=== PATIENT | male | born 1955 | race African-American/Black ===

== ENCOUNTER 2024-01-13 14:39 | Emergency (ER) | payer OTHER, MEDICAID, SELFPAY ==
--- NOTE | ~2024-01-13 | XR_ITS ---
EXAMINATION: XR CHEST, 2 VIEWS CLINICAL INFORMATION: Chest pain COMPARISON: None. TECHNIQUE: PA and lateral views of the chest were obtained. FINDINGS: Lungs are clear. No consolidation, pneumothorax, or pleural effusion. Cardiac and mediastinal contours are normal. Pulmonary vasculature is unremarkable. Trachea is midline. Mild acromioclavicular osteoarthritis bilaterally. XR/XR chest 2V IMPRESSION: No acute cardiopulmonary findings.
[2024-01-13 14:49] VITALS: BP 127/57; PULSE 103; RESP 18; TEMP 36.7; O2SAT 100; BMI 24.3
--- NOTE | 2024-01-13 14:51 | ED_ITS ---
HPI - General Adult General Chief complaint: General Medical Stated complaint: Rib pain/Ulcers/Swollen extremities Time Seen by Provider: 01/13/24 19:59 Source: patient and family Mode of arrival: ambulatory Limitations: no limitations History of Present Illness HPI narrative: Patient diabetic, hypertension used to live in [facility] brought by his daughter to stay with her nowas he is unable to take care of himself. Patient is admitted the hospital from 12/30 to 01/11 was found unresponsive sitting in the car diagnosed as DKA with blood sugar of 781 with GCS of 5 intubated on amoxicillin for bacteremia, patient is very poor historian does not know much about his medical condition also complaining of chronic leg edema Related Data Allergies Allergy/AdvReac Type Severity Reaction Status Date / Time No Known Allergies Allergy Verified 01/13/24 14:55 Review of Systems 2 Review of Systems: Yes all other systems are reviewed and are negative [facility] Social History Social History Smoked in Last 30 Days: No Use of substances other than those prescribed or required for medical reasons: No Advance Directives: No Advance Directives Information Provided: No Do you have a plan to hurt others: No Plan Physical Exam ED Vital Signs: Vital Signs - 24 hr 01/13/24 14:49 01/13/24 20:23 01/13/24 21:30 Temperature 98.1 F 98.7 F Pulse Rate 103 H 82 95 Respiratory Rate 18 Blood Pressure 127/57 L 146/50 H Pulse Oximetry 100 98 100 Oxygen Delivery Method Room Air Room Air Room Air 01/13/24 21:52 Temperature 98.7 F Pulse Rate 95 Respiratory Rate 18 Blood Pressure 141/59 H Pulse Oximetry 100 Oxygen Delivery Method Room Air BMI result Body Mass Index 24.3 Appearance: Alert. Oriented X3. No acute distress. Eyes: PERRLA, No Nystagmus ENT: Pharynx normal. Oral Mucosa moist Neck: Normal inspection. Neck supple. CVS: Normal heart rate and rhythm. Pulses normal. Respiratory: No respiratory distress. Equal air entry bilateral, no wheezing/rales/rhonchi Abdomen: Soft and nontender. Bowel sounds are present, no mass palpable, no CVA tenderness Skin: Skin warm and dry. Normal skin color. Normal skin turgor. Extremities: 3++ lower extremity edema. No calf tenderness Neuro: Oriented X 3. No motor deficit. No sensory deficit.No cerebellar signs , cranial nerves II-XII intact Course Course Course Narrative: This is an RME: Additional HPI, ROS, PE not included below will be deferred to primary provider. This is a 78-[id number]-hvn-male, with a hx of diabetes, who presents to the ER with complaints of ongoing rib pain as well as ulcers on back. Patient just flew into the area from [place], [place] yesterday. Per family member, patient was in a coma for about 1 week, and was discharged yesterday from [facility] in [facility]. Unclear whether not this is from his diabetes or a ?bacteria?. He has paperwork from the hospital however this appears to only be a discharge summary. Vital signs within normal limits. He reports intermittent shortness of breath, no chest pain. Reporting generalized weakness and difficulty walking since hospitalization. Alert and oriented Plan: Attempt to obtain medical records from [facility] in [place], labs Medications Administered Discontinued Medications Generic Name Dose Route Start Last Admin Trade Name Thad PRN Reason Stop Dose Admin Insulin Glargine 40 unit 01/13/24 20:13 01/13/24 20:27 Insulin Glargine,Hum.Rec.Anlog 100 Unit/Ml 10 Ml Vial SUBCUT 01/13/24 20:14 40 unit ONCE ONE Administration Insulin Human Lispro 10 unit 01/13/24 20:13 01/13/24 20:27 Insulin Lispro 100 Unit/Ml 3 Ml Vial SUBCUT 01/13/24 20:14 10 unit ONCE ONE Administration Medical Decision Making Medical Decision Making [facility] Narrative: Patient is stable labs at this time slightly elevated glucose but not ketoacidosis old records reviewed case management consulted patient will be seeing PCP within a month already has insulin at home was given Lantus insulin in the ER has physical therapy at home case management will follow patient as outpatient Lab Data [facility] Lab Attestation statement: I reviewed the patient's lab results. 01/13/24 15:12 01/13/24 15:12 Labs: Lab Results 01/13/24 Range/Units 15:12 WBC 7.6 (4.8-10.8) X10*3/uL RBC 3.79 L (4.60-5.80) X10*6/uL Hgb 8.6 L (14.0-18.0) g/dl Hct 28.1 L (42.0-52.0) % MCV 74.1 L (80.0-98.0) fL MCH 22.7 L (27.0-33.0) pg MCHC 30.6 L (31.0-36.0) g/dl RDW 16.7 H (11.0-16.0) % Plt Count 419 H (160-400) X10*3/uL MPV 9.1 L (9.4-12.4) fL Immature Gran % (Auto) 0.3 (0.0-0.4) % Neut % (Auto) 73.4 H (45-73) % Lymph % (Auto) 18.7 L (20-40) % [place] % (Auto) 6.7 (2-11) % Eos % (Auto) 0.4 (0-4) % Baso % (Auto) 0.5 (0-2) % Lymph # (Auto) 1.4 (1.2-4.9) X10*3/uL [place] # (Auto) 0.5 (0.1-1.2) X10*3/uL Eos # (Auto) 0.0 (0.0-0.4) X10*3/uL Baso # (Auto) 0.0 (0.0-0.2) X10*3/uL Abs Immat Gran (auto) 0.02 (0.00-0.03) X10*3/uL Absolute Neuts (auto) 5.6 (2.0-8.3) x10*3/uL Absolute Nucleated RBC 0.000 (0.0-0.012) X10*3/uL Nucleated RBC % (auto) 0.0 (0.0-0.2) /100WBC Sodium 140 (135-145) mmol/L Potassium 4.1 (3.3-5.1) mmol/L Chloride 105 (96-108) mmol/L Carbon Dioxide 27 (22-29) mmol/L Anion Gap 12 (12-20) BUN 20 H (9-16) mg/dL Creatinine 1.11 (0.5-1.4) mg/dL Estim Creat Clear Calc 66.6 Estimated GFR > 60 Random Glucose 378 H* (60-115) mg/dL Calcium 8.3 L (8.4-10.2) mg/dL Total Bilirubin 0.2 (0.0-1.0) mg/dL Direct Bilirubin < 0.2 (0.0-0.5) mg/dL AST 106 H (5-37) U/L ALT 109 H (0-40) U/L Alkaline Phosphatase 79 (39-117) U/L Troponin I High Sens 5.7 (<3.5-35.0) ng/L Total Protein 6.5 (6.5-8.0) g/dL Albumin 3.0 L (3.5-5.0) g/dL Independent Interpretation I performed an independent interpretation of an: Plain X-Ray Radiology Impression Discussion of test interpretation with radiology: I have reviewed the radiologist's reading. Discharge Plan Discharge Clinical Impression: Diabetes mellitus with hyperglycemia Patient Disposition: Home, Self-Care Instructions: Diabetic Hyperglycemia (ED) Additional Instructions: Take your insulin 40 units every night and check your blood sugar twice daily at least Take your other medications as prescribed during discharge from other hospital You need to see PCP within 4 weeks for further management Interventions: ED Discharge Assessment Last Done: 01/13/24 21:52 Discharge Date/Time: 01/13/24 21:54 Print Language: Kuwaiti
--- NOTE | 2024-01-13 14:58 | ECG_ITS ---
Test Reason : chest pain Blood Pressure : / mmHG Vent. Rate : 098 BPM Atrial Rate : 098 BPM P-R Int : 158 ms QRS Dur : 096 ms QT Int : 338 ms P-R-T Axes : 072 064 065 degrees QTc Int : 431 ms Normal sinus rhythm Possible Left atrial enlargement Minimal voltage criteria for LVH, may be normal variant ( Sokolow-Solano ) Nonspecific ST and T wave abnormality Abnormal ECG No previous ECGs available Referred By: Shiloh Mcpherson Electronically Signed By:HIGINIO GUERRERO MD
[2024-01-13 15:17] LABS: MANUAL DIFF FLAG NO
[2024-01-13 15:19] LABS: Basophils Percent Auto 0.5 % (0-2); Eosinophils Percent Auto 0.4 % (0-4); Hematocrit 28.1 % (42.0-52.0); Hemoglobin 8.6 g/dl (14.0-18.0); Imm Gran Abs Auto 0.02 X10*3/uL (0.00-0.03); Imm Gran Pct Auto 0.3 % (0.0-0.4); Lymphocytes Absolute Auto 1.4 X10*3/uL (1.2-4.9); Lymphocytes Percent Auto 18.7 % (20-40); Mean Corpuscular HGB Conc 30.6 g/dl (31.0-36.0); Mean Corpuscular Hemoglobin 22.7 pg (27.0-33.0); Mean Corpuscular Volume 74.1 fL (80.0-98.0); Mean Platelet Volume 9.1 fL (9.4-12.4); Monocytes Absolute Auto 0.5 X10*3/uL (0.1-1.2); Monocytes Percent Auto 6.7 % (2-11); Neutrophils Absolute Auto 5.6 x10*3/uL (2.0-8.3); Neutrophils Percent Auto 73.4 % (45-73); Platelet Count 419 X10*3/uL (160-400); Red Blood Count 3.79 X10*6/uL (4.60-5.80); Red Cell Distribution Width 16.7 % (11.0-16.0); White Blood Count 7.6 X10*3/uL (4.8-10.8)
[2024-01-13 15:39] LABS: Troponin-I High Sensitivity 5.7 ng/L (<3.5-35.0)
[2024-01-13 15:43] LABS: Alanine Aminotransferase 109 U/L (0-40); Alkaline Phosphatase 79 U/L (39-117); Anion Gap 12 (12-20); Aspartate Amino Transferase 106 U/L (5-37); Bilirubin Direct < 0.2 mg/dL (0.0-0.5); Bilirubin Total 0.2 mg/dL (0.0-1.0); Blood Urea Nitrogen 20 mg/dL (9-16); Calcium 8.3 mg/dL (8.4-10.2); Carbon Dioxide 27 mmol/L (22-29); Chloride 105 mmol/L (96-108); Creatinine Clr Calc Pharmacy 66.6; Estimated Glomerular Filt Rate > 60; Glucose Random 378 mg/dL (60-115); Potassium 4.1 mmol/L (3.3-5.1); Sodium 140 mmol/L (135-145); Total Protein 6.5 g/dL (6.5-8.0)
[2024-01-13 20:23] VITALS: BP 146/50; PULSE 82; O2SAT 98
[2024-01-13] MEDS: Insulin Glargine,Hum.rec.anlog 100 UNIT/ML 10 ML VIAL 40 UNIT SUBCUT (20:27)
[2024-01-13] MEDS: Insulin Lispro 100 UNIT/ML 3 ML VIAL 10 UNIT SUBCUT (20:27)
--- NOTE | 2024-01-13 21:18 | MHC.CM.ED ---
CM consult from Dr. Whitman. Met with patient and his daughter, Reena Hernandez ([phone]). Reena has supplied records from [facility] in [place], [place]. Her father was discharged from there yesterday and flew to [place]. He was homeless there. Was hospitalized from 12/30-01/11 with DKA, cardiac arrest, acute respiratory failure, JEN and sessis (nasal MRSA). Pt was discharged with a 30 day supply of his discharge medications: amoxicillin, jardiance, metformin, avorvastin, asa, and lantis insulin. Also d/c with a glucometer. D/C Summary includes follow up for diabetes management, completion of antibiotics and PCP followup for medication non-compliance. Per Reena, patient currently has [employer] Medicare. She has been working on obtaining insurance and PCP for patient. Patient will be active with [facility] on 01/21/2024 and Reena is working on MH application. Pt has solid family supports locally. Reena has called the [facility] and was told the waiting list for initial PCP appointments was 3-4 months out. She states they bring her father to the ED with a request for PCP follow up within the month. She will then bring our ED paperwork to the [facility] for Initial PCP appointment. Daughter denies needing any medications at this time. Pt will live with family and she will be involved with his care. Family has a first floor apartment. Pt uses a cane, ambulates with steady gait and daughter states he wears adult briefs. They have no current services, but daughter has arranged for [facility] as noted. Daughter is aware that she can bring her father back to the ED with any medical concerns. Dr. Whitman aware of above conversation and needs for discharge note with PCP visit within the month.
[2024-01-13 21:30] VITALS: PULSE 95; TEMP 37.1; O2SAT 100
[2024-01-13 21:52] VITALS: BP 141/59; PULSE 95; RESP 18; TEMP 37.1; O2SAT 100
== END 2024-01-13 21:54 | disposition home or self-care (01) ==
PROVIDERS: Physician Assistant Medical; Emergency Provider Internal Medicine
DX: E11.65 Type 2 diabetes mellitus with hyperglycemia (principal); R07.9 Chest pain, unspecified; R53.1 Weakness; R60.0 Localized edema; Z79.4 Long term (current) use of insulin
CPT/HCPCS: 36415; 71046; 80048; 80076; 84484; 85025; 93005; 99284

== ENCOUNTER → 2024-01-13 14:58 | Outpatient (BNV) | payer MEDICARE, SELFPAY | PROVIDERS: Visit Provider Internal Medicine Cardiovascular Disease | DX: R94.31 Abnormal electrocardiogram [ECG] [EKG] (principal) | CPT/HCPCS: 93010 ==

== ENCOUNTER 2024-04-09 09:07 | Outpatient (REF) | payer OTHER, SELFPAY ==
[2024-04-09 16:37] LABS: Microalbum/Creatinine Ratio Ur 14.8 ug/mg cr (<30); Microalbumin Urine 15.5 mg/L
[2024-04-09 20:59] LABS: Alanine Aminotransferase 24 U/L (0-40); Albumin Level 3.8 g/dL (3.5-5.0); Alkaline Phosphatase 68 U/L (39-117); Anion Gap 13 (12-20); Aspartate Amino Transferase 20 U/L (5-37); Bilirubin Total 0.2 mg/dL (0.0-1.0); Blood Urea Nitrogen 15 mg/dL (9-16); Calcium 9.1 mg/dL (8.4-10.2); Carbon Dioxide 27 mmol/L (22-29); Chloride 108 mmol/L (96-108); Cholesterol 172 mg/dL (<200); Estimated Glomerular Filt Rate > 60; Glucose Random 80 mg/dL (60-115); HDL Cholesterol 65 mg/dL (>40); LDL Cholesterol Calculated 97 mg/dL (<100); Potassium 3.8 mmol/L (3.3-5.1); Sodium 144 mmol/L (135-145); Total Protein 8.1 g/dL (6.5-8.0); Triglycerides 52 mg/dL (<150)
[2024-04-09 21:18] LABS: TSH reflex Free T4 2.12 uIU/mL (0.32-4.0); Vitamin D 25-OH Total 29.4 ng/mL (>30)
[2024-04-09 22:20] LABS: Reflex LDLD? No
[2024-04-10 04:07] LABS: HBS Num1 0.55 mIU/mL (0-7.99); HBc Num1 0.12 S/CO (0.00-0.79); HBsAGNum1 0.29 S/CO (0.00-0.99); HIV AB/AG Nonreactive (Nonreactive); HIV Num 1 0.07 S/CO (0.00-0.99); Hepatitis A Antibody IgM 0.23 Index (0-0.79); Hepatitis B Core Antibody Nonreactive (Nonreactive); Hepatitis B Surface Antigen Negative (Negative); ~HepC Num1 0.13 S/CO (0.00-0.79); ~Hepatitis A Antibody IgM Nonreactive (Nonreactive); ~Hepatitis B Surface Antibody NONREACTIVE (Nonreactive); ~Hepatitis C Antibody Nonreactive (Nonreactive)
[2024-04-11 23:35] LABS: RPR Rapid Plasma Reagin NON-REACTIVE (NON-REACTIVE)
== END 2024-04-09 09:08 | disposition home or self-care (01) ==
LOC: HO.HHCL 09:07
PROVIDERS: Visit Provider Internal Medicine
DX: E11.65 Type 2 diabetes mellitus with hyperglycemia (principal); F10.10 Alcohol abuse, uncomplicated; Z79.4 Long term (current) use of insulin
CPT/HCPCS: 36415; 80053; 80061; 82043; 82306; 82570; 84443; 86592; 86704; 86706; 86709; 86803; 87340; 87389

== ENCOUNTER 2024-04-15 12:58 | Outpatient (REF) | payer OTHER, SELFPAY ==
[2024-04-18 09:49] LABS: TS Negative Control Passed; TS Panel A 3; TS Panel B 0; TS Positive Control Passed; TSpotTB Negative (Negative)
== END 2024-04-15 12:59 | disposition home or self-care (01) ==
LOC: HO.HHCL 12:58
PROVIDERS: Visit Provider Internal Medicine
DX: Z11.1 Encounter for screening for respiratory tuberculosis (principal)
CPT/HCPCS: 36415; 86481

== ENCOUNTER 2024-08-11 13:02 | Outpatient (AMB) | payer OTHER, SELFPAY ==
--- NOTE | 2024-08-11 14:16 | A.OFFVIS_ITS ---
Intake Visit Reasons: HX Retention/LUTZ/Fam HX Prostate Ca Intake Note: New patient is present for Hx of Urinary Retention/LUTS/Family Hx of Prostate Ca Urology Med: None Antibiotic Allergy: None Blood Thinner: Aspirin Family History: Bladder Cancer? No Prostate Cancer? Yes, Brother Mother: Breast Cancer PVR: 40ml Patient states that he has a lot of urinary frequency issues States he gets up 4-5 times during the night Semiconductor Bonder Required: Yes Semiconductor Bonder Language: Carpenter Supervisor Services: Semiconductor Bonder Present Accompanied by: Self / Same As Patient Allergies No Known Allergies Allergy (Verified 08/11/24 14:57) HPI Comments Details: Jamari is a pleasant Bolivian-speaking male. He is a patient of . He is seen for the following urologic conditions - lower urinary tract symptoms Bolivian translation provided by qualified jalousies installer Lower urinary tract symptoms Prior presentation with nocturia times 4-5, urinary urgency and frequency, weak stream Family history prostate cancer brother Recommend trial of combination therapy alpha-amber +5 AR Organize PSA, bladder ultrasound to measure prostate Plan office cystoscopy [facility] Medical History (Updated 08/11/24 @ 15:16 by William Cabrera MD) Nocturia H/O urinary frequency H/O urinary retention Lower urinary tract symptoms (LUTS) Vitamin D deficiency, unspecified Essential (primary) hypertension White matter disease, unspecified Bilateral primary osteoarthritis of knee Alcohol abuse Mixed hyperlipidemia Type 2 diabetes mellitus with hyperglycemia Family History Brother Prostate cancer Mother Diabetes mellitus, type II Breast cancer in female Review of Systems Const Denies chills and Denies fever(s) Card Reports no additional complaints and Denies syncope Resp Denies cough GI Denies abdominal pain and Denies heartburn Reports as per HPI and Denies change in libido Neuro Denies syncope Psych Denies change in libido Endo Denies change in libido Physical Exam Const General: cooperative, healthy appearing, comfortable and no acute distress Orientation/consciousness: patient oriented x3 HEENT Face and sinus: Yes normal facial exam Mouth: moist mucous membranes Neck Neck: Yes normal visual inspection, Yes full ROM and Yes trachea midline Chest Chest palpation & inspection: normal inspection of the chest Resp Effort & Inspection: normal respiratory effort, able to speak in complete sentences and no respiratory distress GI Inspection: Yes normal to inspection Back/Spine/Pelvis Cervical Spine: normal cervical lordosis Thoracic/Lumbar Spine: thoracic and lumbar spine normal to inspection Skin General skin exam: no rashes or lesions noted Neuro General: patient oriented x3, gait normal, tone normal and moves all extremities Extrem General: Yes normal to inspection and Yes capillary refill normal Office Procedures Post Void Residual Post Residual Void Post Void Residual (PVR): 40 [id number]-[id number] Void Residual by ultrasound Quality Reporting (2019) Benign Prostatic Hyperplasia ([facility] 771) AUA symptom score: 12 Quality of life due to urinary symptoms: If you were to spend the rest of your life with your urinary condition the way it is now, how would you feel about that?: Mixed: about equally satisfied and dissatisfied Assessment & Plan Assessment & Plan (1) Incomplete emptying of bladder due to benign prostatic hyperplasia: Code(s): N40.1 - Benign prostatic hyperplasia with lower urinary tract symptoms; R33.9 - Retention of urine, unspecified Category: Medical (2) Lower urinary tract symptoms (LUTS): Code(s): R39.9 - Unspecified symptoms and signs involving the genitourinary system Category: Medical Plan Start combination therapy Bladder imaging Office cystoscopy Orders: Orders US bladder 2 Months R39.9 - Unspecified symptoms and signs involving the genitourinary system Prostate Specific Antigen Today E11.69 - Type 2 diabetes mellitus with other specified complication, N52.1 - Erectile dysfunction due to diseases classified elsewhere, R39.9 - Unspecified symptoms and signs involving the genitourinary system AMB Post Void Residual by ultrasound Today R33.9 - Retention of urine, unspecified Medications: New finasteride 5 mg PO DAILY 90 days 90 tabs 1RF N13.8 - Other obstructive and reflux uropathy, N40.1 - Benign prostatic hyperplasia with lower urinary tract symptoms, R33.9 - Retention of urine, unspecified, R39.9 - Unspecified symptoms and signs involving the genitourinary system tamsulosin 0.4 mg PO BEDTIME 90 days 90 caps 1RF N13.8 - Other obstructive and reflux uropathy, N40.1 - Benign prostatic hyperplasia with lower urinary tract symptoms, R39.9 - Unspecified symptoms and signs involving the genitourinary system Patient Instructions: Imaging studies, laboratory and physical exam results were discussed and reviewed in detail. No major barriers to patient understanding were identified. An opportunity to ask questions regarding the treatment plan was provided. All questions were answered. The patient expressed understanding and agreement with the above treatment plan. The patient is aware they should contact our office by phone for worsening of their current condition or the appearance of new urologic symptoms. Compliance is encouraged with any medications and followup testing that is ordered. It is a privilege to participate in the urologic care of your patient. If you have any questions or concerns regarding treatment for the above conditions, or other urologic issues, please do not hesitate to contact me. The office telephone contact is [phone]. This note is constructed using voice recognition software. While every effort has been made to ensure accuracy snack stewardess errors may have been included. Yours sincerely, Dr William Cabrera MD, [facility] Providers of Expert, Compassionate Care for the Genitourinary System Coding Level of Care Code New Pt Level 4 (74954) Diagnoses Incomplete emptying of bladder due to benign prostatic hyperplasia N40.1; R33.9 Lower urinary tract symptoms (LUTS) R39.9 CPT Codes Post Residual Void - PVR CPT Code: 61102-Ctds Void Residual by ultrasound ([id number]) AUA Symptom Score AUA Incomplete emptying - It does not feel like I empty my bladder all the way.: 1 - Less than 1 time in 5 Frequency - I have to go again less than two hours after I finish urinating.: 4 - More than half the time Intermittency - I stop and start again several times when I urinate.: 3 - About half the time Urgency - It is hard to wait when I have to urinate.: 0 - Not at all Weak stream - I have a weak urinary stream.: 0 - Not at all Straining - I have to push or strain to begin urination.: 0 - Not at all Nocturia - I get up to urinate after I go to bed until the time I get up in the morning.: 4 times AUA Symptom Score: 12 Quality of life due to urinary symptoms: If you were to spend the rest of your life with your urinary condition the way it is now, how would you feel about that?: Mixed: about equally satisfied and dissatisfied Source: Lucio HERNÁNDEZ, Audra NAIK Jr, O'Dena MP, et al, and the Measurement Committee of the [employer]. The [employer] symptom index for benign prostatic hyperplasia. J Urol. 1992; 148: 0445-0140. Copyright 1992 [employer]
== END 2024-08-11 15:19 | disposition home or self-care (01) ==
PROVIDERS: PCP Internal Medicine; Visit Provider Urology
DX: N40.1 Benign prostatic hyperplasia with lower urinary tract symptoms (principal); R33.9 Retention of urine, unspecified; R39.9 Unspecified symptoms and signs involving the genitourinary system
CPT/HCPCS: 99204

== ENCOUNTER → 2024-08-11 13:02 | Outpatient (BNVA) | payer OTHER, SELFPAY | PROVIDERS: PCP Internal Medicine; Visit Provider Urology | DX: N40.1 Benign prostatic hyperplasia with lower urinary tract symptoms (principal); N13.8 Other obstructive and reflux uropathy; R33.9 Retention of urine, unspecified; R35.1 Nocturia; R39.9 Unspecified symptoms and signs involving the genitourinary system; Z80.42 Family history of malignant neoplasm of prostate | CPT/HCPCS: 51798; 99202 ==

== ENCOUNTER 2024-09-29 11:17 | Outpatient (REF) | payer OTHER, SELFPAY ==
--- NOTE | ~2024-09-29 | US_ITS ---
EXAMINATION: US BLADDER HISTORY: R39.9 - Unspecified symptoms and signs involving the genitourinary system COMPARISON: There are no prior studies for comparison. FINDINGS: Sonographic examination of the urinary bladder was performed before and after voiding. Before voiding, the urinary bladder measured 10.6 x 5.2 x 8.8 cm for an estimated volume of 255 mL. No intrinsic bladder abnormality is identified. Bilateral ureteral jets are identified. After voiding, the urinary bladder measured 4.4 x 2.4 x 3.6 cm for an estimated volume of 20 mL. The prostate measures 3.3 x 3.5 x 4.0 cm. US/US bladder IMPRESSION: Post void bladder residual of 20 mL. No intrinsic bladder abnormality is identified. Electronically signed by: Devon Stephens MD 10/01/2024 09:58 AM EST
--- OUTSIDE RECORDS SUMMARY | 2024-09-29 11:39 | XMS_ITS | Continuity of Care Document ---
Author Organization [facility] Address [address] [place] [address] Phone Care Team Providers Care Print Machine Operator Name Role Phone A Telephone, Call Unavailable Unavailable Advance Directives Directive Yes / No Effective Date File Name No Information Encounters Encounter Description Practice Location Reason(s) For Visit Diagnoses Date Provider Providers Copied on Encounter [facility], [address], [place], [id number], tel:[phone] [facility] No Information A Telephone Call. . Family [...]
== END 2024-09-29 11:18 | disposition home or self-care (01) ==
LOC: HO.US 11:17
PROVIDERS: PCP Internal Medicine; Visit Provider Urology
DX: R39.9 Unspecified symptoms and signs involving the genitourinary system (principal)
CPT/HCPCS: 76857

== ENCOUNTER → 2024-09-29 11:19 | Outpatient (BNV) | payer OTHER, SELFPAY | PROVIDERS: PCP Internal Medicine; Visit Provider Radiology Diagnostic Radiology | DX: R39.9 Unspecified symptoms and signs involving the genitourinary system (principal) | CPT/HCPCS: 76857 ==

== ENCOUNTER 2024-10-05 13:22 | Outpatient (REF) | payer OTHER, SELFPAY ==
[2024-10-05 14:56] LABS: Prostate Specific Antigen 0.43 ng/mL (<0.05-4.0)
--- OUTSIDE RECORDS SUMMARY | 2024-10-05 15:41 | XMS_ITS | Continuity of Care Document ---
Author Organization [facility] Address [address] [place] [address] Phone Care Team Providers Care Separator Inserter Name Role Phone A Telephone, Call Unavailable Unavailable Advance Directives Directive Yes / No Effective Date File Name No Information Encounters Encounter Description Practice Location Reason(s) For Visit Diagnoses Date Provider Providers Copied on Encounter [facility], [address] [place], [place], [id number], tel:[phone] [facility] No Information A Telephone Call. . Family History Family Member Type Diagnosis Age At Onset No Information Payers Payer name Insurance type Covered alliance party ID Authoriza tion(s) No Information Social [...]
== END 2024-10-05 13:23 | disposition home or self-care (01) ==
LOC: HO.LAB 13:22
PROVIDERS: PCP Internal Medicine; Visit Provider Urology
DX: E11.69 Type 2 diabetes mellitus with other specified complication (principal); N52.1 Erectile dysfunction due to diseases classified elsewhere; R39.9 Unspecified symptoms and signs involving the genitourinary system; Z12.5 Encounter for screening for malignant neoplasm of prostate; Z12.11 Encounter for screening for malignant neoplasm of colon; K59.01 Slow transit constipation; E78.2 Mixed hyperlipidemia; I10 Essential (primary) hypertension; M81.0 Age-related osteoporosis without current pathological fracture
CPT/HCPCS: 36415; 84153; 99212

== ENCOUNTER 2024-10-05 13:51 | Outpatient (AMB) | payer OTHER, SELFPAY ==
[2024-10-05 13:59] VITALS: BP 132/64; PULSE 76; O2SAT 99; BMI 26.7
--- NOTE | 2024-10-05 13:59 | MHC.OFFVIS ---
Vital Signs 10/05/24 13:59 Height 5 ft 10 in Weight 186 lb 1.122 oz BMI 26.7 BP 132/64 Blood Pressure Location Rt brachial Position Sitting Pulse 76 Pulse Source Pulse Oximeter Pulse Oximetry (%) 99 Oxygen Delivery Method Room Air Intake Visit Reasons: Colonoscopy Screening Intake Note: NEW PATIENT Reason; [place] scrn Prior hx of colo/egd? N Concerns/Questions? No significant concerns per pt. Allergies No Known Allergies Allergy (Verified 10/05/24 14:00) HPI HPI Colonoscopy Screening: Details: 70-year-old male with past medical history of hyperlipidemia, diabetes, osteoarthritis, hypertension i s here today for pre colonoscopy screening.? Patient was sent to us by his PCP.? This is his first colonoscopy screening.? Patient denies any gastrointestinal symptoms in the past or at present.? Denies any personal or family history of gastrointestinal disease, colon polyps, or CRC.? Patient reports to be times. Denies melena, hematochezia. Denies history of difficulty with sedation or anesthesia in the past.? Negative for history of sleep apnea.? Denies any history of cardiac, renal, pulmonary, or hepatic disease.?? No history of infectious? diseases like hepatitis A, B, C, HIV or tuberculosis.? Patient is on low-dose aspirin. Patient just moved here from [facility] in December to be close to his daughter and his son. Patient has a history of alcohol, crack, cocaine and crystal meth use while he was living in [facility]. Free of drug and alcohol use for the last 6 months [facility] Medical History Nocturia H/O urinary frequency H/O urinary retention Lower urinary tract symptoms (LUTS) Vitamin D deficiency, unspecified Essential (primary) hypertension White matter disease, unspecified Bilateral primary osteoarthritis of knee Alcohol abuse Mixed hyperlipidemia Type 2 diabetes mellitus with hyperglycemia Family History Brother Prostate cancer Mother Diabetes mellitus, type II Breast cancer in female Review of Systems Const Denies weight gain and Denies weight loss ENT Reports no additional complaints, Denies dysphagia and Denies odynophagia Card Reports no additional complaints Resp Reports no additional complaints GI Denies abdominal pain, Denies belching, Denies melena, Denies bloating, Denies change in bowel habits, Denies dysphagia, Denies excessive flatus, Denies dyspepsia, Denies heartburn, Denies diarrhea, Denies loose stools, Denies nausea, Denies odynophagia and Denies vomiting Reports no additional complaints Musc Reports no additional complaints Neuro Reports no additional complaints Psych Reports no additional complaints Endo Reports no additional complaints Physical Exam Vital Signs: Last Vital Signs Pulse 76 10/05/24 13:59 BP 132/64 10/05/24 13:59 Pulse Ox 99 10/05/24 13:59 Oxygen Delivery Method Room Air 10/05/24 13:59 BMI result Body Mass Index 26.7 Const General: healthy appearing, no acute distress and well developed Nutritional Appearance: well nourished Orientation/consciousness: patient oriented x3 Resp Effort & Inspection: normal respiratory effort, able to speak in complete sentences, no tracheal deviation and symmetric chest movement Auscultation: clear to auscultation bilaterally Cardio Rate: regular rate GI Inspection: Yes normal to inspection and No distended Palpation (GI): Soft to palpation, not firm, nontender and No hepatosplenomegaly present Auscultation: normal bowel sounds General: Yes no CVA tenderness Back/Spine/Pelvis Back: no CVA tenderness Skin General skin exam: elasticity normal, turgor normal and dry skin Neuro General: patient oriented x3 Psych Appearance: grossly normal Mental Status: mental status grossly normal Assessment & Plan Assessment & Plan (1) Screen for colon cancer: Code(s): Z12.11 - Encounter for screening for malignant neoplasm of colon (2) Constipation: Code(s): K59.00 - Constipation, unspecified Qualifiers: Constipation type: slow transit constipation Qualified Code(s): K59.01 - Slow transit constipation Plan Patient denies any cardiac or respiratory symptoms.? Denies any issues with anesthesia in the past.? Denies any history of sleep apnea.? No history infectious diseases in the past or present.? Patient is on low-dose aspirin.? No family or personal history of colon cancer or polyps.? Patient denies melena, hematochezia, unintentional weight loss or ribbon like stools.? Patient reports constipation. Increase fluid intake, fiber and activity to promote better bowel motility. Start Dulcolax daily. Prep instructions given to patient. Patient will return in 2 months to discuss prep. Labs ordered by PCP will review next visit. Patient is agreeable to this plan and verbalizes understanding of instructions. He was given the opportunity to ask questions and all questions answered. Thank you for allowing me to participate in his care Medications: New bisacodyl (Dulcolax (bisacodyl)) 10 mg (2 x 5 mg) PO BEDTIME 60 tabs 4RF Coding Level of Care Code New Pt Level 3 (42031) Diagnoses Screen for colon cancer Z12.11 Slow transit constipation K59.01 Constipation type: slow transit constipation Time Spent (min) 40 Comment 30 minutes spent with patient and additional 10 minute spent reviewing his records
--- OUTSIDE RECORDS SUMMARY | 2024-10-05 16:17 | XMS_ITS | Continuity of Care Document ---
Author Organization [facility] Address [address] [place] [address] Phone Care Team Providers Care Household Manager Name Role Phone A Telephone, Call Unavailable Unavailable Advance Directives Directive Yes / No Effective Date File Name No Information Encounters Encounter Description Practice Location Reason(s) For Visit Diagnoses Date Provider Providers Copied on Encounter [facility], [address], [place], [id number], tel:[phone] [facility] No Information A Telephone Call. . Family [...]
== END 2024-10-05 14:32 | disposition home or self-care (01) ==
PROVIDERS: PCP Internal Medicine; Visit Provider Nurse Practitioner Family
DX: Z01.818 Encounter for other preprocedural examination (principal); Z12.11 Encounter for screening for malignant neoplasm of colon; K59.01 Slow transit constipation
CPT/HCPCS: 99024

== ENCOUNTER → 2024-10-12 09:47 | Outpatient (BNVA) | payer OTHER, SELFPAY | PROVIDERS: PCP Internal Medicine; Visit Provider Urology | DX: N40.1 Benign prostatic hyperplasia with lower urinary tract symptoms (principal); R33.8 Other retention of urine; R35.1 Nocturia; R39.15 Urgency of urination; R35.0 Frequency of micturition; R39.12 Poor urinary stream | CPT/HCPCS: 52000; 81003; 99212 ==

== ENCOUNTER 2024-12-01 14:28 | Outpatient (AMB) | payer OTHER, SELFPAY ==
--- NOTE | 2024-12-01 14:51 | MHC.OFFVIS ---
Vital Signs 12/01/24 15:08 Height 5 ft 10 in Weight 184 lb 4.903 oz BMI 26.4 BP 148/66 H Blood Pressure Location Rt brachial Position Sitting Pulse 76 Pulse Source Pulse Oximeter Pulse Oximetry (%) 100 Oxygen Delivery Method Room Air Intake Visit Reasons: Discuss colo prep & Constipation Intake Note: ESTABLISHED PATIENT for constipation mgmt and pre op. Chief Complaint; Pt denies any GI concerns at this time. Pt has procedure w/ urology at the end of this month prior to having colonoscopy scheduled. Payroll And Benefits Coordinator Required: No Accompanied by: Self / Same As Patient Allergies No Known Allergies Allergy (Verified 12/01/24 14:51) HPI HPI Discuss colo prep & Constipation: Details: LAST VISIT Screen for colon cancer Constipation Plan Patient denies any cardiac or respiratory symptoms.? Denies any issues with anesthesia in the past.? Denies any history of sleep apnea.? No history infectious diseases in the past or present.? Patient is on low-dose aspirin.? No family or personal history of colon cancer or polyps.? Patient denies melena, hematochezia, unintentional weight loss or ribbon like stools.? Patient reports constipation. Increase fluid intake, fiber and activity to promote better bowel motility. Start Dulcolax daily. Prep instructions given to patient. Patient will return in 2 months to discuss prep. Labs ordered by PCP will review next visit. Patient is agreeable to this plan and verbalizes understanding of instructions. He was given the opportunity to ask questions and all questions answered. ? Thank you for allowing me to participate in his care Medications New bisacodyl (Dulcolax (bisacodyl)) 10 mg (2 x 5 mg) PO BEDTIME 60 tabs 4RF TODAY'S VISIT Patient is here today for follow-up and to discuss going for colonoscopy. Colonoscopy not scheduled yet. Message sent to Surgical schedules to bulk procedure for patient. Patient has bladder surgery end of this month. Patient reports that he is moving his bowels better now that he takes Dulcolax daily. Patient denies any melena, hematochezia, unintentional weight loss or ribbon like stools. Denies any dyspepsia, dysphagia or odynophagia. Patient denies any issues with anesthesia in the past. No history of sleep apnea. On low-dose aspirin. Denies any family history of CRC. [facility] Medical History Nocturia H/O urinary frequency H/O urinary retention Lower urinary tract symptoms (LUTS) Vitamin D deficiency, unspecified Essential (primary) hypertension White matter disease, unspecified Bilateral primary osteoarthritis of knee Alcohol abuse Mixed hyperlipidemia Type 2 diabetes mellitus with hyperglycemia Family History Brother Prostate cancer Mother Diabetes mellitus, type II Breast cancer in female Review of Systems Const Denies weight gain and Denies weight loss ENT Reports no additional complaints, Denies dysphagia and Denies odynophagia Card Reports no additional complaints Resp Reports no additional complaints GI Denies abdominal pain, Denies belching, Denies melena, Denies bloating, Denies change in bowel habits, Denies dysphagia, Denies excessive flatus, Denies dyspepsia, Denies heartburn, Denies diarrhea, Denies loose stools, Denies nausea, Denies odynophagia and Denies vomiting Reports no additional complaints Musc Reports no additional complaints Neuro Reports no additional complaints Psych Reports no additional complaints Endo Reports no additional complaints Physical Exam Const General: healthy appearing, no acute distress and well developed Nutritional Appearance: well nourished Orientation/consciousness: patient oriented x3 Resp Effort & Inspection: normal respiratory effort, able to speak in complete sentences, no tracheal deviation and symmetric chest movement Auscultation: clear to auscultation bilaterally Cardio Rate: regular rate GI Inspection: Yes normal to inspection and No distended Palpation (GI): Soft to palpation, not firm, nontender and No hepatosplenomegaly present Auscultation: normal bowel sounds General: Yes no CVA tenderness Back/Spine/Pelvis Back: no CVA tenderness Skin General skin exam: elasticity normal, turgor normal and dry skin Neuro General: patient oriented x3 Psych Appearance: grossly normal Mental Status: mental status grossly normal Assessment & Plan Assessment & Plan (1) Screen for colon cancer: Code(s): Z12.11 - Encounter for screening for malignant neoplasm of colon (2) Constipation: Code(s): K59.00 - Constipation, unspecified Qualifiers: Constipation type: slow transit constipation Qualified Code(s): K59.01 - Slow transit constipation Plan Continue Dulcolax daily. With expect before during and after procedure discussed with patient. Stressed the importance of good bowel prep and clear liquid diet. Patient denies any cardiac or respiratory symptoms. Will have procedure at the end of this month with urology. He will be seen after the procedure. Patient was encouraged to call us if he will have any GI concerning symptoms or if any questions. Patient is agreeable to current plan of care and verbalizes understanding of instructions. He was given the opportunity to ask questions and all questions answered. Thank you for allowing me to participate in his care Medications: Refilled bisacodyl (Dulcolax (bisacodyl)) 10 mg (2 x 5 mg) PO BEDTIME 180 tabs 2RF Coding Level of Care Code Est Pt Level 3 (34939) Diagnoses Screen for colon cancer Z12.11 Slow transit constipation K59.01 Constipation type: slow transit constipation Time Spent (min) 25 Comment 15 minutes spent with patient and additional 10 minute spent reviewing his records
[2024-12-01 15:08] VITALS: BP 148/66; PULSE 76; O2SAT 100; BMI 26.4
--- OUTSIDE RECORDS SUMMARY | 2024-12-01 17:06 | XMS_ITS | Encounter Summary ---
Author Organization [employer] Address [address] [place] [address] Care Team Providers Care Mortgage Loan Assistant Name Role Phone Roma Sharma MD Primary Care Provider + Carlos Eduardo Marinelli PharmD Unavailable [phone] Encounter Details Date Type Department Care Team (Latest Contact Info) Description 11/29/2024 Travel Social History Tobacco Use Types Packs/Day Years Used Date Smoking Tobacco: Never Smokeless Tobacco: Never Alcohol Use Standard Drinks/Week Comments Not Currently 1 (1 standard drink = 0.6 oz pure alcohol) Oca, Used to drink heavily 6 pack/d until 12/2023 for the previous 15y Depression Answer Date Recorded Patient Health Questionnaire-9 Score 12 11/29/2024 Patient Health Questionnaire-9 Score 12 11/29/2024 Last PHQ-9: Questionnaire Data Not on file 0 11/29/2024 Housing Stability Answer Date Recorded What is your housing situation today? I have [employer] 03/30/[address] you li ve. Do you have problems with any of the following? None of the above 03/30/2024 Food Insecurity Answer Date Recorded Within the past 12 months, y ou worried that your food would run out before you got money to buy more: Never True 03/30/2024 Within the past 12 months,th e food you bought just didn't last and you didn't have enough money to get more: Never True 05/2024 Transportation Answer Date Recorded In the past 12 months, has l ack of transportation kept you from medical appts, meetings, work or from getting things needed for daily living? Yes, it has kept me from medical appointments or getting medications. 04/06/2024 Utilities Answer Date Recorded In the past 12 months, has t he electric, gas, oil or water company threatened to shut off services in your home? No 03/30/2024 Depression Answer Date Recorded Patient Health Questionnaire-2 Score 2 11/29/2024 Internet Access Answer Date Recorded Internet Access Q1 Yes 05/21/2024 Internet Access Q2 Not on file 05/21/2024 Sex and Gender Information Value Date Recorded Sex Assigned at Male 01/26/2024 12:32 PM EDT Legal Sex Male 10:25 AM EDT Gender Identity Male 01/26/2024 12:32 PM EDT Sexual Orientation Straight 01/26/2024 12 :32 PM EDT documented as of this encounter Plan of Treatment Upcoming Encounters Date Type Department Care Team (Late st Contact Info) Description 12/03/2024 10:30 AM EDT Medication Management [facility] MEDICINE [address] [place] [phone] Carlos Eduardo Marinelli, Anant [address] [place] [address] 12/17/2024 10:30 AM EDT Office Visit [facility] ADULT DENTAL [address] [place] [phone] Ronald Church, TYRESE [address] [place] [address] 01/04/2025 11:45 AM EDT Office Visit [facility] MEDICINE [address] [place] [phone] Roma Sharma MD [address] [place] [address] 03/29/2025 10:00 AM EDT Office Visit [facility] ADULT DENTAL [address] [place] [address] Heather Victor documented as of this encounter Goals Goal Patient Goal Type Associated Problems Recent Progress Patient-Stated? Author Blood Pressure < 140/90 Blood Pressure 140/80(2024 11:01 AM EST) No Carlos Eduardo Marinelli, PharmSasha Hemoglobin A1c < 7 Result Component 7.1( 10:54 AM EST) No Carlos Eduardo Marinelli PharmD documented as of this encounter Visit Diagnoses Not on filedocumented in this encounter Additional Health Concerns Assessment Noted Time PHQ-9 Depression Total Score: 12 025 10:44 AM EDT documented as of this encounter Care Teams Mortgage Loan Assistant Relationship Specialty Start Date End Date Roma Sharma MD [address] [place] [id number] PCP - General Internal Medicine 04/06/24 Carlos Eduardo Marinelli, Anant [address] [place] [phone] Pharmacist Internal Medicine 05/19/24 documented as of this encounter
--- OUTSIDE RECORDS SUMMARY | 2024-12-01 17:06 | XMS_ITS | Encounter Summary ---
Author Organization [employer] Address [address] [place] [address] Care Team Providers Care Soft Sugar Operator Head Name Role Phone Roma Sharma MD Primary Care Provider + Carlos Eduardo Marinelli PharmD Unavailable [phone] Reason for Visit * Reason Onset Date Comments Med Refill 08/16/2024 Encounter Details Date Type Department Care Team (Late st Contact Info) Description 08/16/2024 Refill [facility] MEDICINE [address] [place], [place] [phone] Roma Sharma MD [address] [place], [place] [phone] Type 2 diabetes mellitus with hyperglycemia, with long-term current use of insulin ([facility]) Social History Tobacco Use Types Packs/Day Years Used Date Smoking Tobacco: Never Smokeless Tobacco: Never Alcohol Use Standard Drinks/Week Comments Not Currently 1 (1 standard drink = 0.6 oz pure alcohol) [place]ca, Used to drink heavily 6 pack/d until 12/2023 for the previous 15y Housing Stability Answer Date Recorded What is your housing situation today? I have [employer] 03/30/[address] you [...] Date Recorded Patient Health Questionnaire-2 Score 2 07/30/2024 Internet Access Answer Date Recorded Internet Access [...] Description 12/03/2024 10:30 AM EDT Medication Management [facility] MEDICINE [address] [place] [phone] Carlos Eduardo Marinelli, PharmD [address] [place] [phone] 12/17/2024 10:30 AM EDT Office Visit [facility] ADULT DENTAL [address] [place] [phone] Ronald Church DMD [address] [place] [address] 01/04/2025 11:45 AM EDT Office Visit [facility] MEDICINE [address] [place] [phone] Roma Sharma MD [address] [place] [phone] 03/29/2025 10:00 AM EDT Office Visit [facility] ADULT DENTAL [address] [place] [phone] Heather Victor documented as of this encounter Goals Goal Patient Goal Type Associated Problems Recent Progress Patient-Stated? Author Blood Pressure < 140/90 Blood Pressure 140/80(2024 11:01 AM EST) No Carlos Eduardo Marinelli PharmD Hemoglobin A1c < 7 Result Component 7.1( 5 10:54 AM EST) No Carlos Eduardo Marinelli PharmD documented as of this encounter Visit Diagnoses Diagnosis Type 2 diabetes mellitus with hyperglycemia, with long-term current use of insulin ([facility]) documented in this encounter Care Teams Soft Sugar Operator Head Relationship Specialty Start Date End Date Roma Sharma MD [address] [place] [phone] PCP - General Internal Medicine 04/06/24 Carlos Eduardo Marinelli PharmD [address] [place] [phone] Pharmacist Internal Medicine 05/19/24 documented as of this encounter
--- OUTSIDE RECORDS SUMMARY | 2024-12-01 17:06 | XMS_ITS | Clinical Summary ---
Demographics Address [address] [place] [address] Home Phone Work Phone Mobile Phone Home Phone Preferred Language es Marital Status Taoism Affiliation Unknown Race White Ethnic Group or Author Organization [address] [facility] Address [address] [place] [address] Phone Care Team Providers Care Railroad Accountant Name Role Phone Roma Sharma MD Primary Care Provider [phone] Allergies No known active allergies Medications metFORMIN XR (GLUCOPHAGE-XR) 500 mg 24 hr tablet Take 2 tablets (1,000 mg total) by mouth 2 (two) times a day. 4 Active insulin glargine (Lantus Solostar U-100 Insulin) 100 unit/mL (3 mL) injection pen INJECT 10 UNITS UNDER THE SKIN ONCE DAILY 4 Active liraglutide (Victoza 2-Haja) 0.6 mg/0.1 mL (18 mg/3 mL) injection INJECT UNDER THE SKIN 1.2 mg DAILY 4 Active ketoconazole (NIZORAL) 2 % cream Apply cream to the affected areas of the bottom and top of feet twice daily 4 Active tamsulosin (FLOMAX) 0.4 mg 24 hr capsule Take 2 capsules (0.8 mg total) by mouth daily. 3 Active losartan (COZAAR) 50 mg tablet Take 1 tablet (50 mg total) by mouth daily. 4 025 Active TechLITE Pen Needle 32 gauge x /32 needle use to INJECT victoza and lantus for total of 2 injections per day 4 Active dulaglutide (Trulicity) 0.75 mg/0.5 mL pen injector injection Inject 0.5 mL (0.75 mg total) under the skin. 4 Active acetaminophen (TYLENOL) 500 mg tablet Take 1 tablet (500 mg total) by mouth every 6 hours as needed. 4 Active aspirin 81 mg EC tablet Take 1 tablet (81 mg total) by mouth 1 (one) time each day. 4 Active atorvastatin (LIPITOR) 40 mg tablet Take 1 tablet (40 mg total) by mouth daily. 3 Active blood sugar diagnostic (True Metrix Glucose Test Strip) test strip use to check BLOOD SUGAR 3 TO 4 times DAILY 3 Active glucose 4 gram chewable tablet Chew 4 tablets (16 g total). 4 Active gabapentin (NEURONTIN) 300 mg capsule TAKE 2 CAPSULES BY MOUTH 3 TIMES DAILY FOR 30 DAYS 3 Active insulin aspart (NovoLOG Flexpen U-100 Insulin) 100 unit/mL (3 mL) injection pen Use TID AC meals according to scale: 150-200=2u/201 -250=4u/251-30 0=6u/301-350=8 u/351-400=10u/ 401-450=12u/ more than 450= 15u and call PCP 4 Active TRUEplus Lancets 33 gauge misc Use to check blood sugar 3-4 times a day 3 Active lisinopriL (PRINIVIL,ZESTRIL) 20 mg tablet Take 1 tablet (20 mg total) by mouth 1 (one) time each day. 3 Active Cialis 20 mg tablet Take 1 tablet (20 mg total) by mouth. 3 Active Jardiance 25 mg tablet Take 1 tablet (25 mg total) by mouth 1 (one) time each day. 4 Active diclofenac (VOLTAREN) 1 % topical gelIndications:Lola sofía osteoarthritis of right knee,Primary osteoarthritis of left knee Apply 4 g topically 4 (four) times a day if needed (pain or swelling). 100 g 2 4 Active Active Problems Problem Noted Date Diagnosed Date Non-restorable tooth 06/24/2024 Lower urinary tract symptoms (LUTS) 06/15/2024 Overview (07/09/2024): Last Assessment & Plan: - pt has history of urinary retention in the past, and family history of prostate cancer - will refer to urology Primary hypertension 04/22/2024 Overview (07/09/2024): Last Assessment & Plan: Start low dose losartan and fu BP with me in 4w, will do BMP then Primary osteoarthritis of both knees 04/22/2024 Overview (07/09/2024): Last Assessment & Plan: - advised regarding weight reduction, increased exercise, avoiding going up and down the stairs - he will start going to an [facility] program to increase physical activity Vitamin D deficiency 04/22/2024 Overview (07/09/2024): Last Assessment & Plan: Vit D levels is fairly normal at this time, we'll restart Vit at upcoming appts so that we can closely fu DM med tolerance first. 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 Mixed hyperlipidemia 04/12/2024 Closed fracture of right low er extremity with routine healing 04/12/2024 Alcohol abuse 04/12/2024 Limited access to food 04/12/2024 Type 2 diabetes mellitus wit h hyperglycemia, with long-term current use of insulin Encounters Date Type Department Care Team Description 10/22/2024 10:15 AM EST Office Visit Orthopedic Surgery - [place] [address] [place] [address] [place] [phone] Momo Minor, FRACISCO Poorly controlled type 2 diabetes mellitus with neuropathy (CMS/HCC) (Primary Dx); Hammertoes of both feet; PAD (peripheral artery disease) (CMS/HCC); Dermatophytosis, nail from Last 3 Months Social History Tobacco Use Types Packs/Day Years Used Date Smoking Tobacco: Never Assessed Sex and Gender Information Value Date Recorded Sex Assigned at Not on file Legal Sex Male 11:05 AM EDT Gender Identity Not on file Sexual Orientation Not on file Obstetrics History Last Filed Vital Signs Vital Sign Reading Time Taken Comments Blood Pressure 120/60 01/21/2024 12:03 PM EDT Pulse 85 01/21/2024 12:03 PM EDT Temperature - - Respiratory Rate - - Oxygen Saturation - - Inhaled Oxygen Concentration - - Weight 87.5 kg (193 lb) 10/22/2024 10:23 AM EST Height 167.6 cm (5' 5.98 ) 10/22/2024 10:[address] Body Mass Index 31.17 10/22/2024 10:23 AM EST Plan of Treatment Upcoming Encounters Date Type Department Care Team (Late st Contact Info) Description 01/18/2025 10:00 AM EDT Office Visit Orthopedic Surgery - [place] [address] [phone] Momo Minor DPM [address] [address] Health Maintenance Due Date Last Done Comments Diabetes: Annual Foot Exam 1966 Diabetes: Annual Retina Eye Exam 1966 Hepatitis A Vaccines (1 of 2 - Risk 2-dose series) 1975 Zoster Vaccines (1 of 2) 2006 RSV Immunization Patients 60+ Years Old (1 - Risk 60-74 years 1-dose series) 2016 Cholesterol Screening (Lipid Panel) 04/15/2024 Colorectal Cancer Screening: Colonoscopy 04/15/2024 Diabetes: Annual Urine Albumin-Creatinine Ratio (uACR) 04/15/2024 Falls Risk Assessment 04/15/2024 Hepatitis C Screening 04/15/2024 Medicare Annual Wellness Visit 04/15/2024 Social Influencers of Health Screening 04/15/2024 Diabetes: Annual GFR (Glomerular Filtration Rate) 01/07/2025 01/08/2024, 01/08/2024, 01/05/2024, Additional history exists Hypertension/CHF/CAD Annual BMP Blood Test 01/07/2025 01/08/2024, 01/08/2024, 01/05/2024, Additional history exists Diabetes: Blood Sugar Control Test (HGBA1C) 01/27/2025 07/30/2024, 12/31/2023, 12/12/2023 Depression Screening 10/04/2025 10/04/2024 DTaP,Tdap,and Td Vaccines (3 - Td or Tdap) 06/15/2034 06/15/2024, 07/16/2015 Influenza Vaccine Completed 06/15/2024, , 06/25/2019, Additional history exists COVID-19 Vaccine Completed 06/17/2024 Pneumococcal Vaccine: 50+ Years Completed 06/28/2024 Hepatitis B Vaccines Completed 08/25/2024, 06/28/20 HIB Vaccines Aged Out No longer eligi ble based on patient's age to complete this topic HPV Vaccines Aged Out No longer eligi ble based on patient's age to complete this topic IPV Vaccines Aged Out No longer eligi ble based on patient's age to complete this topic MMR Vaccines Aged Out No longer eligi ble based on patient's age to complete this topic Meningococcal ACWY Vaccine Aged Out N o longer eligible based on patient's age to complete this topic Meningococcal B Vacine Aged Out No lo nger eligible based on patient's age to complete this topic RSV Immunization Patients Under 20 months Aged Out No longer eligible based on patient's age to complete this topic Varicella Vaccines Aged Out No longer eligible based on patient's age to complete this topic Insurance * Guarantor: Jamari Marinelli Account Type Relation to Patient Date of Phone Billing Address Personal/Family Self 1955 [address] [place] [address] [facility] MEDICARE Member Subscriber Plan / Payer (Ef fective 2024-Present) Name:Jamari Marinelli Relation to Subscriber:Self Name:Jamari Marinelli Payer ID:[id number] Group ID:[id number] Type:Not on file Address: [facility] [address] [address] Care Teams Railroad Accountant Relationship Specialty Start Date End Date Roma Sharma MD [address] [place] [phone] [facility] - General 05/26/24
--- OUTSIDE RECORDS SUMMARY | 2024-12-01 17:06 | XMS_ITS | Continuity of Care Document ---
Author Organization [facility] Address [address] [place] [address] Phone Care Team Providers Care Belt Brander Name Role Phone A Telephone, Call Unavailable Unavailable Advance Directives Directive Yes / No Effective Date File Name No Information Encounters Encounter Description Practice Location Reason(s) For Visit Diagnoses Date Provider Providers Copied on Encounter [facility], [address] [place], [place], [id number], tel:[phone] [facility] No Information A Telephone Call. . Family History Family Member Type Diagnosis Age At Onset No Information Payers Payer name Insurance type Covered democrat ID Authoriza tion(s) No Information Social History [...]
--- OUTSIDE RECORDS SUMMARY | 2024-12-01 17:06 | XMS_ITS | Encounter Summary ---
Author Organization [employer] Address [address] [facility] 7t [place] [address] Care Team Providers Care Windows Systems Administrator Name Role Phone Roma Sharma MD Primary Care Provider + Carlos Eduardo Marinelli PharmD Unavailable [phone] Reason for Visit * Reason Onset Date Comments Med Refill 10/04/2024 Encounter Details Date Type Department Care Team (Late st Contact Info) Description 10/04/2024 Refill [facility] [address] [place], [place] [phone] Roma Sharma MD [address] [place], [place] [phone] Type 2 diabetes mellitus with hyperglycemia, with long-term current use of insulin ([facility]) Social History Tobacco Use Types Packs/Day Years Used Date Smoking Tobacco: Never Smokeless Tobacco: Never Alcohol Use Standard Drinks/Week Comments Not Currently 1 (1 standard drink = 0.6 oz pure alcohol) Oca, Used to drink heavily 6 pack/d until 12/2023 for the previous 15y Depression Answer Date Recorded Patient Health Questionnaire-9 Score 17 10/04/2024 Patient Health Questionnaire-9 Score 17 10/04/2024 Last PHQ-9: Questionnaire Data Not on file 0 10/04/2024 Housing Stability Answer Date Recorded What is [...] Answer Date Recorded Patient Health Questionnaire-2 Score 6 10/04/2024 Internet Access Answer Date Recorded Internet Access [...] Description 12/03/2024 10:30 AM EDT Medication Management [facility] [address] [place] [address] Carlos Eduardo Marinelli, PharmD [address] [place] [address] 12/17/2024 10:30 AM EDT Office Visit [facility] ADULT DENTAL [address] [place] [address] Ronald Church, TYRESE [address] [place] [address] 01/04/2025 11:45 AM EDT Office Visit [facility] [address] [place] [phone] Roma Sharma MD [address] [place] [address] 03/29/2025 10:00 AM EDT Office Visit [facility] [address] [place] [address] Heather Victor documented as of this encounter [...] hyperglycemia, with long-term current use of insulin ([facility]) documented in this encounter Additional Health Concerns Assessment Noted Time PHQ-9 Depression Total Score: 17 025 10:25 AM EST documented as of this encounter Care Teams Windows Systems Administrator Relationship Specialty Start Date End Date Roma Sharma MD [address] [place] [address] PCP - General Internal Medicine 04/06/24 Carlos Eduardo Marinelli PharmD [address] [place] [address] Pharmacist Internal Medicine 05/19/24 documented as of this encounter
--- OUTSIDE RECORDS SUMMARY | 2024-12-01 17:06 | XMS_ITS | Encounter Summary ---
Author Organization [employer] Address [address] [place] [address] 7 [place] [address] Care Team Providers Care Groundskeeper Porter Name Role Phone Roma Sharma MD Primary Care Provider + Carlos Eduardo Marinelli PharmD Unavailable [phone] Reason for Visit * Reason Onset Date Comments Chart prep 11/04/2024 Encounter Details Date Type Department Care Team ([facility] st Contact Info) Description 11/04/2024 Telephone [facility] [address] [place], [place] [phone] Roma Sharma MD [address] [place], [place] [phone] Chart prep Social History Tobacco Use Types Packs/Day Years [...] PM EDT documented as of this encounter Miscellaneous Notes * Telephone Encounter - Flaquita Arreola MA - 11/04/2024 3:12 PM EST Chart Prep Labs: not done Images: done Vaccines due: yes Referrals: pending appt Screenings: colonoscopy Overdue care gaps: A1C, Glucose documented in this encounter Plan of Treatment Upcoming Encounters Date Type Department Care Team (Late st Contact Info) Description 12/03/2024 10:30 AM EDT Medication Management [facility] [address] [place] [phone] Carlos Eduardo Marinelli, PharmD [address] [place] [address] 12/17/2024 10:30 AM EDT Office Visit [facility] ADULT DENTAL [address] [place] [address] Ronald Church, DMD [address] [place] [address] 01/04/2025 11:45 AM EDT Office Visit [facility] [address] [place] [address] Roma Sharma MD [address] [place] [address] 03/29/2025 10:00 AM EDT Office Visit [facility] [address] [place] [address] Heather Victor documented as of this encounter [...] Noted Time PHQ-9 Depression Total Score: 17 10/04/ 025 10:25 AM EST documented as of this encounter Care Teams Groundskeeper Porter Relationship Specialty Start Date End Date Roma Sharma MD [address] [place] [phone] PCP - General Internal Medicine 04/06/24 Carlos Eduardo Marinelli PharmD [address] [place] [address] Pharmacist Internal Medicine 05/19/24 documented as of this encounter
--- OUTSIDE RECORDS SUMMARY | 2024-12-01 17:06 | XMS_ITS | Encounter Summary ---
Author Organization [employer] Address 75 [facility] 7t [place] [address] Care Team Providers Care Acute Care Occupational Therapist Name Role Phone Roma Sharma MD Primary Care Provider + Carlos Eduardo Marinelli PharmD Unavailable [phone] Reason for Visit * Reason Onset Date Comments Medication Question 11/26/2024 Encounter Details Date Type Department Care Team ([facility] st Contact Info) Description 11/26/2024 Telephone [facility] [address] [place], [place] [phone] Roma Sharma MD [address] [place], [place] [phone] Medication Question Social History Tobacco Use Types Packs/Day Years Used Date Smoking Tobacco: Never Smokeless Tobacco: Never Alcohol Use Standard Drinks/Week Comments Not Currently 1 (1 standard drink = 0.6 oz pure alcohol) Oca, Used to drink heavily 6 pack/d until 12/2023 for the previous 15y Depression Answer Date Recorded Patient Health Questionnaire-9 Score 10 11/12/2024 Patient Health Questionnaire-9 Score 10 11/12/2024 Last PHQ-9: Questionnaire Data Not on file 0 11/12/2024 Housing Stability Answer Date Recorded What is [...] Answer Date Recorded Patient Health Questionnaire-2 Score 3 11/12/2024 Internet Access Answer Date Recorded Internet Access [...] encounter Miscellaneous Notes * Telephone Encounter - Kristy Tamayo RN - 11/26/2024 11:27 AM EST TC placed to patient [phone] in regards to below message. Patient advised insurance will only cover a new meter q5 years. Patient advised to bring meter to [facility] pharmacy and inform them of meter not working to see if they are able to assist patient. Patient verbalized understanding and reports he will come to [facility] pharmacy today. Patient to f/u PRN. * Telephone Encounter - Kandice Andrea - 11/26/2024 10:12 AM EST PT walked in stating that he currently has Freestyle Rob 3 and it's not working. PT states machine is not turning on even after charging it to max. PT would like to have a new one sent to Pharmacy downstairs. PT would like a call in regards to whether he should remove the sensor in his arm. documented in this encounter Plan of Treatment Upcoming Encounters Date Type Department Care Team (Late st Contact Info) Description 12/03/2024 10:30 AM EDT Medication Management [facility] [address] [place] [address] Carlos Eduardo Marinelli PharmD [address] [place] [address] 12/17/2024 10:30 AM EDT Office Visit [facility] ADULT DENTAL [address] [place] [address] Ronald Church, DMD [address] [place] [address] 01/04/2025 11:45 AM EDT Office Visit [facility] [address] [place] [address] Roma Sharma MD [address] [place] [address] 03/29/2025 10:00 AM EDT Office Visit [facility] ADULT D[facility] [address] [place] [address] Heather Victor documented as of this encounter [...] Assessment Noted Time PHQ-9 Depression Total Score: 10 025 2:14 PM EST documented as of this encounter Care Teams Acute Care Occupational Therapist Relationship Specialty Start Date End Date Roma Sharma MD [address] [place] [address] PCP - General Internal Medicine 04/06/24 Carlos Eduardo Marinelli PharmD [address] [place] [address] Pharmacist Internal Medicine 05/19/24 documented as of this encounter
--- OUTSIDE RECORDS SUMMARY | 2024-12-01 17:06 | XMS_ITS | Encounter Summary ---
Author Organization [employer] Address [address] [facility] [address] [place] [address] Care Team Providers Care Priest Name Role Phone Roma Sharma MD Primary Care Provider + Carlos Eduardo Marinelli PharmD Unavailable [phone] Reason for Visit * Reason Onset Date Comments Med Refill 09/23/2024 Encounter Details Date Type Department Care Team (Late st Contact Info) Description 09/23/2024 Refill [facility] [address] [place], [place] [phone] Roma Sharma MD [address] [place], [place] [phone] Type 2 diabetes mellitus with hyperglycemia, with long-term current use of insulin ([facility]) Social History Tobacco Use Types Packs/Day Years [...] Description 12/03/2024 10:30 AM EDT Medication Management [facility] [address] [place] [address] Carlos Eduardo Marinelli, PharmD [address] [place] [address] 12/17/2024 10:30 AM EDT Office Visit [facility] ADULT DENTAL [address] [place] [phone] Ronald Church DMD [address] [place] [address] 01/04/2025 11:45 AM EDT Office Visit [facility] [address] [place] [address] Roma Sharma MD [address] [place] [phone] 03/29/2025 10:00 AM EDT Office Visit [facility] ADULT DENT[facility] [address] [place] [address] Heather Victor documented as of this encounter [...] hyperglycemia, with long-term current use of insulin ([facility]) documented in this encounter Care Teams Priest Relationship Specialty Start Date End Date Roma Sharma MD [address] [place] [address] PCP - General Internal Medicine 04/06/24 Carlos Eduardo Marinelli PharmD [address] [place] [address] Pharmacist Internal Medicine 05/19/24 documented as of this encounter
--- OUTSIDE RECORDS SUMMARY | 2024-12-01 17:06 | XMS_ITS | Encounter Summary ---
Author Organization [employer] Address [address] [facility] 7t [place] [address] Care Team Providers Care Bank Cashier Name Role Phone Roma Sharma MD Primary Care Provider + Carlos Eduardo Marinelli PharmD Unavailable [phone] Reason for Visit * Reason Onset Date Comments Med Refill 09/30/2024 Encounter Details Date Type Department Care Team (Late st Contact Info) Description 09/30/2024 Refill [facility] [address] [place], [place] [phone] Roma Sharma MD [address] [place], [place] [phone] Type 2 diabetes mellitus with hyperglycemia, with long-term current use of insulin ([facility]) Social History Tobacco Use Types Packs/Day Years [...] Description 12/03/2024 10:30 AM EDT Medication Management [facility] [address] [place] [address] Carlos Eduardo Marinelli, PharmD [address] [place] [address] 12/17/2024 10:30 AM EDT Office Visit [facility] ADULT D[facility] [address] [place] [address] Ronald Church, TYRESE [address] [place] [address] 01/04/2025 11:45 AM EDT Office Visit [facility] [address] [place] [address] Roma Sharma MD [address] [place] [address] 03/29/2025 10:00 AM EDT Office Visit [facility]ULT [facility] [address] [place] [address] Heather Victor documented as of this encounter [...] hyperglycemia, with long-term current use of insulin ([facility]) documented in this encounter Care Teams Bank Cashier Relationship Specialty Start Date End Date Roma Sharma MD [address] [place] [address] PCP - General Internal Medicine 04/06/24 Carlos Eduardo Marinelli PharmD [address] [place] [phone] Pharmacist Internal Medicine 05/19/24 documented as of this encounter
--- OUTSIDE RECORDS SUMMARY | 2024-12-01 17:06 | XMS_ITS | Encounter Summary ---
Author Organization [employer] Address [address] [place] [address] Care Team Providers Care Machine Cutter Name Role Phone Roma Sharma MD Primary Care Provider + Carlos Eduardo Marinelli PharmD Unavailable [phone] Reason for Visit * Reason Onset Date Comments Med Refill 11/26/2024 Encounter Details Date Type Department Care Team (Late st Contact Info) Description 11/26/2024 Refill [facility] [address] [place], [place] [phone] Roma Sharma MD [address] [place], [place] [phone] Type 2 diabetes mellitus with hyperglycemia, with long-term current use of insulin ([facility]) Social History Tobacco Use Types Packs/Day [...] encounter Miscellaneous Notes * Telephone Encounter - Donna Larsen LPN - 11/26/2024 2:10 PM EST Last seen 11/05/24. * Telephone Encounter - Mushtaq Weber - 11/26/2024 2:08 PM EST TC from pt requesting medication refill. Medications needing refill : Continuous Glucose Sensor (FreeStyle Rob 3 Sensor) [facility] documented in this encounter Plan of Treatment Upcoming Encounters Date Type Department Care Team (Late st Contact Info) Description 12/03/2024 10:30 AM EDT Medication Management [facility] [address] [place] [address] Carlos Eduardo Marinelli, PharmD [address] [place] [address] 12/17/2024 10:30 AM EDT Office Visit [facility] ADULT DENTAL [address] [place], [place] [phone] SamiolyaRonald, DMD [address] [place] [address] 01/04/2025 11:45 AM EDT Office Visit [facility] [address] [place] [address] Roma Sharma MD [address] [place], [place] 03/29/2025 10:00 AM EDT Office Visit [facility] ADULT [facility]ENT[facility] [address] [place], [place] [phone] Heather Victor documented as of this encounter Goals Goal Patient Goal Type Associated Problems Recent Progress Patient-Stated? Author Blood Pressure < 140/90 Blood Pressure 140/80(2024 11:01 AM EST) No Carlos Eduardo Marinelli PharmD Hemoglobin A1c < 7 Result Component 7.1( 10:54 AM EST) No Carlos Eduardo Marinelli PharmSasha documented as of this encounter Visit Diagnoses Diagnosis Type 2 diabetes mellitus with hyperglycemia, with long-term current use of insulin ([facility]) documented in this encounter Additional Health Concerns Assessment Noted Time PHQ-9 Depression Total Score: 10 025 2:14 PM EST documented as of this encounter Care Teams Machine Cutter Relationship Specialty Start Date End Date Roma Sharma MD [address] [place] [address] [phone] PCP - General Internal Medicine 04/06/24 Carlos Eduardo Marinelli PharmD [address] [place] [address] [phone] Pharmacist Internal Medicine 05/19/24 documented as of this encounter
--- OUTSIDE RECORDS SUMMARY | 2024-12-01 17:06 | XMS_ITS | Encounter Summary ---
Author Organization [employer] Address [address] [place] [address] 7 [place] [address] Care Team Providers Care Conservation Agent Name Role Phone Roma Neil MD Primary Care Provider + Carlos Eduardo Marinelli PharmD Unavailable [phone] Reason for Visit * Reason Comments Follow-up Encounter Details Date Type Department Care Team (Late st Contact Info) Description 11/05/2024 11:30 AM EST Office Visit [facility] [address] [place], [place] [phone] Roma Neil MD [address] [place], [place] [phone] Primary hypertension (Primary Dx); Type 2 diabetes mellitus with hyperglycemia, with long-term current use of insulin (CMS/HCC); Moderate episode of recurrent major depressive disorder ([facility]/HCC) Social History Tobacco Use Types Packs/Day Years Used Date Smoking Tobacco: Never Smokeless Tobacco: Never Tobacco Cessation:Counseling Given: Not Answered Alcohol Use Standard Drinks/Week Comments Not Currently [...] the past 12 months, has t he [employer], gas, oil or water [employer] threatened to shut off services in your [...] PM EDT documented as of this encounter Last Filed Vital Signs Vital Sign Reading Time Taken Comments Blood Pressure 140/80 11/05/2024 11:01 AM EST Pulse 80 11/05/2024 10:45 AM EST Temperature 35.4 ??C (95.7 ??F) 11/05/2024 10:[address] Respiratory Rate - - Oxygen Saturation 100% 11/05/2024 10:45 AM EST Inhaled Oxygen Concentration - - Weight 80.3 kg (177 lb 2 oz) 11/05/2024 10:45 AM EST Height 180.3 cm (5' 11 ) 11/05/2024 10:45 AM EST Body Mass Index 24.7 11/05/2024 10:45 AM EST documented in this encounter Progress Notes * Roma Neil MD - 11/05/2024 11:30 AM EST SUBJECTIVE: Jamari Marinelli is a 69 y.o. year old male who presents for follow up DM/HTN. Denies recent illness, injury, or hospitalization. Patient was evaluated by therapist and was referred to psychotherapy. Sometimes he feels the urge to go back to substance abuse (EtOH and rec drugs) and seldomly has suicidal ideations of jumping off the building of 3rd floor apartment. He is also followed at [facility] program and was started on Jardiance 10 mg and Novolog was DC. He enjoys attending the program. BS at home 90s-100s, max 120. he has appointment for Colonoscopy Acute Concerns: Social History Social History Narrative Lives on alone on a third floor apartment/ no elevator access. Family (children) live close by. 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 HENT: Negative for congestion, ear pain, nosebleeds, rhinorrhea, sinus pressure, sore throat and trouble swallowing. Eyes: Negative for pain and discharge. Respiratory: Negative for cough, chest tightness and shortness of breath. Cardiovascular: Negative for chest pain, palpitations and leg swelling. Gastrointestinal: Negative for blood in stool, constipation, diarrhea and nausea. Endocrine: Negative for polydipsia and polyuria. Genitourinary: Negative for difficulty urinating, frequency and genital sores. Musculoskeletal: Negative for back pain and neck pain. Skin: Negative for rash. Allergic/Immunologic: Negative for environmental allergies. Neurological: Negative for dizziness, seizures, weakness, light-headedness and headaches. Hematological: Negative for adenopathy. Psychiatric/Behavioral: Positive for suicidal ideas. Negative for agitation, behavioral problems and self-injury. The patient is nervous/anxious. OBJECTIVE: Vitals: 11/05/24 1045 11/05/24 1101 BP: (!) 163/79 (!) 140/80 BP Location: Left arm Left arm Patient Position: Sitting Sitting BP Cuff Size: Adult Adult Pulse: 80 Temp: 95.7 ??F (35.4 ??C) TempSrc: Temporal SpO2: 100% Weight: 177 lb 2 oz (80.3 kg) Height: 5' 11 (1.803 m) Physical Exam Constitutional: Appearance: Normal appearance. HENT: Right Ear: Tympanic membrane and ear canal normal. Left Ear: Tympanic membrane and ear canal normal. Mouth/Throat: Mouth: Mucous membranes are moist. Pharynx: No oropharyngeal exudate or posterior oropharyngeal erythema. Eyes: Pupils: Pupils are equal, round, and reactive to light. Cardiovascular: Rate and Rhythm: Normal rate and regular rhythm. Heart sounds: No murmur heard. Pulmonary: Breath sounds: Normal breath sounds. No wheezing. Abdominal: General: Bowel sounds are normal. Palpations: Abdomen is soft. Tenderness: There is no abdominal tenderness. Musculoskeletal: General: No tenderness. Normal range of motion. Cervical back: Normal range of motion. No tenderness. Skin: General: Skin is warm. Neurological: General: No focal deficit present. Mental Status: He is alert and oriented to person, place, and time. Psychiatric: Mood and Affect: Mood normal. Office Visit on 11/05/2024 Component Date Value Ref Range Status Glucose Blood, POC 11/05/2024 291 (A) 60 - 200 mg/dL Final QC Media Lot # 11/05/2024 [id number] Final Lot# Expiration Date 11/05/2024 [id number] Final Hemoglobin A1C 11/05/2024 7.1 (A) 4.0 - 6.0 % Final QC Media Lot # 11/05/2024 [id number] Final Lot# Expiration Date 11/05/2024 [id number] Final Problem List Items Addressed This Visit Primary hypertension - Primary Controlled. Compliant w/meds Continue Losartan 50 mg. Counseled re low salt diet/increase moderate physical activity. Check home BP BIW and prn CP/HEARD/MEDEROS Type 2 diabetes mellitus with hyperglycemia, with long-term current use of insulin ([facility]) Controlled. A1c is at goal. Continue on Trulicity 0.75 mg + Lantus 35 units and will switch to Synjardy. Counseled re more frequent low calorie/carb meals. Check fgstk 2 X daily Encouraged physical activity as tolerated. FU in 3 months. Will refer patient to med boxes. Relevant Orders POCT Glucose (Completed) POCT HGB A1C (Completed) Moderate episode of recurrent major depressive disorder (CMS/HCC) Patient has SI, no current plan at this time. He is protected by strong family values. I gave him information on psychotherapist from [facility], so he can call and make an appointment. It is unclear if he has already been reached out or contacted a therapist. Will FU next week for safety check. Patient has crisis number and is able to reach out for safety. Start Valproic acid bid and FU with me in 6 weeks. Follow Up: Current Outpatient Medications on File Prior to Visit Medication Sig Dispense Refill acetaminophen (Tylenol) 500 MG tablet Take 1 tablet (500 mg) by mouth every 6 (six) hours if neededfor mild pain for up to 20 doses. 20 tablet 0 aspirin (Aspirin Adult Low Dose) 81 MG EC tablet Take 1 tablet by mouth daily 90 tablet 1 atorvastatin (Lipitor) 40 MG tablet Take 1 tablet (40 mg) by mouth Once per day. 90 tablet 1 Blood Pressure Monitoring (Blood Pressure Cuff) [facility] Use daily as prescribed 1 each 0 Continuous Glucose Sensor (FreeStyle Rob 3 Sensor) [facility] Apply 1 Device topically every 14 (fourteen) days. 2 each 5 dextran 70-hypromellose (artificial tears) 0.1-0.3 % ophthalmic solution Administer 1 drop into both eyes if needed in the morning, at noon, and at bedtime for dry eyes. 15 mL 6 Dulaglutide (Trulicity) 0.75 MG/0.5ML solution auto-injector Inject 0.5 mL (0.75 mg) under the skin1 (one) time per week. 2 mL 5 empagliflozin (Jardiance) 10 MG Take 1 tablet by mouth once daily 30 tablet 2 finasteride (Proscar) 5 MG tablet TAKE 1 TABLET BY MOUTH EVERY DAY FOR 90 DAYS ibuprofen 600 MG tablet Take 1 tablet (600 mg) by mouth every 6 (six) hours if needed for mild painfor up to 20 doses. 20 tablet 0 insulin glargine (Lantus SoloStar) 100 UNIT/ML pen Inject 35 units under the skin once daily 15 mL 11 insulin pen needle 29G x 5mm misc Use 4x/d with Lantus and humalog /Use as instructed 100 each 12 losartan (Cozaar) 50 MG tablet Take 1 tablet (50 mg) by mouth Once per day. 30 tablet 11 metFORMIN XR (Glucophage-XR) 750 MG 24 hr tablet Take 1 tablet (750 mg) by mouth with breakfast andwith evening meal. Do not crush, chew, or split. 60 tablet 11 tamsulosin (Flomax) 0.4 MG 24 hr capsule Take 0.4 mg by mouth Once per day. No current facility-administered medications on file prior to visit. I, Caty Arevalo, am serving as a scribe to document services personally performed by Dr. Roma Neil, based on the patient's response to questions by provider and provider's statements to me. documented in this encounter Miscellaneous Notes * Assessment & Plan Note - Caty Arevalo MA - 11/05/2024 1:45 PM EST Associated Problem(s): Moderate episode of recurrent major depressive disorder (CMS/HCC) Patient has SI, no current plan at this time. He is protected by strong family values. I gave him information on psychotherapist from [facility], so he can call and make an appointment. It is unclear if he has already been reached out or contacted a therapist. Will FU next week for safety check. Patient has crisis number and is able to reach out for safety. Start Valproic acid bid and FU with me in 6 weeks. * Assessment & Plan Note - Caty Arevalo MA - 11/05/2024 1:38 PM EST Associated Problem(s): Type 2 diabetes mellitus with hyperglycemia, with long- term current use of insulin (CMS/HCC) Controlled. A1c is at goal. Continue on Trulicity 0.75 mg + Lantus 35 units and will switch to Synjardy. Counseled re more frequent low calorie/carb meals. Check fgstk 2 X daily Encouraged physical activity as tolerated. FU in 3 months. Will refer patient to med boxes. * Assessment & Plan Note - Caty Arevalo MA - 11/05/2024 1:34 PM EST Associated Problem(s): Primary hypertension Controlled. Compliant w/meds Continue Losartan 50 mg. Counseled re low salt diet/increase moderate physical activity. Check home BP BIW and prn CP/HEARD/MEDEROS * Addendum Note - Roma Neil MD - 11/05/2024 11:30 AM ESTAddended by: ROMA NEIL on: 11/11/2024 02:03 PM Modules accepted: Orders documented in this encounter Plan of Treatment Upcoming Encounters Date Type Department Care Team (Late st Contact Info) Description 12/03/2024 10:30 AM EDT Medication Management [facility] [address] [place] [phone] Carlos Eduardo Marinelli, PharmD [address] [place] [address] 12/17/2024 10:30 AM EDT Office Visit [facility] ADULT DENTAL [address] [place] [address] Ronald Church, TYRESE [address] [place] [address] 01/04/2025 11:45 AM EDT Office Visit [facility] [address] [place] [phone] Roma Neil MD [address] [facility] [place] [address] 03/29/2025 10:00 AM EDT Office Visit [facility] [address] [facility] [place] [address] Heather Victor documented as of this encounter Goals Goal Patient Goal Type Associated Problems Recent Progress Patient-Stated? Author Blood Pressure < 140/90 Blood Pressure 140/80(2024 11:01 AM EST) No Carlos Eduardo Marinelli, PharmSasha Hemoglobin A1c < 7 Result Component 7.1( 10:54 AM EST) No Carlos Eduardo Marinelli PharmD documented as of this encounter Procedures Procedure Name Priority Date/Time Associated Diagnosis Comments POCT GLYCATED HEMOGLOBIN, TOTAL Routine 11/05/2024 10:54 AM EST Type 2 diabetes mellitus with hyperglycemia, with long-term current use of insulin ([facility]) POCT GLUCOSE Routine 11/05/2024 10:51 AM EST Type 2 diabetes mellitus with hyperglycemia, with long-term current use of insulin ([facility]) documented in this encounter Results * (ABNORMAL) POCT HGB A1C (11/05/2024 10:54 AM EST) Pathologist [facility] Hemoglobin A1C 7.1(A) 4.0 - 6.0 % QC Media Lot # [id number] Lot# Expiration Date , Blood 11/05/2024 10:5 4 AM EST Roma Neil MD POINT OF CARE TEST ENTER /EDIT ORDERABLES Final Result * (ABNORMAL) POCT Glucose (11/05/2024 10:51 AM EST) Pathologist [facility] Glucose Blood, POC 291(A) 60 - 200 mg/dL QC Media Lot # [id number] Lot# Expiration Date 6172,[id number] Blood Capillary blood specimen / Unknown 11/05/2024 10:51 AM EST Roma Neil MD POINT OF CARE TEST ENTER /EDIT ORDERABLES Final Result documented in this encounter Visit Diagnoses Diagnosis Primary hypertension- Primary Unspecified essential hypertension Type 2 diabetes mellitus with hyperglycemia, with long-term current use of insulin (CMS/HCC) Moderate episode of recurrent major depressive disorder (CMS/HCC) documented in this encounter Additional Health Concerns Assessment Noted Time PHQ-9 Depression Total Score: 17 025 10:25 AM EST documented as of this encounter Care Teams Conservation Agent Relationship Specialty Start Date End Date Roma Neil MD [address] [place] [address] PCP - General Internal Medicine 04/06/24 Carlos Eduardo Marinelli, Anant [address] [place] [address] Pharmacist Internal Medicine 05/19/24 documented as of this encounter
--- OUTSIDE RECORDS SUMMARY | 2024-12-01 17:06 | XMS_ITS | Encounter Summary ---
Author Organization [employer] Address [address] [place] [address] Care Team Providers Care Assembling Machine Operator Name Role Phone Roma Sharma MD Primary Care Provider + Carlos Eduardo Marinelli PharmD Unavailable [phone] Encounter Details Date Type Department Care Team (Late st Contact Info) Description 11/26/2024 10:30 AM EST Office Visit [facility] ADULT DENTAL [address] [place], [place] [phone] Sixto Blackwood, SHAS [address] [place], [place] [phone] Edentulous maxilla (Primary Dx) Social History Tobacco Use Types Packs/Day Years [...] PM EDT documented as of this encounter Progress Notes * Sixto Blackwood DDS - 11/26/2024 10:30 AM EST Pt presents for extractions, pt prefers to speed up denture in the first phase, since he would be traveling to [facility]. Molder Helper Diane Blackwood documented in this encounter Plan of Treatment Upcoming Encounters Date Type Department Care Team (Late st Contact Info) Description 12/03/2024 10:30 AM EDT Medication Management [facility] [address] [place] [phone] Carlos Eduardo Marinelli, PharmD [address] [place] [address] 12/17/2024 10:30 AM EDT Office Visit [facility] ADULT DENTAL [address] [place] [phone] Ronald Church, TYRESE [address] [place] [address] 01/04/2025 11:45 AM EDT Office Visit [facility] [address] [place] [address] Roma Sharma MD [address] [place] [address] 03/29/2025 10:00 AM EDT Office Visit [facility] ADULT DENTAL [address] [place] [address] Heather Victor documented as of this encounter Goals Goal Patient Goal Type Associated Problems Recent Progress Patient-Stated? Author Blood Pressure < 140/90 Blood Pressure 140/80(2024 11:01 AM EST) No Carlos Eduardo Marinelli PharmD Hemoglobin A1c < 7 Result Component 7.1( 10:54 AM EST) No Carlos Eduardo Marinelli PharmD documented as of this encounter Procedures Procedure Name Priority Date/Time Associated Diagnosis Comments NO CHARGE VISIT Routine 11/26/2024 10:30 AM EST documented in this encounter Visit Diagnoses Diagnosis Edentulous maxilla- Primary documented in this encounter Additional Health Concerns Assessment Noted Time PHQ-9 Depression Total Score: 10 025 2:14 PM EST documented as of this encounter Care Teams Assembling Machine Operator Relationship Specialty Start Date End Date Roma Sharma MD [address] [place] [address] PCP - General Internal Medicine 04/06/24 Carlos Eduardo Marinelli PharmD [address] [place] [phone] Pharmacist Internal Medicine 05/19/24 documented as of this encounter
--- OUTSIDE RECORDS SUMMARY | 2024-12-01 17:06 | XMS_ITS | Encounter Summary ---
Author Organization [employer] Address [address] [place] [address] 7t [place] [address] Care Team Providers Care Electronics Engineering Technologist Name Role Phone Roma Sharma MD Primary Care Provider + Carlos Eduardo Marinelli PharmD Unavailable [phone] Reason for Visit * Reason Comments Med Refill Encounter Details Date Type Department Care Team (Late st Contact Info) Description 11/17/2024 Refill [facility] [address] [place], [place] [phone] Carlos Eduardo Marinelli, PharmD [address] [place], [place] [phone] Type 2 diabetes mellitus with hyperglycemia, with long-term current use of insulin ([facility]) Social History Tobacco [...] encounter Miscellaneous Notes * Telephone Encounter - Carlos Eduardo Marinelli PharmD - 11/18/2024 3:10 PM EST Pharmacist will Renew Jardiance 10 mg po daily. CDTM FU scheduled 11/29/2024. Last PCP visit (11/05/2024) noted change to Synjardy. Synjardy unavailable with current doses of Jardiance and metformin.Possible change will be considered at next visit. documented in this encounter Plan of Treatment Upcoming Encounters Date Type Department Care Team (Late st Contact Info) Description 12/03/2024 10:30 AM EDT Medication Management [facility] [address] [place] [address] Carlos Eduardo Marinelli, Anant [address] [place] [address] 12/17/2024 10:30 AM EDT Office Visit [facility] ADULT DENTAL [address] [place] [address] Ronald Church, DMD [address] [place] [address] 01/04/2025 11:45 AM EDT Office Visit [facility] [address] [place] [address] Roma Sharma MD [address] [place], [place] 03/29/2025 10:00 AM EDT Office Visit [facility] [address] [place] [address] Heather Victor documented as of this encounter Goals Goal Patient Goal Type Associated Problems Recent Progress Patient-Stated? Author Blood Pressure < 140/90 Blood Pressure 140/80(2024 11:01 AM EST) No Carlos Eduardo Marinelli PharmD Hemoglobin A1c < 7 Result Component 7.1( 10:54 AM EST) No Carlos Eduadro Marinelli PharmD documented as of this encounter Visit Diagnoses Diagnosis Type 2 diabetes mellitus with hyperglycemia, with long-term current use of insulin ([facility]) documented in this encounter Additional Health Concerns Assessment Noted Time PHQ-9 Depression Total Score: 10 025 2:14 PM EST documented as of this encounter Care Teams Electronics Engineering Technologist Relationship Specialty Start Date End Date Roma Sharma MD [address] [place] [phone] PCP - General Internal Medicine 04/06/24 Carlos Eduardo Marinelli PharmD [address] [place] [phone] Pharmacist Internal Medicine 05/19/24 documented as of this encounter
--- OUTSIDE RECORDS SUMMARY | 2024-12-01 17:06 | XMS_ITS | Encounter Summary ---
Author Organization [employer] Address [address] [place] [address] Care Team Providers Care Director Child Name Role Phone Roma Sharma MD Primary Care Provider + Carlos Eduardo Marinelli PharmD Unavailable [phone] Encounter Details Date Type Department Care Team (Latest Contact Info) Description 11/05/2024 Travel Social History Tobacco Use Types Packs/Day [...] Description 12/03/2024 10:30 AM EDT Medication Management [facility] [address] [place] [phone] Carlos Eduardo Marinelli, Anant [address] [place] [address] 12/17/2024 10:30 AM EDT Office Visit [facility] ADULT DENTAL [address] [place] [address] Ronald Church, TYRESE [address] [place] [address] 01/04/2025 11:45 AM EDT Office Visit [facility] [address] [place] [phone] Roma Sharma MD 230 [place] [address] 03/29/2025 10:00 AM EDT Office Visit [facility] ADULT DENTAL [address] [place] [address] Heather Victor documented as of this encounter [...] documented as of this encounter Care Teams Director Child Relationship Specialty Start Date End Date Roma Sharma MD [address] [place] [phone] PCP - General Internal Medicine 04/06/24 Carlos Eduardo Marinelli, Anant [address] [place] [phone] Pharmacist Internal Medicine 05/19/24 documented as of this encounter
--- OUTSIDE RECORDS SUMMARY | 2024-12-01 17:06 | XMS_ITS | Encounter Summary ---
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 [address] [place] [phone] Carlos Eduardo Marinelli, PharmD [address] [place] [phone] 12/17/2024 10:30 AM EDT Office Visit [facility] ADULT DENTAL [address] [place] [phone] Ronald Church, TYRESE [address] [place] [address] 01/04/2025 11:45 AM EDT Office Visit [facility] MEDICINE [address] [place] [phone] Roma Sharma MD [address] [place] [phone] 03/29/2025 10:00 AM EDT Office Visit [facility] ADULT DENTAL [address] [place] [phone] Heather Victor documented as of this encounter Goals Goal Patient Goal Type Associated Problems Recent Progress Patient-Stated? 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
--- OUTSIDE RECORDS SUMMARY | 2024-12-01 17:07 | XMS_ITS | Clinical Summary ---
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 insulin pen needle 29G x 5mm misc Use 4x/d with Lantus and humalog /Use as instructed 100 each 12 04/22/20 24 2024 Active Blood Pressure Monitoring (Blood Pressure Cuff) misc Use daily as prescribed 1 each 04/22/20 24 Active metFORMIN XR (Glucophage-XR) 750 MG 24 hr tablet Take 1 tablet (750 mg) by mouth with breakfast and with evening meal. Do not crush, chew, or split. 60 tablet 06/15/20 24 2024 Active acetaminophen (Tylenol) 500 MG tabletIndication s:Non-restorable tooth Take 1 tablet (500 mg) by mouth every 6 (six) hours if needed for mild pain for up to 20 doses. 20 tablet 06/24/20 24 Active ibuprofen 600 MG tabletIndication s:Non-restorable tooth Take 1 tablet (600 mg) by mouth every 6 (six) hours if needed for mild pain for up to 20 doses. 20 tablet 06/24/20 24 Active atorvastatin (Lipitor) 40 MG tabletIndication s:Uncontrolled type 2 diabetes mellitus with hyperglycemia (CMS/HCC) Take 1 tablet (40 mg) by mouth Once per day. 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 15 mL 6 07/27/20 24 2024 Active losartan (Cozaar) 50 MG tablet Take 1 tablet (50 mg) by mouth Once per day. 30 tablet 11 07/30/20 24 2024 Active Dulaglutide (Trulicity) 0.75 MG/0.5ML solution auto-injectorInd ications:Type 2 diabetes mellitus with hyperglycemia, with long-term current use of insulin ([facility]) Inject 0.5 mL (0.75 mg) under the skin 1 (one) time per week. 2 mL 5 08/04/20 24 Active insulin glargine (Lantus SoloStar) 100 UNIT/ML penIndications:T ype 2 diabetes mellitus with hyperglycemia, with long-term current use of insulin ([facility]) Inject 35 units under the skin once daily 15 mL 11 08/06/20 24 Active finasteride (Proscar) 5 MG tablet TAKE 1 TABLET BY MOUTH EVERY DAY FOR 90 DAYS 08/11/20 24 Active tamsulosin (Flomax) 0.4 MG 24 hr capsule Take 0.4 mg by mouth Once per day. 09/18/20 23 Active divalproex (Depakote ER) 250 MG 24 hr tablet Take 1 tablet (250 mg) by mouth 2 times daily. Do not crush, chew, or split. 60 tablet 11 11/11/19 25 2025 Active empagliflozin (Jardiance) 10 MGIndications:Ty pe 2 diabetes mellitus with hyperglycemia, with long-term current use of insulin ([facility]) TAKE 1 TABLET BY MOUTH EVERY DAY 30 tablet 2 11/18/19 25 Active Continuous Glucose Sensor (FreeStyle Rob 3 Sensor) miscIndications: Type 2 diabetes mellitus with hyperglycemia, with long-term current use of insulin ([facility]) Apply 1 Device topically every 14 (fourteen) days. 2 each 5 11/27/19 25 Active Continuous Glucose Sensor (FreeStyle Rob 3 Sensor) miscIndications: Type 2 diabetes mellitus with hyperglycemia, with long-term current use of insulin (CMS/HCC) Apply 1 Device topically every 14 (fourteen) days. 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 History of substance use 10/04/2024 RHONDA (generalized anxiety disorder) 10/04/2024 Assessment & Plan (11/15/2024 9:38 AM EST): During IBH Consult Jamari presenting with depressed mood, Tearful, crying spells , hopelessness, irritable mood, loss of interests/pleasure , sense of isolation/loneliness , changes in sleep difficulty falling asleep, psychomotor retardation, worthlessness, indecisiveness, intrusive thoughts with no plan, nor-intent and excessive worry/anxiety, difficulty controlling worry, anxiety/worry associated to easily fatigued , difficulty concentrating and/or mind going blank , irritability, muscle tension , and sleep disturbance difficulty falling asleep, Fear , and sense of dread ; for a period of 18+ mo, for most or all symptoms in the context of , illness or family illness, and recent move. Jamari reported being connected with OP services which is helping in managing his sxs (next appt scheduled for 11/17 per patient's report). Jamari has identified his medical condition, unfinished business with loved ones who and relocation from [place] to [place] a year ago as triggers. Jamari finds support in the community. He attends a day program [employer] and also has a [employer]. Pt reports receiving support from his daughter and grandchildren who are also identified as protective factors. clinician engaged patient with active/reflective listening. Reviewed and assessed for risk, current stressors and protective factors using open-ended questions. Pt will continue OP services with current therapist. clinician will provide additional support as needed (pt scheduled on 11/29 for f/u appt). Pt not interested in starting medication as part of treatment. Moderate episode of recurrent major depressive d isorder 07/30/2024 Assessment & Plan (11/29/2024 11:44 AM EDT): During IBH Consult Jamari presenting with depressed mood, Tearful, hopelessness, loss of interests/pleasure , change in appetite or weight overeating, changes in sleep sleeping too much, psychomotor retardation, fatigue/loss of energy, worthlessness, inappropriate/excessive guilt , difficulty concentrating, indecisiveness, passive SI with no plan, nor-intent, long preoccupation with memories of , feelings of guiltiness, emotional pain associated with his family loss; for a period of 18+ mo, for most or all symptoms in the context of , illness or family illness, and housing. Jamari presented with depressive mood associated with his housing situation and medical condition. He lives in a third floor apartment in [place] and is looking to move to a lower floor near his adult children in [place]. Pt reports having diabetes as a chronic disease. The passing of his mother and sister years ago is a trigger for Jamari and leads to his depressive mood. Pt reports being able to manage and cope on his own. He attends a Day Program in [facility] Friday through Friday and reports having social support from the community, his [employer] MEMBER and his family. clinician engaged patient with active/reflective listening. Reviewed and assessed for risk, current stressors and protective factors using open-ended questions. Pt was connected with OP services but stopped attending session about two months ago. He declined OP referral and will contact clinician if he changes his mind regarding MH services. Provided information for [facility] centers, [facility] help line and [facility]. clinician will provide additional support during next medical appointment if needed. Assessment & Plan (11/15/2024 9:37 AM EST): During IBH Consult Jamari presenting with depressed mood, Tearful, crying spells , hopelessness, irritable mood, loss of interests/pleasure , sense of isolation/loneliness , changes in sleep difficulty falling asleep, psychomotor retardation, worthlessness, indecisiveness, intrusive thoughts with no plan, nor-intent and excessive worry/anxiety, difficulty controlling worry, anxiety/worry associated to easily fatigued , difficulty concentrating and/or mind going blank , irritability, muscle tension , and sleep disturbance difficulty falling asleep, Fear , and sense of dread ; for a period of 18+ mo, for most or all symptoms in the context of , illness or family illness, and recent move. Jamari reported being connected with OP services which is helping in managing his sxs (next appt scheduled for 11/17 per patient's report). Jamari has identified his medical condition, unfinished business with loved ones who and relocation from [place] to [place] a year ago as triggers. Jamari finds support in the community. He attends a day program [employer] and also has a [employer] MEMBER. Pt reports receiving support from his daughter and grandchildren who are also identified as protective factors. clinician engaged patient with active/reflective listening. Reviewed and assessed for risk, current stressors and protective factors using open-ended questions. Pt will continue OP services with current therapist. clinician will provide additional support as needed (pt scheduled on 11/29 for f/u appt). Pt not interested in starting medication as part of treatment. Assessment & Plan (11/11/2024 1:57 PM EST): Patient has SI, no current plan at this time. He is protected by strong family values. I gave him information on psychotherapist from [facility], so he can call and make an appointment. It is unclear if he has already been reached out or contacted a therapist. Will FU next week for safety check. Patient has crisis number and is able to reach out for safety. Start Valproic acid bid and FU with me in 6 weeks. Assessment & Plan (09/24/2024 9:30 PM EST): Its treating it with ETOH and other substances. Agreed to referral. He's able to reach out for safety to friends and relatives. He's aware of crisis number, thru friends. Advised to continue cutting down on SA. Non-restorable tooth 06/24/2024 Screening for colorectal cancer 06/15/2024 Assessment & Plan (06/15/2024 2:38 PM EDT): - pt agreed to GI referral for colonscopy Lower urinary tract symptoms (LUTS) 06/15/2024 Assessment & Plan (06/15/2024 2:36 PM EDT): - pt has history of urinary retention in the past, and family history of prostate cancer - will refer to urology Preventative health care 06/15/2024 Assessment & Plan (06/15/2024 2:39 PM EDT): Discussed with patient re increase fresh fruit and vegetable intake. Counseled re moderate exercise as tolerated, up to 20 min/d Patient feels safe at home. Eye exam: overdue, pt has upcoming appointment on 07/27 CRC screen: never done, refer to GI Lipids/FBS: up to date, next one due February 2025 Vaccinations: overdue, will start with influenza, T-dap, and PCV 20 today, advised to have Covid booster at earliest convenience. Needs Hep-B series + RSV+ Zoster which he can also have at nearest pharmacy or f/u with me at next visit Dental visit: overdue, pt awaiting appointment with dentist next month Encounter for immunization 06/15/2024 Primary osteoarthritis of both knees 04/22/2024 Assessment & Plan (06/15/2024 2:37 PM EDT): - advised regarding weight reduction, increased exercise, avoiding going up and down the stairs - he will start going to an [facility] program to increase physical activity Assessment & Plan (04/22/2024 3:17 PM EDT): Order Xrays of both knees, refer to orthopedics. Primary hypertension 04/22/2024 Assessment & Plan (11/05/2024 1:34 PM EST): Controlled. Compliant w/meds Continue Losartan 50 mg. Counseled re low salt diet/increase moderate physical activity. Check home BP BIW and prn CP/HEARD/MEDEROS Assessment & Plan (09/24/2024 9:25 PM EST): Uncontrolled, I will Increase losartan to 50 mg and fu in 6-8w Counseled re low salt diet/increase moderate physical activity. 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 Vitamin D deficiency 04/22/2024 Assessment & Plan (04/22/2024 3:25 PM EDT): Vit D levels is fairly normal at this time, we'll restart Vit at upcoming appts so that we can closely fu DM med tolerance first. Type 2 diabetes mellitus wit h hyperglycemia, with long-term current use of insulin 04/06/2024 Assessment & Plan (11/05/2024 1:39 PM EST): Controlled. A1c is at goal. Continue on Trulicity 0.75 mg + Lantus 35 units and will switch to Synjardy. Counseled re more frequent low calorie/carb meals. Check fgstk 2 X daily Encouraged physical activity as tolerated. FU in 3 months. Will refer patient to med boxes. Assessment & Plan (09/24/2024 9:27 PM EST): Uncontrolled, I will Increase Lantus to 50u/hs FU in 6-8w, may start GLP1 agonist if A1c not at goal. Counseled re more frequent low calorie/carb meals, hopefully he'll be able to move to his own apartment soon. Check fgstk 2x daily Encouraged physical activity as tolerated. Assessment & Plan (06/15/2024 2:38 PM EDT): - slightly better controlled, will increase Metformin to 750 BID and f/u in 6 weeks - continue Novolog sliding scale + Lantus 40 units - agreed to influenza IZ Assessment & Plan (04/22/2024 3:19 PM EDT): Uncontrolled. Increase Lantus to 45u, add Humalog sliding scale AC meals and fu with me in 4w, I will adjust sliding scale as needed, patient has [employer] 3 system Add Metformin XR 750/d, will monitor GFR in 4-5w Refer to CDTM clinic and nutrition DTaP. Assessment & Plan (04/06/2024 4:29 PM EDT): Uncontrolled. Recently back on meds, not fully compliant Continue on lantus 40u/d, order labs and fu with me in 3-4w to adjust meds Counseled re more frequent low calorie/carb meals, he has info re local pantry in [place], refer to [facility]. Check fgstk 2x daily Encouraged physical activity as tolerated. Mixed hyperlipidemia 04/06/2024 Assessment & Plan (04/22/2024 3:24 PM EDT): LDL is at goal at this time, we'll restart Lipitor at upcoming appts so that we can closely fu DM med tolerance first. Recommended moderate amount of exercise and increase consumption of fruit, vegetables, fish and high fiber foods. Should decrease consumption of highly saturated fats or trans fats. Assessment & Plan (04/06/2024 4:31 PM EDT): Hx statin rx, currently off meds Check lipids, LDL goal is 70 Fu with me with labs Closed fracture of right low er extremity with routine healing 04/06/2024 Assessment & Plan (06/15/2024 2:16 PM EDT): - resolved, has residual right foot pain, should use diabetic shoes and inserts Assessment & Plan (04/22/2024 3:16 PM EDT): FU with ortho Dr Minor May need cane for ambulation, he wants to fu with PT there. Assessment & Plan (04/06/2024 4:28 PM EDT): Continue air cast and fu with orthopedics Refer to Dr Minor Alcohol use disorder, mild, in early remission, abuse 04/06/2024 Assessment & Plan (09/24/2024 9:29 PM EST): I congratulated him for cutting down significantly, encouraged him to keep doing it. He declined referral to AUD program or even start meds like Campral. He wants to do it a pulso We discussed re community resources including [place] and AUD program here at [facility], AA meetings and reach out to recovery coaches. Assessment & Plan (04/06/2024 4:32 PM EDT): Has cutdown significantly D/w him re options to go to AA, AUD program or local groups /meetings including [employer] [facility] , he declined Advised to quit ETOH, check HIV, Hepatitis profile. Limited access to food 04/06/2024 Assessment & Plan (04/06/2024 4:32 PM EDT): Refer to [facility] Encounters * This document contains information received from the source organization and may not represent a complete record from that organization. Date Type Department Care Team Description 11/29/2024 Travel 11/26/2024 10:30 AM EST Office Visit [facility] ADULT DENTAL [address] [place] [address] Sixto Blackwood DDS Edentulous maxilla (Primary Dx) 11/26/2024 Refill [facility] MEDICINE [address] [place] [address] Roma Sharma MD Type 2 diabetes mellitus with hyperglycemia, with long-term current use of insulin ([facility]) 11/26/2024 Telephone [facility] [address] [place] [address] Roma Sharma MD Medication Question 11/17/2024 Refill [facility] [address] [place] [address] Carlos Eduardo Marinelli, Anant Type 2 diabetes mellitus with hyperglycemia, with long-term current use of insulin ([facility]) 11/05/2024 11:30 AM EST Office Visit [facility] [address] [place] [address] Roma Sharma MD Primary hypertension (Primary Dx); Type 2 diabetes mellitus with hyperglycemia, with long-term current use of insulin ([facility]); Moderate episode of recurrent major depressive disorder ([facility]) 11/05/2024 Travel 11/04/2024 Telephone [facility] [address] [place] [address] Roma Sharma MD Chart prep 10/18/2024 Telephone [facility] [address] [place] [address] Heather Victor 10/05/2024 Orders Only GENERIC EXTERNAL DATA DEPARTMENT Provider, Generic External Data 10/04/2024 Patient Outreach [facility] [address] [place] [address] Desmond Okeefe [facility] 10/04/2024 Refill [facility] [address] [place] [address] Roma Sharma MD Type 2 diabetes mellitus with hyperglycemia, with long-term current use of insulin ([facility]) 09/30/2024 Refill [facility] OPTOMETRY [address] [place] [address] Pamela Dubois, OD 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 09/30/2024 Refill [facility] [address] [place] [address] Roma Sharma MD Type 2 diabetes mellitus with hyperglycemia, with long-term current use of insulin ([facility]) 09/29/2024 Orders Only [facility] External Provider, [facility] 09/28/2024 10:00 AM EST Office Visit [facility] AD[facility] [address] [place] [address] Heather Victor Dental calculus (Primary Dx); Dental plaque 09/23/2024 Refill [facility] [address] [place] [address] Roma Sharma MD Type 2 diabetes mellitus with hyperglycemia, with long-term current use of insulin ([facility]) from Last 3 Months Immunizations Name Administration Dates Next Due HepB-CpG 08/25/2024,06/28/2024 Influenza, High Dose Seasonal, Preservative Free 06/15/2024 Pfizer Covid-19 Vaccine 12+ 06/17/2024 Pneumococcal Conjugate PCV 20 06/28/2024 Tdap 06/15/2024 Family History Medical History Relation Name Comments Prostate cancer Brother Diabetes type II Mother Relation Name Status Comments Brother Father Mother Social History Tobacco Use Types Packs/Day Years [...] Orientation Straight 01/26/2024 12 :32 PM EDT Last Filed Vital Signs Vital Sign Reading Time Taken Comments Blood Pressure 140/80 11/05/2024 11:01 AM EST Pulse 80 11/05/2024 10:45 AM EST Temperature 35.4 ??C (95.7 ??F) 11/05/2024 10:[address] Respiratory Rate 16 04/06/2024 1:21 PM EDT Oxygen Saturation 100% 11/05/2024 10:45 AM EST Inhaled Oxygen Concentration - - Weight 80.3 kg (177 lb 2 oz) 11/05/2024 10:45 AM EST Height 180.3 cm (5' 11 ) 11/05/2024 10:45 AM EST Body Mass Index 24.7 11/05/2024 10:45 AM EST Plan of Treatment Upcoming Encounters Date Type Department Care Team (Late st Contact Info) Description 12/03/2024 10:30 AM EDT Medication Management [facility] [address] [place] [phone] Carlos Eduardo Marinelli, PharmD [address] [place] [id number] 12/17/2024 10:30 AM EDT Office Visit [facility] [address] [place] [phone] Ronald Church, TYRESE [address] [place] [address] 01/04/2025 11:45 AM EDT Office Visit [facility] [address] [place] [id number] Roma Sharma MD [address] [place] [address] 03/29/2025 10:00 AM EDT Office Visit [facility] [address] [place] [address] Heather Victor Health Maintenance Due Date Last Done Comments CT Colonography 1956 Colonoscopy 1956 Colorectal Cancer Screening 1956 Dental X-Ray: Bitewings 1956 FIT DNA/Cologuard 1956 FIT 1956 FOBT 1956 Sigmoidoscopy 1956 Zoster Vaccines (1 of 2) 2006 RSV Patients and Patients Aged 60 years or older (1 - Risk 60-74 years 1-dose series) 2016 Dental Oral Exam 08/15/2024 02/12/2024 Diabetes: Hemoglobin A1C 02/02/2025 025, 07/30/2024, 04/06/2024 Dental Prophylaxis 03/29/2025 09/28/2024, 04/20/2024 Alcohol/Substance Use Screening 04/06/2025 04/06/2024 Diabetes: Foot Exam 04/06/2025 04/06/2024, 04/06/2024, 04/06/2024, Additional history exists SDOH Screening 04/06/2025 04/06/2024 Diabetes: Urine Protein Screening 04/09/2025 04/09/2024 Lipid Panel 04/09/2025 04/09/2024 Depression Monitoring (PHQ-9) 06/01/2025 11/29/2024, 11/29/2024 Tobacco Screening 11/26/2025 11/26/2024 Depression Screening 11/29/2025 11/29/2024, 11/30/19 25 Eye Exam 07/27/2026 07/27/2024, 01/2024, 07/27/2024, Additional history exists Dental X-Ray: Full Mouth 02/12/2027 02/12/2024 DTaP/Tdap/Td Vaccines (3 - Td or Tdap) 06/15/2034 06/15/2024, 07/16/2015 Hepatitis C Screening Completed 04/09/2024 Influenza Vaccine Completed 06/15/2024, , 06/25/2019, Additional history exists COVID-19 Vaccine Completed 06/17/2024 Pneumococcal Vaccine: 50+ Years Completed 06/28/2024 Hepatitis B Vaccines Completed 08/25/2024, 06/28/20 HIB Vaccines Aged Out No longer eligi ble based on patient's age to complete this topic HPV Vaccines Aged Out No longer eligi ble based on patient's age to complete this topic Hepatitis A Vaccines Aged Out No long er eligible based on patient's age to complete this topic IPV Vaccines Aged Out No longer eligi ble based on patient's age to complete this topic Meningococcal Vaccine Aged Out No eve dayron eligible based on patient's age to complete this topic RSV under 20 months Aged Out No longe r eligible based on patient's age to complete this topic Rotavirus Vaccines Aged Out No longer eligible based on patient's age to complete this topic Goals Goal Patient Goal Type Associated Problems Recent Progress Patient-Stated? Author Blood Pressure < 140/90 Blood Pressure 140/80(2024 11:01 AM EST) No Carlos Eduardo Marinelli PharmD Hemoglobin A1c < 7 Result Component 7.1( 10:54 AM EST) No Carlos Eduardo Marinelli PharmD Procedures Procedure Name Priority Date/Time Associated Diagnosis Comments NO CHARGE VISIT Routine 11/26/2024 10:30 AM EST POCT GLYCATED HEMOGLOBIN, TOTAL Routine 11/05/2024 10:54 AM EST Type 2 diabetes mellitus with hyperglycemia, with long-term current use of insulin ([facility]) POCT GLUCOSE Routine 11/05/2024 10:51 AM EST Type 2 diabetes mellitus with hyperglycemia, with long-term current use of insulin ([facility]) PSA, TOTAL Routine 10/05/2024 1:43 PM EST US BLADDER Routine 09/29/2024 11:32 AM EST TOPICAL APPLICATION OF FLUORIDE VARNISH Routine 09/28/2024 10:00 AM EST ORAL HYGIENE INSTRUCTIONS Routine 09/28/2024 10:00 AM EST Dental calculus Dental plaque CASE PRESENTATION, DETAILED AND EXTENSIVE TREATMENT PLANNING Routine 09/28/2024 10:00 AM EST PROPHYLAXIS - ADULT Routine 09/28/2024 1 0:00 AM EST Dental calculus Dental plaque HEPATITIS PANEL, GENERAL Routine 04/09/2024 9:20 AM EDT Type 2 diabetes mellitus with hyperglycemia, with long-term current use of insulin ([facility]) ALBUMIN, RANDOM URINE W/CREATININE Routine 04/09/2024 9:20 AM EDT Type 2 diabetes mellitus with hyperglycemia, with long-term current use of insulin (CMS/[facility]) LIPID PANEL WITH REFLEX TO DIRECT LDL Routine 04/09/2024 9:10 AM EDT Type 2 diabetes mellitus with hyperglycemia, with long-term current use of insulin (CMS/[facility]) PANORAMIC RADIOGRAPHIC IMAGE Routine 02/12/2024 10:00 AM EDT COMPREHENSIVE ORAL EVALUATION - NEW OR ESTABLISHED PATIENT Routine 02/12/2024 10:00 AM EDT from Last 3 Months or Most Recently Relevant to Health Maintenance Results * (ABNORMAL) POCT HGB A1C (11/05/2024 10:54 AM EST) Hemoglobin A1C 7.1(A) 4.0 - 6.0 % QC Media Lot # [id number] Lot# Expiration Date Blood 11/05/2024 10:5 4 AM EST Roma Sharma MD POINT OF CARE TEST ENTER /EDIT ORDERABLES Final Result * (ABNORMAL) POCT Glucose (11/05/2024 10:51 AM EST) Pathologist [facility] Glucose Blood, POC 291(A) 60 - 200 mg/dL QC Media Lot # [id number] Lot# Expiration Date ,025 Blood Capillary blood specimen / Unknown 11/05/2024 10:51 AM EST Roma Sharma MD POINT OF CARE TEST ENTER /EDIT ORDERABLES Final Result * PSA,Total (10/05/2024 1:43 PM EST) Prostate Specific Antigen 0.43 <0.05 - 4.0 ng/mL [facility] Comment:PSA methodology: Sonido Butler i ChemiluminescentMicroparticle Immunoassay (CMIA) 10/05/2024 1:43 PM EST 10/05/2024 1:43 PM EST us Generic External Data Provider LAB BLOOD ORDERAB LES Final Result [facility] [address] [place] [address] [phone] * US BLADDER (09/29/2024 11:32 AM EST) Anatomical Region Laterality Modality Abdomen Ultrasound 09/29/2024 11:3 2 AM EST Narrative 10/01/2024 10:01 AM EST ? [facility] ?[address] ?[place] [address] ? Ultrasound Report ? Signed ? Patient: Jamari Bonilla ?MR#: [id number] ?? [id number] ? : 1955 ?Acct:[id number] ? Age/Sex: 69 / M ?ADM Date: 09/29/24 ? Loc: HO.US ? Attending Dr: William Cabrera MD ? Ordering Physician: William Cabrera MD ?? Date of Service: 09/29/24 ?? Procedure(s): US bladder ?? Accession Number(s): [id number] ? cc: William Cabrera MD; Roma Sharma MD ? EXAMINATION: ??US BLADDER ? HISTORY: R39.9 - Unspecified symptoms and signs involving the ?? genitourinary system ? COMPARISON: There are no prior studies for comparison. ? FINDINGS: ??Sonographic examination of the urinary bladder was performed ?? before and after voiding. Before voiding, the urinary bladder measured ?? 10.6 x 5.2 x 8.8 cm for an estimated volume of 255 mL. No intrinsic ?? bladder abnormality is identified. Bilateral ureteral jets are ?? identified. After voiding, the urinary bladder measured 4.4 x 2.4 x 3.6 ?? cm for an estimated volume of 20 mL. The prostate measures 3.3 x 3.5 x ?? 4.0 cm. ? US/US bladder ?? IMPRESSION: ?? Post void bladder residual of 20 mL. No intrinsic bladder abnormality ?? is identified. ? Electronically signed by: ??Devon Stephens MD ??10/01/2024 09:58 AM EST ?? RP ? Dictated By: ?Devon Stephens MD ? Signed By: ?<Electronically signed by Devon Stephens MD in OV> ?10/01/24 0958 ? DD/ 1132 ? TD/TT: 09/29/24 1143 ? Rack Puller: ? Procedure Note Donotuseinterpreter, Image - 10/01/2024 [place] [id number] Ultrasound Report Signed Patient: Sherif Bonilla#: [id number] : 6Acct:[id number] Age/Sex: 69 / MADM Date: 09/29/24 Loc: HO.US Attending Dr: William Cabrera MD Ordering Physician: William Cabrera MD Date of Service: 09/29/24 Procedure(s): US bladder Accession Number(s): [id number] cc: William Cabrera MD; Roma Sharma MD EXAMINATION: US BLADDER HISTORY: R39.9 - Unspecified symptoms and signs involving the genitourinary system COMPARISON: There are no prior studies for comparison. FINDINGS: Sonographic examination of the urinary bladder was performed before and after voiding. Before voiding, the urinary bladder measured 10.6 x 5.2 x 8.8 cm for an estimated volume of 255 mL. No intrinsic bladder abnormality is identified. Bilateral ureteral jets are identified. After voiding, the urinary bladder measured 4.4 x 2.4 x 3.6 cm for an estimated volume of 20 mL. The prostate measures 3.3 x 3.5 x 4.0 cm. US/US bladder IMPRESSION: Post void bladder residual of 20 mL. No intrinsic bladder abnormality is identified. Electronically signed by: Devon Stephens MD 10/01/2024 09:58 AM EST Dictated By: Devon Stephens MD Signed By: <Electronically signed by Devon Stephens MD in OV> 10/01/24 0958 DD/ 1132 TD/TT: 09/29/24 1143 Rack Puller: [facility] External Provider IMG US PROCEDURES Final Result * Hepatitis Panel, General (04/09/2024 9:20 AM EDT) Hepatitis A IgM Nonreactive Nonreactive [facility] Comment:IgM antibodies to HEARD V not detected; does not exclude earlyacute or recovered HAV infection. ~Hepatitis B Surface Antibody NONREACTIVE Nonreactive [facility] Comment:Nonreactive: < 8.00 mIU/mL Hepatitis B Core Antibody Nonreactive Nonreactive [facility] Hepatitis C Antibody Nonreactive Nonreactive [facility] Comment:Antibodies to HCV no t detected; does not exclude early acuteHCV infection. Hepatitis B Surface Ag Negative Negative [facility] Blood 04/09/2024 9:20 AM EDT 04/09/2024 10:40 AM EDT Roma Sharma MD LAB BLOOD ORDERABLES Fin al Result Performing Organization Address City/State/[facility] Co de Phone Number [facility] [address] [place] [phone] * Albumin, Random Urine W/Creatinine (04/09/2024 9:20 AM EDT) Creatinine, Urine 104.10 mg/dL [facility] Microalbumin Urine 15.5 mg/L [facility] Microalbum Creatinine Ratio Ur 14.8 <30 ug/mg cr [facility] Comment:Albumin/Creatinine R atio Reference Ranges: Normal: < 30 ug/mg creatinine Microalbuminuria: 30 - 300 ug/mg creatinineClinical Albuminuria: > 300 ug/mg creatinine Urine (Urine, Random) 04/09/2024 9:20 AM EDT 04/09/2024 10:42 AM EDT Roma Sharma MD LAB URINE ORDERABLES Fin al Result Performing Organization Address [facility] Co de Phone Number [facility] [address] [place] [address] [phone] * Lipid Panel with Reflex to Direct LDL (04/09/2024 9:10 AM EDT) Triglycerides 52 <150 mg/dL [facility] Comment:Desirable Triglyceri de: less than 150 mg/dLBorderline High Triglyceride 150-199 mg/dLHigh Triglyceride: 200-499 mg/dLVery High Triglyceride: greater than or equal to 5OO mg/dL Cholesterol 172 <200 mg/dL [facility] Comment:Desirable Cholestero l: less than 200 mg/dLBorderline High Cholesterol: 200-239 mg/dLHigh Cholesterol: greater than 239 mg/dL LDL Cholesterol Calculated 97 <100 mg/dL [facility] Comment:Desirable LDL: less than 100 mg/dLNear Optimal/Above Optimal LDL: 110- 129 mg/dLBorderline High LDL: 130-159 mg/dLHigh LDL: 160-189 mg/dLVery High LDL: greater than or equal to 190 mg/dL HDL Cholesterol 65 >40 mg/dL [facility] Comment:Desirable HDL: great er than 40 mg/dL Note: This HDL assay may give artificially low results in patients with liver disease. Blood 04/09/2024 9:10 AM EDT 04/09/2024 10:40 AM EDT us Roma Sharma MD LAB BLOOD ORDERABLES Fin al Result Performing Organization Address City/[facility]/ZIP Co de Phone Number [facility] [address] [place] [phone] from Last 3 Months or Most Recently Relevant to Health Maintenance Insurance [facility] - [facility] Care Teams Fabric Worker Foreman Relationship Specialty Start Date End Date Roma Sharma MD [address] [place] [address] PCP - General Internal Medicine 04/06/24 Carlos Eduardo Marinelli, Anant [address] [place] [phone] Pharmacist Internal Medicine 05/19/24
--- OUTSIDE RECORDS SUMMARY | 2024-12-01 17:07 | XMS_ITS | Encounter Summary ---
Author Organization [employer] Address [address] [place] [address] Care Team Providers Care Kersey Department Supervisor Name Role Phone Roma Sharma MD Primary Care Provider + Carlos Eduardo Marinelli PharmD Unavailable [phone] Reason for Visit * Reason Onset Date Comments medical clearance 04/07/2024 Encounter Details Date Type Department Care Team (Late st Contact Info) Description 04/07/2024 Telephone [facility] [address] [place], [place] [phone] Ronald Church, TYRESE [address] [place] [phone] medical clearance Social History Tobacco Use Types Packs/Day Years Used Date Smoking Tobacco: Never Smokeless Tobacco: Never Alcohol Use Standard Drinks/Week Comments Yes 1 (1 standard drink = 0.6 oz pure alcohol) Used to drink heavily 6 pack/d until 12/2023 for the previous 15y Housing Stability Answer Date Recorded What is your housing situation today? I have [facility] 03/30/[address] you li [...] off services in your home? No 03/30/2024 Sex and Gender Information Value Date Recorded Sex Assigned at Male 01/26/2024 12:32 PM EDT Legal Sex Male 10:25 AM EDT Gender Identity Male 01/26/2024 12:32 PM EDT Sexual Orientation Straight 01/26/2024 12 :32 PM EDT documented as of this encounter Miscellaneous Notes * Telephone Encounter - Araceli Mirza - 04/07/2024 1:33 PM EDT Daughter of patient on HIPAA. She is looking to confirm if medical clearance came in from PCP. Stated they would send in 2 days ago. Confirming if provider has received and reviewing as it is not scanned in. If scanned in patient would like to schedule appt. Feeling pain. Informed daughter in the meantime if it has not been received and patient needs to be seen, they can reach out to office in the morning for emergency visit DR documented in this encounter Plan of Treatment Upcoming Encounters Date Type Department Care Team (Late st Contact Info) Description 12/03/2024 10:30 AM EDT Medication Management [facility] [address] [place] [phone] Carlos Eduardo Marinelli, PharmD [address] [place] [address] 12/17/2024 10:30 AM EDT Office Visit [facility] [address] [place] [address] Ronald Church, TYRESE [address] [place] [address] 01/04/2025 11:45 AM EDT Office Visit [facility] [address] [place] [phone] Roma Sharma MD [address] [place] [address] 03/29/2025 10:00 AM EDT Office Visit [facility] [address] [place] [address] Heather Victor documented as of this encounter Visit Diagnoses Not on filedocumented in this encounter Care Teams Kersey Department Supervisor Relationship Specialty Start Date End Date Roma Sharma MD [address] [place] [address] PCP - General Internal Medicine 04/06/24 Carlos Eduardo Marinelli, AaronD [address] [place] [address] Pharmacist Internal Medicine 05/19/24 documented as of this encounter
== END 2024-12-01 15:29 | disposition home or self-care (01) ==
LOC: HO.HGI 14:28
PROVIDERS: PCP Internal Medicine; Visit Provider Nurse Practitioner Family
DX: Z01.818 Encounter for other preprocedural examination (principal); Z12.11 Encounter for screening for malignant neoplasm of colon; K59.01 Slow transit constipation
CPT/HCPCS: 99024

== ENCOUNTER → 2024-12-01 14:28 | Outpatient (BNVA) | payer OTHER, SELFPAY | PROVIDERS: PCP Internal Medicine; Visit Provider Nurse Practitioner Family | DX: Z12.11 Encounter for screening for malignant neoplasm of colon (principal); K59.01 Slow transit constipation | CPT/HCPCS: 99212 ==

== ENCOUNTER 2025-02-11 15:23 | Outpatient (AMB) | payer OTHER, SELFPAY ==
--- NOTE | 2025-02-11 15:23 | MHC.OFFVIS ---
"Intake Visit Reasons: TUR Prostate/Bipolar button questions Intake Note: Patient is present for TUR PROSTATE/BIPOLAR BUTTON QUESTIONS Urology Medication:TAMSULOSIN,FINASTERIDE Antibiotic Allergy:NONE Blood Thinner:ASPIRIN Processing Supervisor Required: No Allergies No Known Allergies Allergy (Verified 02/11/25 15:25) HPI Comments Details: Jamari is a pleasant [place]serratian-speaking male. He is a patient of . He is seen for the following urologic conditions - lower urinary tract symptoms [place]ian translation provided by qualified registered public health nurse Telemedicine Evaluation 15 min Consultation [employer] Mau Video Cysto with tight bladder neck Plan bipolar plasma button TURP Lower urinary tract symptoms Prior presentation with nocturia times 4-5, urinary urgency and frequency, weak stream Family history prostate cancer brother Recommend trial of combination therapy alpha-amber +5 AR Ultrasound with less than 40 g prostate PFSH Medical History Nocturia H/O urinary frequency H/O urinary retention Lower urinary tract symptoms (LUTS) Vitamin D deficiency, unspecified Essential (primary) hypertension White matter disease, unspecified Bilateral primary osteoarthritis of knee Alcohol abuse Mixed hyperlipidemia Type 2 diabetes mellitus with hyperglycemia Family History Brother Prostate cancer Mother Diabetes mellitus, type II Breast cancer in female Review of Systems Const All systems reviewed & are unremarkable except as noted in HPI and below Reports no additional complaints Resp Reports no additional complaints GI Reports no additional complaints Reports as per HPI Musc Reports no additional complaints Physical Exam Telemedicine evaluation Appropriate responses Regular breathing rate and rhythm HEENT Head: Yes normal to inspection Ears: hearing grossly normal bilaterally Eyes General: appearance normal, both eyes and all related structures Neck Neck: Yes normal visual inspection Chest Chest palpation & inspection: normal inspection of the chest Resp Effort & Inspection: normal respiratory effort and able to speak in complete sentences Telehealth Telehealth Telehealth Platform: Traveler | VIP Location of provider rendering services: practice address Location of patient: address on file Patient Identification confirmed using: Name, : Yes Telehealth method: voice only Patient verbally consented to treatment: Yes Patient verbally consented to billing insurance company: Yes Patient informed of any privacy concerns related to visit: Yes Minutes spent on Phone/Video with Pt.: 15 Assessment & Plan Assessment & Plan (1) Lower urinary tract symptoms (LUTS): Code(s): R39.9 - Unspecified symptoms and signs involving the genitourinary system Category: Medical (2) Incomplete emptying of bladder due to benign prostatic hyperplasia: Code(s): N40.1 - Benign prostatic hyperplasia with lower urinary tract symptoms; R33.9 - Retention of urine, unspecified Category: Medical Plan Plan procedure Patient Instructions: This note is constructed using voice recognition software. While every effort has been made to ensure accuracy hand woven carpet and rug mender errors may have been included. Imaging studies, laboratory and physical exam results were discussed and reviewed in detail. No major barriers to patient understanding were identified. An opportunity to ask questions regarding the treatment plan was provided. All questions were answered. The patient expressed understanding and agreement with the above treatment plan. The patient is aware they should contact our office by phone for worsening of their current condition or the appearance of new urologic symptoms. Compliance is encouraged with any medications and followup testing that is ordered. It is a privilege to participate in the urologic care of your patient. If you have any questions or concerns regarding treatment for the above conditions, or other urologic issues, please do not hesitate to contact me. The office telephone contact is [phone]. Sincerely, Dr William Cabrera MD, [facility] - Urology Compassionate Specialist Care for the Genitourinary System Coding Level of Care Code Tele Est Pt Level 3 (96601) Diagnoses Lower urinary tract symptoms (LUTS) R39.9 Incomplete emptying of bladder due to benign prostatic hyperplasia N40.1; R33.9"
== END 2025-02-11 16:26 | disposition home or self-care (01) ==
LOC: HO.HUSH 15:23
PROVIDERS: PCP Internal Medicine; Visit Provider Urology
DX: R39.9 Unspecified symptoms and signs involving the genitourinary system (principal); N40.1 Benign prostatic hyperplasia with lower urinary tract symptoms; R33.9 Retention of urine, unspecified
CPT/HCPCS: 99213

== ENCOUNTER 2025-05-16 06:03 | Day surgery (SDC) | payer OTHER, SELFPAY ==
[2024-12-16 09:36] VITALS: BMI 26.4
--- NOTE | 2024-12-16 14:03 | HO.ANESPROP2 ---
HPI - Anesthesia Eval Consult details Narrative: 69yo M for TUR Prostate with Bipolar Button Anesthesia Pre-Procedure Meds Is the patient on any of the following meds?: GLP1/DPP4 and SGLT2 Inhib PMFSH Active Problems Active Problems: All Active Problems Incomplete emptying of bladder due to benign prostatic hyperplasia (Acute) Lower urinary tract symptoms (LUTS) (Acute) Past Medical History Medical History Nocturia H/O urinary frequency H/O urinary retention Lower urinary tract symptoms (LUTS) Vitamin D deficiency, unspecified Essential (primary) hypertension White matter disease, unspecified Bilateral primary osteoarthritis of knee Alcohol abuse Mixed hyperlipidemia Type 2 diabetes mellitus with hyperglycemia Family History Family History Brother Prostate cancer Mother Diabetes mellitus, type II Breast cancer in female Meds Allergies Allergy/AdvReac Type Severity Reaction Status Date / Time No Known Allergies Allergy Verified 12/01/24 14:51 Home Medications ?Medication ?Instructions ?Recorded ?Confirmed ?Last Taken ?Type aspirin 81 mg tablet,delayed 81 mg PO DAILY 08/11/24 Unknown History release atorvastatin 40 mg tablet 40 mg PO DAILY 08/11/24 Unknown History blood-glucose sensor (FreeStyle #1 ea 08/11/24 Unknown History Rob 3 Sensor device) insulin glargine 100 unit/mL (3 unit subcut 08/11/24 Unknown History mL) subcutaneous pen (Lantus Solostar U-100 Insulin) losartan 25 mg tablet 25 mg PO DAILY 08/11/24 Unknown History losartan 50 mg tablet 50 mg PO DAILY 08/11/24 Unknown History metformin 750 mg tablet,extended 750 mg PO BID 08/11/24 Unknown History release 24 hr polyvinyl alcohol 1.4 % eye drops drp ophthalmic (eye) 08/11/24 Unknown History dulaglutide 0.75 mg/0.5 mL mg subcut 10/05/24 Unknown History subcutaneous pen injector (Trulicity) empagliflozin 10 mg tablet 10 mg PO DAILY 10/05/24 Unknown History (Jardiance) divalproex 250 mg tablet,extended mg PO 12/01/24 Unknown History release 24 hr Exam Height,Weight and Vital Signs: Height 5 ft 10 in Weight 83.574 kg Narrative Narrative: EKG 12/2023 Vent. Rate : 098 BPM Atrial Rate : 098 BPM P-R Int : 158 ms QRS Dur : 096 ms QT Int : 338 ms P-R-T Axes : 072 064 065 degrees QTc Int : 431 ms Normal sinus rhythm Possible Left atrial enlargement Minimal voltage criteria for LVH, may be normal variant ( Sokolow-Solano ) Nonspecific ST and T wave abnormality Abnormal ECG No previous ECGs available Assessment and Plan Assessment Anesthesia Assessment: Chart Reviewed
--- NOTE | 2025-03-24 08:50 | HO.ANESPROP2 ---
HPI - Anesthesia Eval Consult details Narrative: 70yo M for TUR Prostate with Bipolar Button Anesthesia Pre-Procedure Meds Is the patient on any of the following meds?: GLP1/DPP4 and SGLT2 Inhib PMFSH Active Problems Active Problems: All Active Problems Incomplete emptying of bladder due to benign prostatic hyperplasia (Acute) Lower urinary tract symptoms (LUTS) (Acute) Past Medical History Medical History Nocturia H/O urinary frequency H/O urinary retention Lower urinary tract symptoms (LUTS) Vitamin D deficiency, unspecified Essential (primary) hypertension White matter disease, unspecified Bilateral primary osteoarthritis of knee Alcohol abuse Mixed hyperlipidemia Type 2 diabetes mellitus with hyperglycemia Family History Family History Brother Prostate cancer Mother Diabetes mellitus, type II Breast cancer in female Meds Allergies Allergy/AdvReac Type Severity Reaction Status Date / Time No Known Allergies Allergy Verified 02/11/25 15:25 Home Medications ?Medication ?Instructions ?Recorded ?Confirmed ?Last Taken ?Type aspirin 81 mg tablet,delayed 81 mg PO DAILY 08/11/24 Unknown History release atorvastatin 40 mg tablet 40 mg PO DAILY 08/11/24 Unknown History blood-glucose sensor (FreeStyle #1 ea 08/11/24 Unknown History Rob 3 Sensor device) insulin glargine 100 unit/mL (3 unit subcut 08/11/24 Unknown History mL) subcutaneous pen (Lantus Solostar U-100 Insulin) losartan 25 mg tablet 25 mg PO DAILY 08/11/24 Unknown History losartan 50 mg tablet 50 mg PO DAILY 08/11/24 Unknown History metformin 750 mg tablet,extended 750 mg PO BID 08/11/24 Unknown History release 24 hr polyvinyl alcohol 1.4 % eye drops drp ophthalmic (eye) 08/11/24 Unknown History dulaglutide 0.75 mg/0.5 mL mg subcut 10/05/24 Unknown History subcutaneous pen injector (Trulicity) empagliflozin 10 mg tablet 10 mg PO DAILY 10/05/24 Unknown History (Jardiance) divalproex 250 mg tablet,extended mg PO 12/01/24 Unknown History release 24 hr Exam Height,Weight and Vital Signs: Height 5 ft 10 in Weight 83.574 kg Assessment and Plan Assessment Anesthesia Assessment: Chart Reviewed
--- NOTE | 2025-05-13 10:13 | HO.ANESPROP2 ---
Documented by User: Chaparrita Goddard NP 05/13/25 10:27 HPI - Anesthesia Eval Consult details Narrative: 70 yr old male for TUR Prostate with Bipolar Button Type 2 DM: A1C 7.1% Oct 2024 Memory loss per daughter: participates in day program, daughter coordinates all appointments Anesthesia Pre-Procedure Meds Is the patient on any of the following meds?: GLP1/DPP4 and SGLT2 Inhib PMFSH Active Problems Active Problems: All Active Problems Incomplete emptying of bladder due to benign prostatic hyperplasia (Acute) Lower urinary tract symptoms (LUTS) (Acute) Past Medical History Medical History Nocturia H/O urinary frequency H/O urinary retention Lower urinary tract symptoms (LUTS) Vitamin D deficiency, unspecified Essential (primary) hypertension White matter disease, unspecified Bilateral primary osteoarthritis of knee Alcohol abuse Mixed hyperlipidemia Type 2 diabetes mellitus with hyperglycemia Family History Family History Brother Prostate cancer Mother Diabetes mellitus, type II Breast cancer in female Social History Social History Patient Tobacco Use Status: Never used Tobacco Use of substances other than those prescribed or required for medical reasons: No Advance Directives: No Advance Directives Information Provided: Yes Meds Allergies Allergy/AdvReac Type Severity Reaction Status Date / Time No Known Allergies Allergy Verified 02/11/25 15:25 Home Medications ?Medication ?Instructions ?Recorded ?Confirmed ?Last Taken ?Type aspirin 81 mg tablet,delayed 81 mg PO DAILY 08/11/24 Unknown History release atorvastatin 40 mg tablet 40 mg PO DAILY 08/11/24 Unknown History blood-glucose sensor (FreeStyle #1 ea 08/11/24 Unknown History Rob 3 Sensor device) insulin glargine 100 unit/mL (3 unit subcut 08/11/24 Unknown History mL) subcutaneous pen (Lantus Solostar U-100 Insulin) losartan 25 mg tablet 25 mg PO DAILY 08/11/24 Unknown History losartan 50 mg tablet 50 mg PO DAILY 08/11/24 Unknown History metformin 750 mg tablet,extended 750 mg PO BID 08/11/24 Unknown History release 24 hr polyvinyl alcohol 1.4 % eye drops drp ophthalmic (eye) 08/11/24 Unknown History dulaglutide 0.75 mg/0.5 mL mg subcut 10/05/24 Unknown History subcutaneous pen injector (Trulicity) empagliflozin 10 mg tablet 10 mg PO DAILY 10/05/24 05/05/25 08:00 History (Jardiance) divalproex 250 mg tablet,extended mg PO 12/01/24 Unknown History release 24 hr Exam Height,Weight and Vital Signs: Height 5 ft 10 in Weight 83.574 kg Narrative Narrative: EKG 2023 Vent. Rate : 098 BPM Atrial Rate : 098 BPM P-R Int : 158 ms QRS Dur : 096 ms QT Int : 338 ms P-R-T Axes : 072 064 065 degrees QTc Int : 431 ms Normal sinus rhythm Possible Left atrial enlargement Minimal voltage criteria for LVH, may be normal variant ( Sokolow-Solano ) Nonspecific ST and T wave abnormality Abnormal ECG No previous ECGs available Documented by User: Jose Espinosa MD 05/16/25 07:26 [facility] Past Medical History Medical History Nocturia H/O urinary frequency H/O urinary retention Lower urinary tract symptoms (LUTS) Vitamin D deficiency, unspecified Essential (primary) hypertension White matter disease, unspecified Bilateral primary osteoarthritis of knee Alcohol abuse Mixed hyperlipidemia Type 2 diabetes mellitus with hyperglycemia Family History Family History Brother Prostate cancer Mother Diabetes mellitus, type II Breast cancer in female Family history of problems with anesthesia: No Surgical History History of Problems with Anesthesia: No Social History Social History Patient Tobacco Use Status: Never used Tobacco Use of substances other than those prescribed or required for medical reasons: No Advance Directives: No Advance Directives Information Provided: Yes Meds Allergies Allergy/AdvReac Type Severity Reaction Status Date / Time No Known Allergies Allergy Verified 02/11/25 15:25 Home Medications ?Medication ?Instructions ?Recorded ?Confirmed ?Last Taken ?Type aspirin 81 mg tablet,delayed 81 mg PO DAILY 08/11/24 Unknown History release atorvastatin 40 mg tablet 40 mg PO DAILY 08/11/24 Unknown History blood-glucose sensor (FreeStyle #1 ea 08/11/24 Unknown History Rob 3 Sensor device) insulin glargine 100 unit/mL (3 unit subcut 08/11/24 Unknown History mL) subcutaneous pen (Lantus Solostar U-100 Insulin) losartan 25 mg tablet 25 mg PO DAILY 08/11/24 Unknown History losartan 50 mg tablet 50 mg PO DAILY 08/11/24 Unknown History metformin 750 mg tablet,extended 750 mg PO BID 08/11/24 Unknown History release 24 hr polyvinyl alcohol 1.4 % eye drops drp ophthalmic (eye) 08/11/24 Unknown History dulaglutide 0.75 mg/0.5 mL mg subcut 10/05/24 Unknown History subcutaneous pen injector (Trulicity) empagliflozin 10 mg tablet 10 mg PO DAILY 10/05/24 05/05/25 08:00 History (Jardiance) divalproex 250 mg tablet,extended mg PO 12/01/24 Unknown History release 24 hr Exam Airway Mallampati Class: II TM Dist: >3cm Neck ROM: Full Denture: Upper Partial: Lower Heart: ok Lungs: ok Assessment and Plan Assessment Anesthesia Assessment: Anesthesia Plan Discussed and Chart Reviewed Final Anesthetic Review Family History of Problems with Anesthesia: No History of Problems with Anesthesia: No NPO: Yes ASA Class: III Final Preanesthetic Review: No Changes in Pt Med Stat, Meds/Allgs Chart Reviewed, Consent Obtained/Reviewed and Anes Risks/Benef Reviewed Patient Risk: Intermediate Procedure Risk: Low Anesthetic Plan Anesthetic Plan: GA and Agree w/ Assess. and Plan Disposition: Standard PACU
[2025-05-16 06:16] VITALS: BMI 24.5
[2025-05-16 06:33] VITALS: BP 157/72; PULSE 67; RESP 18; TEMP 36.3; O2SAT 99
[2025-05-16 06:35] LABS: Glucose, Whole Blood 144 mg/dL (60-115)
[2025-05-16] MEDS: Lactated Ringers 1,000 ML 100 ML IVCONT (06:35)
[2025-05-16 07:26] LABS: Hematocrit 38.1 % (42.0-52.0); Hemoglobin 11.6 g/dl (14.0-18.0); Mean Corpuscular HGB Conc 30.4 g/dl (31.0-36.0); Mean Corpuscular Hemoglobin 22.4 pg (27.0-33.0); Mean Corpuscular Volume 73.6 fL (80.0-98.0); NRBC Abs Auto 0.000 X10*3/uL (0.0-0.012); NRBC Pct Auto 0.0 /100WBC (0.0-0.2); Platelet Count 203 X10*3/uL (160-400); Red Blood Count 5.18 X10*6/uL (4.60-5.80); White Blood Count 5.6 X10*3/uL (4.8-10.8)
--- NOTE | 2025-05-16 07:33 | P.HPSUR_ITS ---
Pre-Procedural Eval Section A - 24 Hr Update-Section A only Date of Service: 05/16/25 The patient is an INPATIENT: No Changes since office visit: No Cold of Flu in the past 2 weeks, No New Medical Problems, No Changes in Medication and No Patient answered all questions The patient has been examined within 24 hours of the surgical procedure. The History & Physical has been completed within 30 days and I have reviewed it.: Yes Section B - Complete if H&P > 30 days Chief Complaint: Bladder-neck obstruction Details of Present Illness: plan for plasma button prostate resection Allergies: Allergies Allergy/AdvReac Type Severity Reaction Status Date / Time No Known Allergies Allergy Verified 02/11/25 15:25 Review of Systems Sugical H&P ROS: Negative: Constitution, Cardiovascular, Respiratory, Neurological, Psychiatric, Hem-Onc, Allergic/Immunologic, Gastrointestinal, Genitourinary, Musculoskeletal, Integumentary, Endocrine and Eyes/Ears/Nose/Throat Exam Surgical H&P Exam: Normal: HEENT, Normal: Heart, Normal: Lungs, Normal: E xtremities, Normal: Abdomen, Normal: Skin and Normal: Neurological Plan Diagnosis/Plan: Unchanged I have reviewed the history and physical and performed a pertinent physical examination on my patient. No changes have occurred unless specified. Time Spent With Patient Time: Total time managing care of this patient today ____ minutes.
[2025-05-16 07:47] LABS: Anion Gap 12 (12-20); Blood Urea Nitrogen 13 mg/dL (9-16); Calcium 8.5 mg/dL (8.4-10.2); Carbon Dioxide 26 mmol/L (22-29); Chloride 108 mmol/L (96-108); Creatinine Clr Calc Pharmacy 95.9; Estimated Glomerular Filt Rate > 60; Potassium 3.7 mmol/L (3.3-5.1); Sodium 142 mmol/L (135-145)
[2025-05-16 08:13] VITALS: BP 135/72; PULSE 72; RESP 14; TEMP 36.4; O2SAT 97
[2025-05-16 08:18] VITALS: BP 135/73; PULSE 68; RESP 16; O2SAT 97
[2025-05-16 08:23] VITALS: BP 142/77; PULSE 65; RESP 16; O2SAT 97
[2025-05-16 08:28] VITALS: BP 140/75; PULSE 63; RESP 16; O2SAT 97
--- NOTE | 2025-05-16 08:29 | P.OP_ITS ---
Operative Note Operative Note Date of Service: 05/16/25 Narrative: PreOperative Diagnosis: Bladder outlet obstruction Post Operative Diagnosis: Bladder outlet obstruction Procedure: CPT 38033 - Transurethral electrosurgical prostate resection Surgeon: Dr William Cabrera Anesthesia: General History of bladder outlet obstruction. Treated with alpha-amber and other medications. Still with symptoms. On cystoscopy in office has tight bladder neck. Recommendation for prostate procedure with plasma button Transurethral electrosurgical prostate resection. Size of prostate less than 40 cc. Risks and benefits have been discussed. Focus was placed on development of retrograde ejaculation which is a normal part of this procedure. Procedure: After informed consent was verified the patient was brought to the operating room and placed in a supine position. Anesthesia was administered per protocol. Patient was placed in modified dorsal lithotomy position and prepped and draped in a sterile fashion. Safety pause time-out was confirmed. Antibiotics have been given. A Twenty-four Malaysian cystoscope with visual obturator was inserted per urethra. No abnormalities were found of the anterior and bulbar urethra. The prostatic urethra shows tight bladder neck. The bladder was examined and both ureteric orifices were seen in their normal positions away from the area of interest. Bladder trabeculation Grade 1. The visual obturator was removed and replaced with a plasma button resection loop. Using the plasma button incisions were made at the 5 and 7 o'clock position. The initial incision was made at the 7 o'clock position starting level with the bladder neck and in line with ureteric orifice on that side. The groove was extended distally to the area just proximal of the veru. This groove was deepened with multiple passes to define the lateral aspects of the median lobe area. The proximal portion of the groove was extended through the bladder neck and remained in line with the ureteric orifice on each side. The goal was to reveal prostate strands from trhe surgical capsule. Once clearly defined the groove was extended in the lateral direction. The 05:00 o'clock position groove was then created in a similar fashion. The intervening median lobe was then resected and enucleated tissue released into the bladder. The deep boundary of resection was defined by the prostate surgical capsule. In this case due to the smaller prostate size a decision was made not to proceed with further resection of the lateral lobes. At completion debris and pieces of prostate were removed from the bladder with irrigation. Both ureteric orifices were reviewed again in shown to be patent in away from any areas of energy damage. The apical area was reviewed and any stray mucosal ooze was controlled. A 22 Malaysian 30 cc balloon Bond catheter was placed into the bladder using a flexible stylet. Clear efflux was obtained upon irrigation with a Alison piston syringe. 30 cc was placed in the balloon and gentle traction was placed. A snap was used to hold tension on the catheter to control bleeding during patient moved and transported. A drainage bag was placed. A Belladonna suppository was placed for post procedural pain relief. Once transportation is complete to the PACU the snap will be removed. The patient tolerated the procedure well, he was extubated in the operating and transferred in a stable condition to the recovery area. Pathology: Prostate tissue Drains: Bond catheter
[2025-05-16 08:41] VITALS: BP 149/75; PULSE 64; RESP 16; TEMP 36.3; O2SAT 98
== END 2025-05-16 09:23 | disposition home or self-care (01) ==
PROVIDERS: Nurse Practitioner; PCP Internal Medicine; Visit Provider Urology
PROC: 0VT08ZZ Resection of Prostate, Via Natural or Artificial Opening Endoscopic (ICD-10-PCS; CPT 52601; principal; 2025-05-16 07:30)
DX: N32.0 Bladder-neck obstruction (principal); N40.1 Benign prostatic hyperplasia with lower urinary tract symptoms; R33.8 Other retention of urine; R35.1 Nocturia; R39.15 Urgency of urination; R35.0 Frequency of micturition; R39.12 Poor urinary stream; Z80.42 Family history of malignant neoplasm of prostate; I10 Essential (primary) hypertension; E78.2 Mixed hyperlipidemia; E11.65 Type 2 diabetes mellitus with hyperglycemia; E55.9 Vitamin D deficiency, unspecified; F10.10 Alcohol abuse, uncomplicated; Z79.82 Long term (current) use of aspirin; Z79.4 Long term (current) use of insulin; Z79.84 Long term (current) use of oral hypoglycemic drugs; Z79.85 Long-term (current) use of injectable non-insulin antidiabetic drugs; Z79.899 Other long term (current) drug therapy
CPT/HCPCS: 52601; 36415; 80048; 82947; 85027; A4649; J1956; J2003; J2704; J3010

== ENCOUNTER → 2025-05-16 06:03 | Outpatient (BNV) | payer OTHER, SELFPAY | PROVIDERS: PCP Internal Medicine; Visit Provider Urology | DX: N32.0 Bladder-neck obstruction (principal) | CPT/HCPCS: 52601 ==

== ENCOUNTER 2025-06-17 08:10 | Outpatient (REF) | payer OTHER, SELFPAY ==
--- OUTSIDE RECORDS SUMMARY | 2019-04-30 06:57 | XMS_ITS | Continuity of Care Document ---
Author Organization [facility] Address [address] [place] [address] Phone Care Team Providers Care Government Property Inspector Name Role Phone A Telephone, Call Unavailable Unavailable Advance Directives Directive Yes / No Effective Date File Name No Information Encounters Encounter Description Practice Location Reason(s) For Visit Diagnoses Date Provider Providers Copied on Encounter [facility], [address] [place], [place], [id number], tel:[phone] [facility] No Information A Telephone Call. . Family History Family Member Type Diagnosis Age At Onset No Information Payers Payer name Insurance type Covered green party ID Authoriza tion(s) No Information Social [...]
--- OUTSIDE RECORDS SUMMARY | 2025-06-15 09:30 | XMS_ITS | Encounter Summary ---
Author Organization [employer] Address [address] [place] [address] 7 [place] [address] Care Team Providers Care Store Administrative Assistant Name Role Phone Yves Carlos Eduardo PharmD Unavailable [phone] Ronald Church DMD Unavailable Roma Sharma MD Primary Care Provider + Reason for Visit * Reason Comments Dentures reline Encounter Details Date Type Department Care Team ([facility] st Contact Info) Description 06/15/2025 9:30 AM EDT Office Visit [facility] ADULT DENTAL [address] [place] [address] Ronald Church, DMD [address] [place] [address] Social History Tobacco Use Types Packs/Day Years [...] Sign Reading Time Taken Comments Blood Pressure 130/80 06/15/2025 9:38 AM EDT Pulse - - Temperature - - Respiratory Rate - - Oxygen Saturation - - Inhaled Oxygen Concentration - - Weight - - Height - - Body Mass Index - - documented in this encounter Progress Notes * Ronald Church DMD - 06/15/2025 9:30 AM EDT C/C: lab reline of F/ due to F/ came out while chewing food After clinical exam, suction off/ is good, hyper-occlusion at upper anterior teeth Recommend pt to have occlusal adjustment first to see if the F/ feels better Occlusal adjustment is done on F/. Pt feels much better on his occlusion. Pt will try to use the F/ Inform pt that if his F/ keeps on falling out, pt can come back for lab reline of F/. Pt agreed Beronica documented in this encounter Plan of Treatment Upcoming Encounters Date Type Department Care Team (Late st Contact Info) Description 08/11/2025 9:00 AM EST Medication Management [facility] MEDICINE [address] [place] [phone] Carlos Eduardo Marinelli PharmD [address] [place] [address] 08/25/2025 9:00 AM EST Office Visit [facility] MED[facility] [address] [place] [address] Roma Sharma MD [address] [place] [address] 09/30/2025 1:30 PM EST Office Visit [facility] OPTOMETRY [address] [place] [address] TarkaPamela, OD [address] [place] [address] documented as of this encounter Goals Goal Patient Goal Type Associated Problems Recent Progress Patient-Stated? Author Blood Pressure < 140/90 Blood Pressure 128/58(2024 9:57 AM EDT) No Carlos Eduardo Marinelli PharmD Hemoglobin A1c < 7 Result Component 8.5( 9:58 AM EDT) No Carlos Eduardo Marinelli PharmD documented as of this encounter Procedures Procedure Name Priority Date/Time Associated Diagnosis Comments DENTURE ADJUSTMENT Routine 06/15/2025 9:30 AM EDT documented in this encounter Visit Diagnoses Not on filedocumented in this encounter Additional Health Concerns Assessment Noted Time PHQ-9 Depression Total Score: 12 11/29/ 025 10:44 AM EDT documented as of this encounter Care Teams Store Administrative Assistant Relationship Specialty Start Date End Date Roma Sharma MD [address] [place] [phone] PCP - General Internal Medicine 01/04/25 Carlos Eduardo Marinelli PharmD [address] [place] [address] Pharmacist Internal Medicine 05/19/24 Ronald Church DMD [address] [place] [phone] Dental Patient Companion 12/09/24 documented as of this encounter
--- OUTSIDE RECORDS SUMMARY | 2025-06-17 08:20 | XMS_ITS | Encounter Summary ---
Author Organization [employer] Address [address] [place] [address] 7 [place] [address] Care Team Providers Care Rat Breeder Name Role Phone Carlos Eduardo Marinelli PharmD Unavailable [phone] LynnetteRonald DMD Unavailable Roma Sharma MD Primary Care Provider + Reason for Visit * Reason Comments Med Refill Encounter Details Date Type Department Care Team ([facility] st Contact Info) Description 02/18/2025 Refill [facility] MED[facility] [address] [place], [place] [phone] Carlos Eduardo Marinelli, PharmD [address] [place] [address] Type 2 diabetes mellitus with hyperglycemia, with long-term current use of insulin ([facility]) Social History Tobacco Use Types [...] Description 08/11/2025 9:00 AM EST Medication Management [facility] MED[facility]INE [address] [place] [phone] Carlos Eduardo Marinelli, PharmD [address] [place] [address] 08/25/2025 9:00 AM EST Office Visit [facility] MED[facility] [address] [place] [address] Roma Sharma MD [address] [place] [address] 09/30/2025 1:30 PM EST Office Visit [facility] OPTOMETRY [address] [place] [address] Pamela Dubois, AUTUMN [address] [place] [address] documented as of this encounter Goals Goal [...] hyperglycemia, with long-term current use of insulin ([facility]) documented in this encounter Additional Health Concerns Assessment Noted Time PHQ-9 Depression Total Score: 12 025 10:44 AM EDT documented as of this encounter Care Teams Rat Breeder Relationship Specialty Start Date End Date Roma Sharma MD [address] [place] [phone] PCP - General Internal Medicine 01/04/25 Carlos Eduardo Marinelli PharmD [address] [place] [phone] Pharmacist Internal Medicine 05/19/24 Ronald Church DMD [address] [place] [phone] Dental [employer] 12/09/24 documented as of this encounter
--- OUTSIDE RECORDS SUMMARY | 2025-06-17 08:21 | XMS_ITS | Encounter Summary ---
Author Organization [employer] Address [address] [facility] 7t [place] [address] Care Team Providers Care Plastic Machine Operator Name Role Phone Roma Sharma MD Primary Care Provider + Carlos Eduardo Marinelli PharmD Unavailable [phone] Ronald Church DMD Unavailable Roma Sharma MD Primary Care Provider + Reason for Visit * Reason Onset Date Comments medical clearance 04/07/2024 Encounter Details Date Type Department Care Team (Late st Contact Info) Description 04/07/2024 Telephone [facility] ADULT DENTAL [address] [place] [address] Ronald Church, DMD [address] [place] [address] medical clearance Social History Tobacco Use Types [...] office in the morning for emergency visit documented in this encounter Plan of Treatment Upcoming Encounters Date Type Department Care Team (Late st Contact Info) Description 08/11/2025 9:00 AM EST Medication Management [facility] MEDICINE [address] [place] [address] Carlos Eduardo Marinelli, PharmD [address] [place] [address] 08/25/2025 9:00 AM EST Office Visit [facility] MEDICINE [address] [place] [address] Roma Sharma MD [address] [place] [address] 09/30/2025 1:30 PM EST Office Visit [facility] OPTOMETRY [address] [place] [address] Pamela Dubois, OD [address] [place] [address] documented as of this encounter Visit Diagnoses Not on filedocumented in this encounter Care Teams Plastic Machine Operator Relationship Specialty Start Date End Date Roma Sharma MD [address] [place] [phone] PCP - General Internal Medicine 04/06/24 12/08/24 Roma Sharma MD [address] [place] [address] [phone] PCP - General Internal Medicine 01/04/25 Carlos Eduardo Marinelli, AaronD [address] [place] [address] [phone] Pharmacist Internal Medicine 05/19/24 Ronald Church DMD [address] [place] [address] [phone] Dental Pullboat Engineer 12/09/24 documented as of this encounter
--- OUTSIDE RECORDS SUMMARY | 2025-06-17 08:21 | XMS_ITS | Encounter Summary ---
Author Organization [employer] Address [address] [facility] 7t [place] [address] Care Team Providers Care Employee Representative Name Role Phone Roma Sharma MD Primary Care Provider + Yves Carlos Eduardo PharmD Unavailable [phone] SamiRonald dobson DMD Unavailable Roma Sharma MD Primary Care Provider + Reason for Visit * Reason Onset Date Comments Med Refill 08/16/2024 Encounter Details Date Type Department Care Team (Late st Contact Info) Description 08/16/2024 Refill [facility] MED[facility]INE [address] [place], [place] [phone] Roma Sharma MD [address] [place], [place] [phone] Type 2 diabetes mellitus with hyperglycemia, with long-term current use of insulin ([facility]) Social History Tobacco Use Types Packs/Day Years Used Date Smoking Tobacco: Never Smokeless Tobacco: Never Alcohol Use Standard Drinks/Week Comments Not Currently 1 (1 standard drink = 0.6 oz pure alcohol) Oca, Used to drink heavily 6 pack/d until 12/2023 for the previous 15y Housing Stability Answer Date Recorded What is your housing situation today? I have [facility] 03/30/[address] you li [...] Description 08/11/2025 9:00 AM EST Medication Management [facility] MEDICINE [address] [place] [phone] Carlos Eduardo Marinelli, PharmD [address] [place] [address] 08/25/2025 9:00 AM EST Office Visit [facility] MEDICINE [address] [place] [phone] Roma Sharma MD [address] [place] [address] 09/30/2025 1:30 PM EST Office Visit [facility] OPTOMETRY [address] [place] [address] Pamela Dubois OD [address] [place] [address] documented as of this encounter Goals Goal Patient Goal Type Associated Problems Recent Progress Patient-Stated? Author Blood Pressure < 140/90 Blood Pressure 128/58(2024 9:57 AM EDT) No Carlos Eduardo Marinelli, PharmD Hemoglobin A1c < 7 Result Component 8.5( 5 9:58 AM EDT) No Carlos Eduardo Marinelli, PharmD documented as of this encounter Visit Diagnoses Diagnosis Type 2 diabetes mellitus with hyperglycemia, with long-term current use of insulin ([facility]) documented in this encounter Care Teams Employee Representative Relationship Specialty Start Date End Date Roma Sharma MD [address] [place] [address] PCP - General Internal Medicine 04/06/24 12/08/24 Roma Sharma MD [address] [place], [place] [phone] PCP - General Internal Medicine 01/04/25 Carlos Eduardo Marinelli, PharmD [address] [place] [address] [phone] Pharmacist Internal Medicine 05/19/24 Ronald Church DMD [address] [place], [place] [phone] Dental Industrial Coffee Grinder 12/09/24 documented as of this encounter
--- OUTSIDE RECORDS SUMMARY | 2025-06-17 08:21 | XMS_ITS | Clinical Summary ---
Author Organization [employer] Address [address] [facility] [address] [place] [address] Care Team Providers Care Hose Coupling Joiner Name Role Phone Carlos Eduardo Marinelli PharmD Unavailable [phone] SamiRonald dobson DMD Unavailable Roma Sharma MD Primary Care Provider + Allergies No known active allergies Medications * This document contains information received from the source organization and may not represent a complete record from that organization. 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 15 mL 6 024 2024 Active losartan (Cozaar) 50 MG tablet Take 1 tablet (50 mg) by mouth Once per day. 30 tablet 11 024 2024 Active finasteride (Proscar) 5 MG tablet TAKE 1 TABLET BY MOUTH EVERY DAY FOR 90 DAYS Active tamsulosin (Flomax) 0.4 MG 24 hr capsule Take 0.4 mg by mouth Once per day. Active divalproex (Depakote ER) 250 MG 24 hr tablet Take 1 tablet (250 mg) by mouth 2 times daily. Do not crush, chew, or split. 60 tablet 11 025 2025 Active Bisacodyl EC 5 MG EC tablet take 2 tablets (10mg) by mouth at bedtime 025 Active glucose blood (FreeStyle Precision Tavo Test) test stripIndications :Type 2 diabetes mellitus with hyperglycemia, with long-term current use of insulin ([facility]) Use to check blood sugar up to three times daily as needed for hypoglycemia or sensor failure. 100 each 11 025 2025 Active Lancets 33G miscIndications: Type 2 diabetes mellitus with hyperglycemia, with long-term current use of insulin ([facility]) Use to check blood sugar up to three times daily as needed for hypoglycemia or sensor failure. 100 each Active Lancet Devices (Lancing Device) miscIndications: Type 2 diabetes mellitus with hyperglycemia, with long-term current use of insulin ([facility]) Use as directed to test blood sugar. 1 each 025 Active aspirin (Aspirin Adult Low Dose) 81 MG EC tabletIndication s:Uncontrolled type 2 diabetes mellitus with hyperglycemia ([facility]) Take 1 tablet by mouth daily 90 tablet 3 025 Active atorvastatin (Lipitor) 40 MG tabletIndication s:Uncontrolled type 2 diabetes mellitus with hyperglycemia ([facility]) Take 1 tablet (40 mg) by mouth Once per day. 90 tablet 1 025 Active meloxicam (Mobic) 15 MG tablet 1 tab PO daily x 2w then daily prn pain 30 tablet 025 Active Sodium Fluoride (PreviDent 5000 Booster Plus) 1.1 % paste Apply 1 Application. to teeth 2 times daily. 112 g 3 025 Active Sodium Fluoride 1.1 % gel Apply 1 Application to teeth 2 times daily. 1 g 2 025 Active insulin glargine (Lantus SoloStar) 100 UNIT/ML penIndications:T ype 2 diabetes mellitus with hyperglycemia, with long-term current use of insulin ([facility]) Inject 20 units under the skin once daily 15 mL 025 Active empagliflozin-me tFORMIN ER (Synjardy XR) 12.5-1000 MG 24 hr tabletIndication s:Type 2 diabetes mellitus with hyperglycemia, with long-term current use of insulin ([facility]) Take 1 tablet by mouth 2 times daily. 60 tablet 5 025 Active glucose 4 g chewable tablet Chew 4 tablets (16 g) if needed for low blood sugar. 30 tablet Active Continuous Glucose Sensor (FreeStyle Rob 3 Sensor) miscIndications: Type 2 diabetes mellitus with hyperglycemia, with long-term current use of insulin (CMS/HCC) USE DIRECTED TO TEST BLOOD SUGAR. CHANGE EVERY 14 DAYS . 2 each Active Dulaglutide (Trulicity) 0.75 MG/0.5ML solution auto-injectorInd ications:Type 2 diabetes mellitus with hyperglycemia, with long-term current use of insulin (CMS/HCC) Inject 0.75 mg under the skin 1 (one) time per week. 2 mL Active Continuous Glucose Sensor (FreeStyle Rob 3 Sensor) miscIndications: Type 2 diabetes mellitus with hyperglycemia, with long-term current use of insulin (CMS/HCC) Apply 1 Device topically every 14 (fourteen) days. 2 each 025 2024 Discontinued acetaminophen (Tylenol 8 Hour) 650 MG ER tablet Take 1 tablet (650 mg) by mouth every 8 (eight) hours if needed for mild pain. Do not crush, chew, or split. 30 tablet 025 2024 Discontinued(M ed list cleanup (will not trigger notification to Pharmacy)) Trulicity 0.75 MG/0.5ML solution auto-injectorInd ications:Type 2 diabetes mellitus with hyperglycemia, with long-term current use of insulin (CMS/[facility]) INJECT ONE PEN (=0.75MG) SUBCUTANEOUSLY ONCE A WEEK DIRECTED 2 mL 025 2024 Discontinued(R eorder (will not trigger notification to Pharmacy)) Active Problems Problem Noted Date Diagnosed Date Knee pain, left 04/05/2025 Tendinosis of right rotator cuff 01/04/2025 Assessment & Plan (01/04/2025 2:54 PM EDT): Status post fall few weeks ago Rx meloxicam x 1 to 2 weeks daily, then as needed Referred to PT Retained dental root 12/17/2024 Edentulous maxilla 11/26/2024 Opiate use 11/05/2024 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 We discussed with him going to groups including [facility] meetings on Tuesdays and at [facility] He feels safe at home and is able to reach out for safety, he has crisis numbers Continue Depakote ER 250 mg twice daily and follow-up in 3 months Assessment & Plan (11/15/2024 9:38 AM EST): [...] with loved ones who and relocation [place] ago as triggers. Jamari finds support in the community. [facility] and also has a STATION SUPERINTENDENT. Pt reports receiving support from his daughter [...] lives in a third floor apartment in [place] and is looking to move to a lower floor near his adult children in [place]. Pt reports having diabetes as a chronic disease. The passing of his mother and sister years ago is a trigger for Jamari and leads to his depressive mood. Pt reports being able to manage and cope on his own. He attends a Day Program in [facility] Friday through Friday and reports having social support from the community, his STATION SUPERINTENDENT and his family. clinician engaged patient with active/reflective listening. Reviewed and assessed for risk, current stressors and protective factors using open-ended questions. Pt was connected with OP services but stopped attending session about two months ago. He declined OP referral and will contact clinician if he changes his mind regarding MH services. Provided information for [facility] centers, [facility] help line and [facility]. clinician will provide additional support during next [...] with loved ones who and relocation from [place] a year ago as triggers. Jamari finds support in the community. He attends a day program [employer] and also has a STATION SUPERINTENDENT. Pt reports receiving support from his daughter [...] I gave him information on psychotherapist from [facility] at [facility], so he can call and [...] with ETOH and other substances. Agreed to MH referral. He's able to reach out for [...] CT scan of brain on 12/2023 at [facility] in [place] showed diffuse WM changes See encounter on 04/07/24 Assessment & Plan (04/22/2024 3:15 PM EDT): CT scan of brain on 12/2023 at [facility] in [place] showed diffuse WM changes Its likely related to fci uncontrolled DM Continue ASA D/w patient re importance of taking meds as rx. Vitamin D deficiency 04/22/2024 Assessment & Plan (04/22/2024 3:25 PM EDT): Vit D levels is fairly normal at this time, we'll restart Vit at upcoming appts so that we can closely fu DM med tolerance first. Alcohol abuse 04/12/2024 Type 2 diabetes mellitus wit h hyperglycemia, with long-term current use of insulin 04/06/2024 Assessment & Plan (01/04/2025 2:53 PM EDT): Control, see previous note on October 2024 Assessment & Plan (11/05/2024 1:39 PM EST): [...] adjust sliding scale as needed, patient has Med[employer]se 3 system Add Metformin XR 750/d, will monitor GFR in 4-5w Refer to CDTM clinic and nutrition DTaP. Assessment & Plan (04/06/2024 4:29 PM EDT): Uncontrolled. Recently back on meds, not fully compliant Continue on lantus 40u/d, order labs and fu with me in 3-4w to adjust meds Counseled re more frequent low calorie/carb meals, he has info re local pantry in [place], refer to [facility]. Check fgstk 2x daily Encouraged [...] We discussed re community resources including [place] and AUD program here at [facility], AA meetings and reach out to recovery coaches. Assessment & Plan (04/06/2024 4:32 PM EDT): Has cutdown significantly D/w him re options to go to AA, AUD program or local groups /meetings including [employer] [facility] , he declined Advised to quit ETOH, check HIV, Hepatitis profile. Limited access to food 04/06/2024 Assessment & Plan (04/06/2024 4:32 PM EDT): Refer to SDOH Malnutrition 01/05/2024 Microcytic anemia 01/03/2024 Severe protein-calorie malnutrition 01/01/2024 Abnormal EKG 12/31/2023 Acute hypoxic respiratory failure 12/31/2023 Acute metabolic encephalopathy 12/31/2023 JEN (acute kidney injury) 12/31/2023 Diabetes mellitus 12/31/2023 DKA (diabetic ketoacidosis) 12/31/2023 Genital infection 12/31/2023 Hyperphosphatemia 12/31/2023 Hypothermia 12/31/2023 Pterygium eye, bilateral 12/31/2023 Sepsis 12/31/2023 Aspiration pneumonia of both lower lobes due to regurgitated food 12/12/2023 History of BPH 12/12/2023 Lactic acidosis 12/12/2023 Macrocytosis 12/12/2023 Benign essential hypertension 12/12/2023 Type 2 diabetes mellitus wit h hypoglycemia without coma, with long-term current use of insulin 12/12/2023 Special screening for malignant neoplasms, colon 02/08/2019 Overview (04/05/2025): Added automatically from request for surgery [id number] S/P left knee arthroscopy 08/08/2017 Old complex tear of medial meniscus of left knee 05/23/2017 Chest pressure 01/29/2016 Overview (04/05/2025): 01/29/16: Standard treadmill with reproduction of chest discomfort and ischemic ST depression that started in stage I and lasted late into recovery Gastroesophageal reflux disease without esophagi tis 01/29/2016 Type 1 diabetes 01/29/2016 Overview (04/05/2025): Diagnosed at age 19 Hyperlipidemia 01/29/2016 Hypertension 01/29/2016 Encounters Date Type Department Care Team Description 06/16/2025 Travel 06/15/2025 9:30 AM EDT Office Visit [facility] ADULT DENTAL [address] [place] [phone] Ronald Church DMD 05/26/2025 2:30 PM EDT Office Visit [facility] ADULT DENTAL [address] [place] [address] Ronald Church, TYRESE 05/24/2025 Refill [facility] MEDICINE [address] [place] [address] Roma Sharma MD Type 2 diabetes mellitus with hyperglycemia, with long-term current use of insulin ([facility]) 05/16/2025 Orders Only GENERIC EXTERNAL DATA DEPARTMENT Provider, Generic External Data 05/13/2025 Travel 04/15/2025 Travel 04/05/2025 9:00 AM EDT Office Visit [facility] ADULT DENTAL [address] [place] [address] Ronald Church, DMD 03/29/2025 10:00 AM EDT Office Visit [facility] ADULT DENTAL [address] [place] [address] Jennie León from Last 3 Months Immunizations Immunization Administration Dates Next Due HepB-CpG 08/25/2024,06/28/2024 Influenza injectable quadriv alent preservative free 08/09/2020,06/25/2019,10/01/2018 Influenza, High Dose Seasona l, Preservative Free 06/15/2024 Pfizer Covid-19 Vaccine 12+ 06/17/2024 Pneumococcal Conjugate PCV 20 06/28/2024 Tdap 06/15/2024,07/16/2015 Zoster, Recombinant 04/15/2025 Family History Medical History Relation Name Comments [...] Sign Reading Time Taken Comments Blood Pressure 128/58 06/16/2025 9:57 AM EDT Pulse 74 06/16/2025 9:57 AM EDT Temperature 36.2 C (97.2 F) 01/04/2025 11:38 AM EDT Respiratory Rate 16 04/06/2024 1:21 PM EDT Oxygen Saturation 97% 01/04/2025 11:38 AM EDT Inhaled Oxygen Concentration - - Weight 84.5 kg (186 lb 4 oz) 01/04/2025 11:38 AM EDT Height 180.3 cm (5' 11 ) 01/04/2025 11:38 AM EDT Body Mass Index 25.98 01/04/2025 11:38 AM EDT Plan of Treatment Upcoming Encounters Date Type Department Care Team (Late st Contact Info) Description 08/11/2025 9:00 AM EST Medication Management [facility] MEDICINE [address] [place] [phone] Carlos Eduardo Marinelli, PharmD [address] [place] [address] 08/25/2025 9:00 AM EST Office Visit [facility] MEDICINE [address] [place] [phone] Roma Sharma MD [address] [place] [address] 09/30/2025 1:30 PM EST Office Visit [facility] OPTOMETRY [address] [place] [address] Pamela Dubois, OD [address] [place] [address] Health Maintenance Due Date Last Done Comments CT Colonography 1956 Colonoscopy 1956 Colorectal Cancer Screening 1956 FIT DNA/Cologuard 1956 FIT 1956 FOBT 1956 Sigmoidoscopy 1956 Alcohol/Substance Use Screening 1968 RSV Patients and Patients Aged 60 years or older (1 - Risk 60-74 years 1-dose series) 2016 Diabetes: Foot Exam 04/06/2025 04/06/2024, 04/06/2024, 04/06/2024, Additional history exists SDOH Screening 04/06/2025 04/06/2024 Diabetes: Urine Protein Screening 04/09/2025 04/09/2024 Lipid Panel 04/09/2025 04/09/2024 COVID-19 Vaccine ( season) 2025 06/17/2024 Influenza Vaccine (#1) 2025 , 08/09/2020, 06/25/2019, Additional history exists Depression Monitoring 06/01/2025 11/29/2024, 025 Zoster Vaccines (2 of 2) 06/10/2025 04/15/2025 Diabetes: Hemoglobin A1C 08/13/2025 025, 02/01/2025, 11/05/2024, Additional history exists Dental Prophylaxis 09/30/2025 03/29/2025, 0 09/28/2024, 04/20/2024 Dental Oral Exam 10/07/2025 04/05/2025, 02/12/2024 Tobacco Screening 06/15/2026 06/15/2025 Eye Exam 07/27/2026 07/27/2024, 1101/2024, 07/27/2024, Additional history exists Dental X-Ray: Full Mouth 02/12/2027 02/12/2024 DTaP/Tdap/Td Vaccines (3 - Td or Tdap) 06/15/2034 06/15/2024, 07/16/2015 Hepatitis C Screening Completed 04/09/2024 Pneumococcal Vaccine: 50+ Years Completed 06/28/2024 Hepatitis B Vaccines Completed 08/25/2024, 06/28/20 Dental X-Ray: Bitewings Discontinued HIB Vaccines Aged Out No longer eligi [...] age to complete this topic Meningococcal B Vaccine Aged Out No l onger eligible based on patient's age to complete [...] AM EDT) No Carlos Eduardo Marinelli PharmD Procedures Procedure Name Priority Date/Time Associated Diagnosis Comments DENTURE ADJUSTMENT Routine 06/15/2025 9: 30 AM EDT DENTURE ADJUSTMENT Routine 05/26/2025 2: 30 PM EDT BASIC METABOLIC PANEL, FASTING Routine 05/16/2025 7:17 AM EDT CBC Routine 05/16/2025 7:17 AM EDT GLUCOSE, WHOLE BLOOD Routine 05/16/2025 6:30 AM EDT POCT GLYCATED HEMOGLOBIN, TOTAL Routine 05/13/2025 9:58 AM EDT Type 2 diabetes mellitus with hyperglycemia, with long-term current use of insulin ([facility]) CASE PRESENTATION, DETAILED AND EXTENSIVE TREATMENT PLANNING Routine 04/05/2025 9:00 AM EDT PERIODIC ORAL EVALUATION - ESTABLISHED PATIENT Routine 04/05/2025 9:00 AM EDT DENTURE FOLLOWUP Routine 04/05/2025 9:00 AM EDT TOPICAL APPLICATION OF FLUORIDE - EXCLUDING VARNISH Routine 03/29/2025 10:00 AM EDT CASE PRESENTATION, DETAILED AND EXTENSIVE TREATMENT PLANNING Routine 03/29/2025 10:00 AM EDT PROPHYLAXIS - ADULT Routine 03/29/2025 1 0:00 AM EDT HEPATITIS PANEL, GENERAL Routine 04/09/2024 9:20 AM EDT Type 2 diabetes mellitus with hyperglycemia, with long-term current use of insulin ([facility]) ALBUMIN, RANDOM URINE W/CREATININE Routine 04/09/2024 9:20 AM EDT Type 2 diabetes mellitus with hyperglycemia, with long-term current use of insulin ([facility]) LIPID PANEL WITH REFLEX TO DIRECT LDL Routine 04/09/2024 9:10 AM EDT Type 2 diabetes mellitus with hyperglycemia, with long-term current use of insulin ([facility]) PANORAMIC RADIOGRAPHIC IMAGE Routine 02/12/2024 10:00 AM EDT from Last 3 Months or Most Recently Relevant to Health Maintenance Results * (ABNORMAL) Basic Metabolic Panel, Fasting (05/16/2025 7:17 AM EDT) Sodium 142 135 - 145 mmol/L [facility] Potassium 3.7 3.3 - 5.1 mmol/L [facility] Chloride 108 96 - 108 mmol/L [facility] Carbon Dioxide 26 22 - 29 mmol/L [facility] Anion Gap 12 12 - 20 [facility] Urea Nitrogen (BUN) 13 9 - 16 mg/dL [facility] Creatinine, Serum 0.75 0.5 - 1.4 mg/dL [facility] Creatinine Clr Calc Pharmacy 95.9 [facility] Comment:eGFR (calculated fro m the MDRD study equation) and eCrCl(calculated from the Cockcroft-Gault equation) are based ondifferent parameters and may not yield comparable results.If eCrCl result is absurd, please check patient'sheight/weight. Estimated Glomerular Filt Rate >60 [facility] Comment:Chronic Kidney Disea se: Estimated GFR < 60 mL/min/[id number] Kidney Disease: Estimated GFR < 15 mL/min/1.73m2 Glucose Fasting 136(H) 60 - 99 mg/dL [facility] Comment:A fasting glucose of 126 mg/dl or greater on more than oneoccasion is considered diagnostic of diabetes. Calcium 8.5 8.4 - 10.2 mg/dL [facility] 05/16/2025 7:17 AM EDT 05/16/2025 7:20 AM EDT us Generic External Data Provider LAB BLOOD ORDERAB LES Final Result [facility] [address] [place] [phone] * (ABNORMAL) CBC (05/16/2025 7:17 AM EDT) White Blood Count 5.6 4.8 - 10.8 X10*3/uL [facility] Red Blood Count 5.18 4.60 - 5.80 X10*6/uL [facility] Hemoglobin 11.6(L) 14.0 - 18.0 g/dl [facility] Hematocrit 38.1(L) 42.0 - 52.0 % [facility] Mean Corpuscular Volume 73.6(L) 80.0 - 98.0 fL [facility] Mean Corpuscular Hemoglobin 22.4(L) 27.0 - 33.0 pg [facility] Mean Corpuscular HGB Conc 30.4(L) 31.0 - 36.0 g/dl [facility] Red Cell Distribution Width 17.5(H) 11.0 - 16.0 % [facility] Platelet Count 203 160 - 400 X10*3/uL [facility] Mean Platelet Volume 11.1 9.4 - 12.4 fL [facility] NRBC Pct Auto 0.0 0.0 - 0.2 /100WBC [facility] NRBC Abs Auto 0.000 0.0 - 0.012 X10*3/uL [facility] 05/16/2025 7:17 AM EDT 05/16/2025 7:20 AM EDT Generic External Data Provider LAB BLOOD ORDERAB LES Final Result Performing Organization Address City/[facility]/ZIP Co de Phone Number [facility] [address] [place] [phone] * (ABNORMAL) Glucose, Whole Blood (05/16/2025 6:30 AM EDT) Glucose, Whole Blood 144(H) 60 - 115 mg/dL [facility] Comment:METER #: [id number] 05/16/2025 6:30 AM EDT 05/16/2025 6:35 AM EDT Generic External Data Provider LAB BLOOD ORDERAB LES Final Result Performing Organization Address [facility]/ZIP Co de Phone Number [facility] [address] [place] [phone] * (ABNORMAL) POCT HGB A1C (05/13/2025 9:58 AM EDT) Pathologist [facility] Hemoglobin A1C 8.5(A) 4.0 - 5.7 % QC Media Lot # [id number] Lot# Expiration Date Blood 05/13/2025 9:58 AM EDT Roma Sharma MD POINT OF CARE TEST ENTER /EDIT ORDERABLES Final Result * Hepatitis Panel, General (04/09/2024 9:20 AM EDT) Pathologist [facility] Hepatitis A IgM Nonreactive Nonreactive [facility] Comment:IgM antibodies to HEARD V not detected; does not exclude earlyacute or recovered HAV infection. ~Hepatitis B Surface Antibody NONREACTIVE Nonreactive [facility] Comment:Nonreactive: < 8.00 mIU/mL Hepatitis B Core Antibody Nonreactive Nonreactive [facility] Hepatitis C Antibody Nonreactive Nonreactive [facility] Comment:Antibodies to HCV no t detected; does not exclude early acuteHCV infection. Hepatitis B Surface Ag Negative Negative [facility] Blood 04/09/2024 9:20 AM EDT 04/09/2024 10:40 AM EDT Roma Sharma MD LAB BLOOD ORDERABLES Fin al Result Performing Organization Address [facility] Co de Phone Number [facility] [address] [place] [address] [phone] * Albumin, Random Urine W/Creatinine (04/09/2024 9:20 AM EDT) Creatinine, Urine 104.10 mg/dL [facility] Microalbumin Urine 15.5 mg/L [facility] Microalbum Creatinine Ratio Ur 14.8 <30 ug/mg cr [facility] Comment:Albumin/Creatinine R atio Reference Ranges: Normal: < 30 ug/mg creatinine Microalbuminuria: 30 - 300 ug/mg creatinineClinical Albuminuria: > 300 ug/mg creatinine Urine (Urine, Random) 04/09/2024 9:20 AM EDT 04/09/2024 10:42 AM EDT Roma Sharma MD LAB URINE ORDERABLES Fin al Result Performing Organization Address [facility] Co de Phone Number [facility] [address] [place] [phone] * Lipid Panel with Reflex to Direct LDL (04/09/2024 9:10 AM EDT) Triglycerides 52 <150 mg/dL [facility] Comment:Desirable Triglyceri de: less than 150 mg/dLBorderline High Triglyceride 150-199 mg/dLHigh Triglyceride: 200-499 mg/dLVery High Triglyceride: greater than or equal to 5OO mg/dL Cholesterol 172 <200 mg/dL [facility] Comment:Desirable Cholestero l: less than 200 mg/dLBorderline High Cholesterol: 200-239 mg/dLHigh Cholesterol: greater than 239 mg/dL LDL Cholesterol Calculated 97 <100 mg/dL [facility] Comment:Desirable LDL: less than 100 mg/dLNear Optimal/Above Optimal LDL: 110- 129 mg/dLBorderline High LDL: 130-159 mg/dLHigh LDL: 160-189 mg/dLVery High LDL: greater than or equal to 190 mg/dL HDL Cholesterol 65 >40 mg/dL [facility] Comment:Desirable HDL: great er than 40 mg/dL Note: This HDL assay may give artificially low results in patients with liver disease. Blood 04/09/2024 9:10 AM EDT 04/09/2024 10:40 AM EDT us Roma Sharma MD LAB BLOOD ORDERABLES Fin al Result [facility] [address] [place] [phone] from Last 3 Months or Most Recently Relevant to Health Maintenance Insurance [facility] [employer] OPT[employer] (HMO D-SNP) [facility] Care Teams Hose Coupling Joiner Relationship Specialty Start Date End Date Roma Sharma MD [address] [place], [place] [phone] PCP - General Internal Medicine 01/04/25 Carlos Eduardo Marinelli, Anant [address] [place], [place] [phone] Pharmacist Internal Medicine 05/19/24 Ronald Church DMD [address] [place] [address] Dental Carbide Operator 12/09/24
--- OUTSIDE RECORDS SUMMARY | 2025-06-17 08:21 | XMS_ITS | Encounter Summary ---
Author Organization [employer] Address [address] [facility] 7t [place] [address] Care Team Providers Care International Trade Teacher Name Role Phone Roma Sharma MD Primary Care Provider + Yves Carlos Eduardo PharmD Unavailable [phone] SamiRonald dobson DMD Unavailable Roma Sharma MD Primary Care Provider + Reason for Visit * Reason Onset Date Comments Med Refill 09/23/2024 Encounter Details Date Type Department Care Team (Late st Contact Info) Description 09/23/2024 Refill [facility] [address] [place], [place] [phone] Roma Sharma MD 230 [place], [place] [phone] Type 2 diabetes mellitus with hyperglycemia, with long-term current use of insulin ([facility]) Social History Tobacco Use [...] Description 08/11/2025 9:00 AM EST Medication Management [facility] [address] [place] [phone] Carlos Eduardo Marinelli, PharmD [address] [place] [address] 08/25/2025 9:00 AM EST Office Visit [facility] [address] [place] [address] Roma Sharma MD [address] [place] [address] 09/30/2025 1:30 PM EST Office Visit [facility] OPTOMETRY [address] [place] [address] Pamela Dubois OD [address] [place] [address] documented as of this encounter Goals Goal [...] hyperglycemia, with long-term current use of insulin ([facility]) documented in this encounter Care Teams International Trade Teacher Relationship Specialty Start Date End Date Roma Sharma MD [address] [place] [address] PCP - General Internal Medicine 04/06/24 12/08/24 Roma Sharma MD [address] [place], [place] [phone] PCP - General Internal Medicine 01/04/25 Carlos Eduardo Marinelli, PharmD [address] [place] [address] [phone] Pharmacist Internal Medicine 05/19/24 Ronald Church DMD [address] [place], [place] [phone] Dental Floor Mechanic 12/09/24 documented as of this encounter
--- OUTSIDE RECORDS SUMMARY | 2025-06-17 08:21 | XMS_ITS | Encounter Summary ---
Author Organization [email or web address] Address [address] [facility] 7 [place] [address] Care Team Providers Care Auto Body Service Mechanic Name Role Phone Roma Sharma MD Primary Care Provider + Yves Carlos Eduardo PharmD Unavailable [phone] SamiRonald dobson DMD Unavailable Roma Sharma MD Primary Care Provider + Reason for Visit * Reason Onset Date Comments Med Refill 10/04/2024 Encounter Details Date Type Department Care Team (Late st Contact Info) Description 10/04/2024 Refill [facility] [address] [place], [place] [phone] Roma Sharma MD 230 [place], [place] [phone] Type 2 diabetes mellitus with hyperglycemia, with long-term current use of insulin ([facility]) Social History Tobacco Use Types Packs/Day [...] the past 12 months, has t he [employer], gas, oil or water company threatened to [...] PM EDT documented as of this encounter Functional Status * Over the past 2 weeks, how often have you been bothered by any of the following problems? Question Answer Date of Assessment Author Patient Health Questionnaire-2 Score 6 09/22 10:25 AM Marvel Rosen * Little interest or pleasure in doing things Answer Date of Assessment Author Nearly every day 10/04/2024 10:25 AM Marvel Rosen * Feeling down, depressed, or hopeless Answer Date of Assessment Author Nearly every day 10/04/2024 10:25 AM Marvel Rosen * Trouble falling or staying asleep, or sleeping too much Answer Date of Assessment Author Nearly every day 10/04/2024 10:25 AM Marvel Rosen * Feeling tired or having little energy Answer Date of Assessment Author Not at all 10/04/2024 10:25 AM Marvel Rosen * Poor appetite or overeating Answer Date of Assessment Author Several days 10/04/2024 10:25 AM Marvel Rosen * Feeling bad about yourself - or that you are a failure or have let yourself or your family down Answer Date of Assessment Author Nearly every day 10/04/2024 10:25 AM Marvel Rosen * Trouble concentrating on things, such as reading the newspaper or watching television Answer Date of Assessment Author Nearly every day 10/04/2024 10:25 AM Marvel Rosen * Moving or speaking so slowly that other people could have noticed? Or the opposite - being so fidgety or restless that you have been moving around a lot more than usual. Answer Date of Assessment Author Several days 10/04/2024 10:25 AM Marvel Rosen * Thoughts that you would be better off or hurting yourself in some way Answer Date of Assessment Author Not at all 10/04/2024 10:25 AM Marvel Rosen * Patient Health Questionnaire-9 Score Answer Date of Assessment Author 17 10/04/2024 10:25 AM Marvel Rosen * How difficult have these problems made it for you to do your work, take care of things at home, or get along with other people? Answer Date of Assessment Author Very difficult 10/04/2024 10:25 AM Marvel Rosen * Over the last 2 weeks, how often have you been bothered by any of the following problems? Question Answer Date of Assessment Author Feeling nervous, anxious, or on edge 1 09/22 10:26 AM Marvel Rosen Not being able to stop or co ntrol worrying 3 10/04/2024 10:26 AM Marvel Rosen Worrying too much about diff erent things 3 10/04/2024 10:26 AM Marvel Rosen Trouble relaxing 3 10/04/2024 10:26 AM Marvel Rosen Being so restless that it is hard to sit still 0 10/04/2024 10:26 AM Marvel Rosen Becoming easily annoyed or irritable 1 09/22 10:26 AM Marvel Rosen Feeling afraid as if somethi ng awful might happen 3 10/04/2024 10:26 AM Smith Rosene RHONDA-7 Total Score 14 10/04/2024 10:26 AM EST Cyndee Urenaannasamina documented as of this encounter Plan of Treatment Upcoming Encounters Date Type Department Care Team (Late st Contact Info) Description 08/11/2025 9:00 AM EST Medication Management [facility] [address] [place] [address] Carlos Eduardo Marinelli PharmD [address] [place] [address] 08/25/2025 9:00 AM EST Office Visit [facility] [address] [place] [address] Roma Sharma MD [address] [place] [address] 09/30/2025 1:30 PM EST Office Visit [facility] OPTOMETRY [address] [place] [address] Pamela Dubois, OD [address] [place] [address] documented as of this encounter Goals Goal Patient Goal Type Associated Problems Recent Progress Patient-Stated? Author Blood Pressure < 140/90 Blood Pressure 128/58(2024 9:57 AM EDT) No Carlo sEduardo Marinelli PharmD Hemoglobin A1c < 7 Result Component 8.5( 9:58 AM EDT) No Carlos Eduardo Marinelli PharmD documented as of this encounter Visit Diagnoses Diagnosis Type 2 diabetes mellitus with hyperglycemia, with long-term current use of insulin ([facility]) documented in this encounter Additional Health Concerns Assessment Noted Time PHQ-9 Depression Total Score: 17 025 10:25 AM EST documented as of this encounter Care Teams Auto Body Service Mechanic Relationship Specialty Start Date End Date Roma Sharma MD [address] [place] [phone] PCP - General Internal Medicine 04/06/24 12/08/24 Roma Sharma MD [address] [place] [address] [phone] PCP - General Internal Medicine 01/04/25 Carlos Eduardo Marinelli, PharmD [address] [place] [address] [phone] Pharmacist Internal Medicine 05/19/24 Ronald Church DMD [address] [place] [address] [phone] Dental Ceramics Machine Operator 12/09/24 documented as of this encounter
--- OUTSIDE RECORDS SUMMARY | 2025-06-17 08:21 | XMS_ITS | Encounter Summary ---
Author Organization [employer] Address 75 [facility] 7t [place] [address] Care Team Providers Care Motion Study Analyst Name Role Phone Carlos Eduardo Marinelli PharmD Unavailable [phone] SamiRonald dobson DMD Unavailable Roma Sharma MD Primary Care Provider + Encounter Details Date Type Department Care Team (Latest Contact Info) Description 06/16/2025 Travel Social History Tobacco Use Types Packs/Day [...] Description 08/11/2025 9:00 AM EST Medication Management [facility] [address] [place] [phone] Carlos Eduardo Marinelli PharmD 230 [place] [address] 08/25/2025 9:00 AM EST Office Visit [facility] [address] [place] [address] Roma Sharma MD 230 [place] [address] 09/30/2025 1:30 PM EST Office Visit [facility] OPTOMETRY [address] [place] [address] Pamela Dubois, OD [address] [place] [address] documented as of this encounter Goals Goal [...] documented as of this encounter Care Teams Motion Study Analyst Relationship Specialty Start Date End Date Roma Sharma MD 230 [place], [place] [phone] PCP - General Internal Medicine 01/04/25 Carlos Eduardo Marienlli, Anant 230 [place], [place] [phone] Pharmacist Internal Medicine 05/19/24 Ronald Church DMD 230 [place], [place] [phone] Dental Wardrobe Supervisor 12/09/24 documented as of this encounter
--- OUTSIDE RECORDS SUMMARY | 2025-06-17 08:21 | XMS_ITS | Clinical Summary ---
Author Organization [facility] Address [address] [place] [address] Phone Care Team Providers Care Hotel Services Supervisor Name Role Phone Roma Sharma MD Primary Care Provider + [phone] Allergies No known active allergies Medications metFORMIN [...] Active TechLITE Pen Needle 32 gauge x 32 needle use to INJECT victoza and lantus [...] or swelling). 100 g 2 4 Active ketoconazole (NIZORAL) 2 % cream Apply topically 1 (one) time each day. 60 g 2 5 Active Active Problems Problem Noted Date Diagnosed [...] CT scan of brain on 12/2023 at [facility] in [place] showed diffuse WM changes See encounter on 04/07/24 Last Assessment & Plan: CT scan of brain on 12/2023 at [facility] in [place] showed diffuse WM changes Its likely related to custodial uncontrolled DM Continue ASA D/w patient re importance of taking meds as rx. Mixed hyperlipidemia 04/12/2024 Closed fracture of right low er extremity with routine healing 04/12/2024 Alcohol abuse 04/12/2024 Limited access to food 04/12/2024 Type 2 diabetes mellitus wit h hyperglycemia, with long-term current use of insulin ([facility] V24, [facility] V28) Encounters Date Type Department Care Team Description 03/28/2025 10:15 AM EDT Office Visit [facility] - [place] [address] [place] [phone] Momo Minor DPM Poorly controlled type 2 diabetes mellitus with neuropathy ([facility] V24, [facility] V28) (Primary Dx); PAD (peripheral artery disease) ([facility] V24); Hammertoes of both feet; Dermatophytosis, nail from Last 3 Months Social [...] - - Weight 87.5 kg (193 lb) 03/28/2025 9:32 AM EDT Height 167.6 cm (5' 5.98 ) 03/28/2025 9:32 AM ED T Body Mass Index 31.17 03/28/2025 9:32 AM EDT Plan of Treatment Upcoming Encounters Date Type Department Care Team (Late st Contact Info) Description 08/29/2025 10:00 AM EST Office Visit Orthopedic Surgery - [place] [phone] [phone] Momo Minor, DPBia [address] [address] Health Maintenance Due Date Last Done Comments Diabetes: Annual Foot Exam 1966 Diabetes: Annual Retina Eye Exam 1966 Hepatitis A Vaccines (1 of 2 - Risk 2-dose series) 1975 Zoster Vaccines (1 of 2) 2006 RSV Immunization Adult Patients (1 - Risk 60-74 years 1-dose series) 2016 Cholesterol Screening (Lipid Panel) 04/15/2024 Colorectal Cancer Screening: Colonoscopy 04/15/2024 Diabetes: Annual Urine Albumin-Creatinine Ratio (uACR) 04/15/2024 Falls Risk Assessment 04/15/2024 Hepatitis C Screening 04/15/2024 Medicare Annual Wellness Visit 04/15/2024 Social Influencers of Health Screening 04/15/2024 Depression Screening 09/22/2024 Diabetes: Annual GFR (Glomerular Filtration Rate) 01/07/2025 01/08/2024, 01/08/2024, 01/05/2024, Additional history exists Hypertension/CHF/CAD Annual BMP Blood Test 01/07/2025 01/08/2024, 01/08/2024, 01/05/2024, Additional history exists COVID-19 Vaccine (2 - 2023- season) 2025 06/17/2024 Influenza Vaccine (#1) 2025 , 08/09/2020, 06/25/2019, Additional history exists Diabetes: Blood Sugar Control Test (HGBA1C) 08/04/2025 02/01/2025, 07/30/2024, 12/31/2023, Additional history exists DTaP,Tdap,and Td Vaccines (3 - Td or Tdap) 06/15/2034 06/15/2024, 07/16/2015 Pneumococcal Vaccine: 50+ Years Completed 06/28/2024 Hepatitis [...] patient's age to complete this topic Insurance MEDICARE Member Subscriber Plan / Payer (Ef fective 2024-Present) Name:JAMARI VANESSA Relation to Subscriber:Self Name:Jamari Vanessa Payer ID:[id number] Group ID:[id number] Type:Not on file Address: [facility] [place] [address] Care Teams Hotel Services Supervisor Relationship Specialty Start Date End Date Roma Sharma MD [address] [place] [phone] PCP - General 05/26/24
--- OUTSIDE RECORDS SUMMARY | 2025-06-17 08:21 | XMS_ITS | Encounter Summary ---
Author Organization [employer] Address 75 [facility] 7 [place] [address] Care Team Providers Care Service Crew Leader Name Role Phone Roma Sharma MD Primary Care Provider + Yves Carlos Eduardo PharmD Unavailable [phone] SamiRonald dobson DMD Unavailable Roma Sharma MD Primary Care Provider + Reason for Visit * Reason Onset Date Comments Med Refill 09/30/2024 Encounter Details Date Type Department Care Team (Late st Contact Info) Description 09/30/2024 Refill [facility] [address] [place], [place] [phone] Roma Sharma MD [address] [place], [place] [phone] Type 2 diabetes mellitus with hyperglycemia, with long-term current use of insulin ([facility]) Social History Tobacco Use Types Packs/Day Years [...] the past 12 months, has t he [employer], gas, oil or water company threatened to [...] Description 08/11/2025 9:00 AM EST Medication Management [facility] [address] [place] [phone] Carlos Eduardo Marinelli, PharmD 230 [place] [address] 08/25/2025 9:00 AM EST Office Visit [facility] [address] [place] [phone] Roma Sharma MD 230 [place] [address] 09/30/2025 1:30 PM EST Office Visit [facility] OPTOMETRY [address] [place] [address] Pamela Dubois, OD [address] [place] [address] documented as of this encounter Goals Goal [...] with long-term current use of insulin ([facility]) documented in this encounter Care Teams Service Crew Leader Relationship Specialty Start Date End Date Roma Sharma MD [address] [place] [address] PCP - General Internal Medicine 04/06/24 12/08/24 Roma Sharma MD [address] [place] [address] PCP - General Internal Medicine 01/04/25 Carlos Eduardo Marinelli, PharmD [address] [place] [phone] Pharmacist Internal Medicine 05/19/24 Ronald Church DMD [address] [place] [phone] Dental Hand Method Lasting Machine Operator 12/09/24 documented as of this encounter
--- OUTSIDE RECORDS SUMMARY | 2025-06-17 08:21 | XMS_ITS | Encounter Summary ---
Author Organization [employer] Address [address] [place] [address] 7t [place] [address] Care Team Providers Care Aviation Technician Name Role Phone Roma Sharma MD Primary Care Provider + Yves Carlos Eduardo PharmD Unavailable [phone] SamiRonald dobson DMD Unavailable Roma Sharma MD Primary Care Provider + Reason for Visit * Reason Onset Date Comments Med Refill 09/30/2024 Encounter Details Date Type Department Care Team (Late st Contact Info) Description 09/30/2024 Refill [facility] [address] [place], [place] [phone] TarkaPamela, OD [address] [place] [address] 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 [...] the past 12 months, has t he [employer], gas, oil or water company threatened to [...] Description 08/11/2025 9:00 AM EST Medication Management [facility] [address] [place] [phone] Carlos Eduardo Marinelli, PharmD [address] [place] [address] 08/25/2025 9:00 AM EST Office Visit [facility] [address] [place] [address] Roma Sharma MD [address] [place] [address] 09/30/2025 1:30 PM EST Office Visit [facility] OPTOMETRY [address] [place] [address] Pamela Dubois, AUTUMN [address] [place] [address] documented as of this encounter Goals Goal Patient Goal Type Associated Problems Recent Progress Patient-Stated? 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
[2025-06-17 11:57] LABS: Alanine Aminotransferase 15 U/L (0-40); Albumin Level 4.5 g/dL (3.5-5.0); Alkaline Phosphatase 59 U/L (39-117); Anion Gap 12 (12-20); Aspartate Amino Transferase 21 U/L (5-37); Blood Urea Nitrogen 10 mg/dL (9-16); Calcium 8.7 mg/dL (8.4-10.2); Carbon Dioxide 29 mmol/L (22-29); Chloride 106 mmol/L (96-108); Cholesterol 97 mg/dL (<200); Estimated Glomerular Filt Rate > 60; HDL Cholesterol 34 mg/dL (>40); Potassium 3.9 mmol/L (3.3-5.1); Sodium 143 mmol/L (135-145); Total Protein 7.6 g/dL (6.5-8.0); Triglycerides 72 mg/dL (<150)
[2025-06-17 12:26] LABS: Vitamin B12 424 pg/mL (200-900)
[2025-06-17 12:49] LABS: Microalbum/Creatinine Ratio Ur 35.8 ug/mg cr (<30)
== END 2025-06-17 08:11 | disposition home or self-care (01) ==
LOC: HO.HHCL 08:10
PROVIDERS: PCP Internal Medicine; Visit Provider Internal Medicine
DX: E11.65 Type 2 diabetes mellitus with hyperglycemia (principal); Z79.4 Long term (current) use of insulin
CPT/HCPCS: 36415; 80048; 80061; 80076; 82043; 82570; 82607

== ENCOUNTER 2025-06-21 15:02 | Outpatient (AMB) | payer OTHER, SELFPAY ==
--- OUTSIDE RECORDS SUMMARY | 2019-04-30 06:57 | XMS_ITS | Continuity of Care Document ---
Author Organization [facility] Address [address] [place] [address] Phone Care Team Providers Care Levelman Name Role Phone A Telephone, Call Unavailable Unavailable Advance Directives Directive Yes / No Effective Date File Name No Information Encounters Encounter Description Practice Location Reason(s) For Visit Diagnoses Date Provider Providers Copied on Encounter [facility], [address] [place], [place], [id number], tel:[phone] [facility] No Information A Telephone Call. . Family History Family Member Type Diagnosis Age At Onset No Information Payers Payer name Insurance type Covered constitution party ID Authoriza tion(s) No Information Social History Type Description Quantity Date Captured Comments Sex Male Smoking Status No Information Chief Complaint And Reason For Visit No Information Reason For Referral Reason For Referral No Information History Of Present Illness Encounter Date Complaint History Of Prese nt Illness No Information Functional Status Date Functional Assessmen t No Information Instructions Date Instruction Additional Infor mation No Information Assessments Type Assessment Date No Information Patient Care Teams Name Effective Dates (start - stop) Status Members No Information
--- NOTE | 2025-06-21 15:05 | MHC.OFFVIS ---
Intake Visit Reasons: Plasma button bipolar- follow up Intake Note: Patient is present for PLASMA BIPOLAR BUTTON follow up Urology Medication:TAMSULOSIN,FINASTERIDE Antibiotic Allergy:NONE Blood Thinner:ASPIRIN PVR:0 MLS Feller Machine Operator Required: No Accompanied by: Self / Same As Patient Allergies No Known Allergies Allergy (Verified 06/21/25 15:06) HPI Comments Details: Jamari is a pleasant Slovak-speaking male. He is a patient of . He is seen for the following urologic conditions - lower urinary tract symptoms Slovak translation provided by qualified african studies professor Plasma button TURP 6 week follow-up Procedure date 05/16 PVR 0 cc Happy with current procedure Lower urinary tract symptoms Prior presentation with nocturia times 4-5, urinary urgency and frequency, weak stream Family history prostate cancer brother Recommend trial of combination therapy alpha-amber +5 AR Ultrasound with less than 40 g prostate PFSH Medical History Nocturia H/O urinary frequency H/O urinary retention Lower urinary tract symptoms (LUTS) Vitamin D deficiency, unspecified Essential (primary) hypertension White matter disease, unspecified Bilateral primary osteoarthritis of knee Alcohol abuse Mixed hyperlipidemia Type 2 diabetes mellitus with hyperglycemia Family History Brother Prostate cancer Mother Diabetes mellitus, type II Breast cancer in female Social History Patient Tobacco Use Status: Never used Tobacco Review of Systems Const Denies chills and Denies fever(s) Card Reports no additional complaints and Denies syncope Resp Denies cough GI Denies abdominal pain and Denies heartburn Reports as per HPI and Denies change in libido Neuro Denies syncope Psych Denies change in libido Endo Denies change in libido Physical Exam Const General: cooperative, healthy appearing, comfortable and no acute distress Orientation/consciousness: patient oriented x3 HEENT Face and sinus: Yes normal facial exam Mouth: moist mucous membranes Neck Neck: Yes normal visual inspection, Yes full ROM and Yes trachea midline Chest Chest palpation & inspection: normal inspection of the chest Resp Effort & Inspection: normal respiratory effort, able to speak in complete sentences and no respiratory distress GI Inspection: Yes normal to inspection Back/Spine/Pelvis Cervical Spine: normal cervical lordosis Thoracic/Lumbar Spine: thoracic and lumbar spine normal to inspection Skin General skin exam: no rashes or lesions noted Neuro General: patient oriented x3, gait normal, tone normal and moves all extremities Extrem General: Yes normal to inspection and Yes capillary refill normal Office Procedures Post Void Residual Post Residual Void Post Void Residual (PVR): 0 [id number] Void Residual by ultrasound Results AMB Urinalysis, Automated UA Leukoctes 0 Syed/uL Last Edit by ANNA Bates on 06/21/25 16:13 UA Nitrite Last Edit by Parvin Hernadez [facility] on 06/21/25 16:13 UA Urobilinogen 0.2 mg/dL Last Edit by Parvin Hernadez [facility] on 06/21/25 16:13 UA Protein 30 mg/dL Last Edit by Parvin Hernadez [facility] on 06/21/25 16:13 UA pH 6.0 Last Edit by Parvin Hernadez [facility] on 06/21/25 16:13 UA Blood 200 Milo/uL Last Edit by Parvin Hernadez [facility] on 06/21/25 16:13 UA Specific Blossom 1.020 Last Edit by Parvin Hernadez [facility] on 06/21/25 16:13 UA Ketone Last Edit by Parvin Hernadez [facility] on 06/21/25 16:13 UA Bilirubin 1 mg/dL Last Edit by Parvin Hernadez [facility] on 06/21/25 16:13 UA Glucose 1000 mg/dL Last Edit by Parvin Hernadez [facility] on 06/21/25 16:13 Results Reviewed Results Reviewed: Laboratory Last Values Urine pH (Auto) 6.0 06/21/25 16:13 Specific Blossom (Auto) 1.020 06/21/25 16:13 Urine Protein (Auto) 30 mg/dL 06/21/25 16:13 Glucose (UA)(Auto) 1000 mg/dL 06/21/25 16:13 Urine Blood (Auto) 200 Milo/uL 06/21/25 16:13 Urine Bilirubin (Auto) 1 mg/dL 06/21/25 16:13 Urine Urobilinogen (Auto) 0.2 mg/dL 06/21/25 16:13 Leukocyte Esterase (Auto) 0 Syed/uL 06/21/25 16:13 Assessment & Plan Assessment & Plan (1) Lower urinary tract symptoms (LUTS): Code(s): R39.9 - Unspecified symptoms and signs involving the genitourinary system Category: Medical (2) Incomplete emptying of bladder due to benign prostatic hyperplasia: Code(s): N40.1 - Benign prostatic hyperplasia with lower urinary tract symptoms; R33.9 - Retention of urine, unspecified Category: Medical Plan Six-month follow-up PSA Orders: Orders Prostate Specific Antigen 6 Months R39.9 - Unspecified symptoms and signs involving the genitourinary system AMB Post Void Residual by ultrasound 06/21/25 N40.1 - Benign prostatic hyperplasia with lower urinary tract symptoms, R33.9 - Retention of urine, unspecified AMB Urinalysis Automated 06/21/25 Z13.9 - Encounter for screening, unspecified Patient Instructions: This note is constructed using voice recognition software. While every effort has been made to ensure accuracy museum assistant errors may have been included. Imaging studies, laboratory and physical exam results were discussed and reviewed in detail. No major barriers to patient understanding were identified. An opportunity to ask questions regarding the treatment plan was provided. All questions were answered. The patient expressed understanding and agreement with the above treatment plan. The patient is aware they should contact our office by phone for worsening of their current condition or the appearance of new urologic symptoms. Compliance is encouraged with any medications and followup testing that is ordered. It is a privilege to participate in the urologic care of your patient. If you have any questions or concerns regarding treatment for the above conditions, or other urologic issues, please do not hesitate to contact me. The office telephone contact is [phone]. Sincerely, Dr William Cabrera MD, [facility] - Urology Compassionate Specialist Care for the Genitourinary System Coding Level of Care Code Est Pt Level 3 (85670) Complex EM visit Add On G2211 Diagnoses Lower urinary tract symptoms (LUTS) R39.9 Incomplete emptying of bladder due to benign prostatic hyperplasia N40.1; R33.9 CPT Codes Post Residual Void - PVR CPT Code: 85084-Tzgz Void Residual by ultrasound ([id number])
--- OUTSIDE RECORDS SUMMARY | 2025-06-21 16:26 | XMS_ITS | Encounter Summary ---
Author Organization [employer] Address [address] [facility] 7t [place] [address] Care Team Providers Care Consumer Safety Inspector Name Role Phone Roma Sharma MD Primary Care Provider + Carlos Eduardo Marinelli PharmD Unavailable [phone] Ronald Church DMD Unavailable Roma Sharma MD Primary Care Provider + Reason for Visit * Reason Onset Date Comments medical clearance 04/07/2024 Encounter Details Date Type Department Care Team (Late st Contact Info) Description 04/07/2024 Telephone [facility] D[facility] [address] [place] [address] Ronald Church, DMD [address] [place] [address] medical clearance Social History Tobacco Use Types [...] Description 08/11/2025 9:00 AM EST Medication Management [facility] MED[facility]INE [address] [place] [address] Carlos Eduardo Marinelli, PharmD 230 [place] [address] 08/25/2025 9:00 AM EST Office Visit [facility] [address] [place] [address] Roma Sharma MD 230 [place] [address] 09/30/2025 1:30 PM EST Office Visit [facility] OPTOMETRY [address] [place] [address] Pamela Dubois, OD [address] [place] [address] documented as of this encounter Visit Diagnoses Not on filedocumented in this encounter Care Teams Consumer Safety Inspector Relationship Specialty Start Date End Date Roma Sharma MD [address] [place] [address] [phone] PCP - General Internal Medicine 04/06/24 12/08/24 Roma Sharma MD [address] [place] [address] [phone] PCP - General Internal Medicine 01/04/25 Carlos Eduardo Marinelli, AaronD [address] [place] [address] [phone] Pharmacist Internal Medicine 05/19/24 Ronald Church DMD [address] [place] [address] [phone] Dental Lumber Driver 12/09/24 documented as of this encounter
--- OUTSIDE RECORDS SUMMARY | 2025-06-21 16:26 | XMS_ITS | Encounter Summary ---
Author Organization [employer] Address [address] [place] [address] 7t [place] [address] Care Team Providers Care Improvement Engineer Name Role Phone Roma Sharma MD Primary Care Provider + Yves Carlos Eduardo PharmD Unavailable [phone] SamiRonald dobson DMD Unavailable Roma Sharma MD Primary Care Provider + Reason for Visit * Reason Onset Date Comments Med Refill 09/30/2024 Encounter Details Date Type Department Care Team (Late st Contact Info) Description 09/30/2024 Refill [facility] OPTOMETRY [address] [place], [place] [phone] TarkaPamela, OD [address] [place] [address] 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 [...] the past 12 months, has t he [facility], gas, oil or water company threatened to [...] Description 08/11/2025 9:00 AM EST Medication Management [facility] MEDICINE [address] [place] [phone] Carlos Eduardo Marinelli, PharmD 230 [place] [address] 08/25/2025 9:00 AM EST Office Visit [facility] MED[facility] [address] [place] [phone] Roma Sharma MD 230 [place] [address] 09/30/2025 1:30 PM EST Office Visit [facility] OPTOMETRY 267 [place] [address] Pamela Dubois, AUTUMN 267 [place] [address] documented as of this encounter Goals Goal [...] eyes documented in this encounter Care Teams Improvement Engineer Relationship Specialty Start Date End Date Roma Sharma MD [address] [place] [address] PCP - General Internal Medicine 04/06/24 12/08/24 Roma Sharma MD [address] [place] [address] PCP - General Internal Medicine 01/04/25 Carlos Eduardo Marinelli, PharmD [address] [place] [phone] Pharmacist Internal Medicine 05/19/24 Ronald Church DMD [address] [place] [address] [phone] Dental Supervisor Commissary Production 12/09/24 documented as of this encounter
--- OUTSIDE RECORDS SUMMARY | 2025-06-21 16:26 | XMS_ITS | Clinical Summary ---
Author Organization 175 [facility] Address 175 [place] [address] Phone Care Team Providers Care Fence Repairman Name Role Phone Roma Sharma MD Primary Care Provider + [phone] Allergies No known active allergies Medications metFORMIN [...] CT scan of brain on 12/2023 at [facility] in [place] showed diffuse WM changes See encounter on 04/07/24 Last Assessment & Plan: CT scan of brain on 12/2023 at [facility] in [place] showed diffuse WM changes Its likely related to intermediate uncontrolled DM Continue ASA D/w patient re importance of taking meds as rx. Mixed hyperlipidemia 04/12/2024 Closed fracture of right low er extremity with routine healing 04/12/2024 Alcohol abuse 04/12/2024 Limited access to food 04/12/2024 Type 2 diabetes mellitus wit h hyperglycemia, with long-term current use of insulin ([facility] V24, [facility] V28) Encounters Date Type Department Care Team Description 03/28/2025 10:15 AM EDT Office Visit [facility] [place] [address] [place] [phone] Momo Minor DPM Poorly controlled type 2 diabetes mellitus with neuropathy ([facility] V24, [facility] V28) (Primary Dx); PAD (peripheral artery disease) ([facility] V24); Hammertoes of both feet; Dermatophytosis, nail [...] AM EST Office Visit Orthopedic Surgery - [place] [phone] [phone] Momo Minor, DPBia [address] [address] Health Maintenance Due Date Last Done Comments [...] Group ID:[id number] Type:Not on file Address: [facility] [place] [address] Care Teams Fence Repairman Relationship Specialty Start Date End Date Roma Sharma MD [address] [place] [phone] PCP - General 05/26/24
--- OUTSIDE RECORDS SUMMARY | 2025-06-21 16:26 | XMS_ITS | Encounter Summary ---
Author Organization [employer] Address 75 [facility] 7 [place] [address] Care Team Providers Care Machine Filler Shredder Name Role Phone Roma Sharma MD Primary Care Provider + Yves Carlos Eduardo PharmD Unavailable [phone] SamiRonald dobson DMD Unavailable Roma Sharma MD Primary Care Provider + Reason for Visit * Reason Onset Date Comments Med Refill 09/30/2024 Encounter Details Date Type Department Care Team (Late st Contact Info) Description 09/30/2024 Refill [facility] MED[facility] 230 [place], [place] [phone] Roma Sharma MD 230 [place], [place] [phone] Type 2 diabetes mellitus with hyperglycemia, with long-term current use of insulin ([facility]) Social History Tobacco Use Types Packs/Day [...] the past 12 months, has t he [employer], gas, oil or water company threatened to [...] Description 08/11/2025 9:00 AM EST Medication Management [facility] MED[facility]INE [address] [place] [address] Carlos Eduardo Marinelli, PharmD 230 [place] [address] 08/25/2025 9:00 AM EST Office Visit [facility] MED[facility] [address] [place] [phone] Roma Sharma MD 230 [place] [address] 09/30/2025 1:30 PM EST Office Visit [facility] OPTOMETRY 267 [place] [address] Pamela Dubois, OD 267 [place] [address] documented as of this encounter Goals Goal [...] hyperglycemia, with long-term current use of insulin (HCC) documented in this encounter Care Teams Machine Filler Shredder Relationship Specialty Start Date End Date Roma Sharma MD [address] [place] [address] PCP - General Internal Medicine 04/06/24 12/08/24 Roma Sharma MD [address] [place] [address] PCP - General Internal Medicine 01/04/25 Carlos Eduardo Marinelli, PharmD [address] [place] [phone] Pharmacist Internal Medicine 05/19/24 Ronald Church DMD [address] [place] [phone] Dental Bsw 12/09/24 documented as of this encounter
--- OUTSIDE RECORDS SUMMARY | 2025-06-21 16:26 | XMS_ITS | Encounter Summary ---
Author Organization [employer] Address 75 [facility] 7t [place] [address] Care Team Providers Care Teacher'S Assistant Name Role Phone Roma Sharma MD Primary Care Provider + Yves Carlos Eduardo PharmD Unavailable [phone] SamiRonald dobson DMD Unavailable Roma Sharma MD Primary Care Provider + Reason for Visit * Reason Onset Date Comments Med Refill 08/16/2024 Encounter Details Date Type Department Care Team (Late st Contact Info) Description 08/16/2024 Refill [facility] MED[facility] 230 [place], [place] [phone] Roma Sharma MD 230 [place], [place] [phone] Type 2 diabetes mellitus with hyperglycemia, with long-term current use of insulin ([facility]) Social History Tobacco Use Types [...] Description 08/11/2025 9:00 AM EST Medication Management [facility] [address] [place] [address] Carlos Eduardo Marinelli, PharmD 230 [place] [address] 08/25/2025 9:00 AM EST Office Visit [facility] [address] [place] [address] Roma Sharma MD 230 [place] [address] 09/30/2025 1:30 PM EST Office Visit [facility] OPTOMETRY [address] [place] [address] Pamela Dubois OD 267 [place] [address] documented as of this encounter Goals Goal [...] (HCC) documented in this encounter Care Teams Teacher'S Assistant Relationship Specialty Start Date End Date Roma Sharma MD 230 [place] [address] PCP - General Internal Medicine 04/06/24 12/08/24 Roma Sharma MD [address] [place], [place] [phone] PCP - General Internal Medicine 01/04/25 Carlos Eduardo Marinelli, PharmD [address] [place] [address] [phone] Pharmacist Internal Medicine 05/19/24 Ronald Church DMD 230 [place], [place] [phone] Dental Recycling Operator 12/09/24 documented as of this encounter
--- OUTSIDE RECORDS SUMMARY | 2025-06-21 16:26 | XMS_ITS | Encounter Summary ---
Author Organization [employer] Address 75 [facility] 7t [place] [address] Care Team Providers Care Brass Wind Instruments Tube Bender Name Role Phone Carlos Eduardo Marinelli PharmD Unavailable [phone] Ronald Church DMD Unavailable Roma Sharma MD Primary Care Provider + Encounter Details Date Type Department Care Team (Late st Contact Info) Description 06/17/2025 Orders Only [facility] MEDICINE 230 [place], [place] [phone] Roma Sharma MD 230 [place], [place] [phone] Social History Tobacco Use Types Packs/Day Years [...] Management [facility] MEDICINE [address] [place] [phone] Carlos Eduardo Marinelli, PharmD 230 [place] [address] 08/25/2025 9:00 AM EST Office Visit [facility] MEDICINE [address] [place] [phone] Roma Sharma MD 230 [place] [address] 09/30/2025 1:30 PM EST Office Visit [facility] OPTOMETRY [address] [place] [address] Pamela Dubois, OD [address] [place] [address] documented as of this encounter Goals Goal Patient Goal Type Associated Problems Recent Progress Patient-Stated? Author Blood Pressure < 140/90 Blood Pressure 128/58(2024 9:57 AM EDT) No Carlos Eduardo Marinelli, PharmD Hemoglobin A1c < 7 Result Component 8.5( 9:58 AM EDT) No Carlos Eduardo Marinelli, Anant documented as of this encounter Procedures Procedure Name Priority Date/Time Associated Diagnosis Comments ALBUMIN, RANDOM URINE W/CREATININE Routine 06/17/2025 8:14 AM EDT VITAMIN B12 Routine 06/17/2025 8:14 AM EDT HEPATIC FUNCTION PANEL Routine 06/17/2025 8:14 AM EDT LIPID PANEL, STANDARD Routine 06/17/2025 8:14 AM EDT BASIC METABOLIC PANEL Routine 06/17/2025 8:14 AM EDT documented in this encounter Results * (ABNORMAL) Albumin, Random Urine W/Creatinine (06/17/2025 8:14 AM EDT) Creatinine, Urine 89.15 mg/dL [facility] Microalbumin Urine 32.0 mg/L [facility] Microalbum Creatinine Ratio Ur 35.8(H) <30 ug/mg cr [facility] Comment:Albumin/Creatinine R atio Reference Ranges: Normal: < 30 ug/mg creatinine Microalbuminuria: 30 - 300 ug/mg creatinineClinical Albuminuria: > 300 ug/mg creatinine 06/17/2025 8:14 AM EDT 06/17/2025 11:57 AM EDT us Roma Sharma MD LAB URINE ORDERABLES Fin al Result [facility] [address] [place], [place] [phone] * Vitamin B12 (06/17/2025 8:14 AM EDT) Vitamin B12 424 200 - 900 pg/mL [facility] Comment:NORMAL 200-900 PG/ML INDETERMINATE 160-199 PG/ML DEFICIENT < 160 PG/ML 06/17/2025 8:14 AM EDT 06/17/2025 11:21 AM EDT Roma Sharma MD LAB BLOOD ORDERABLES Fin al Result Performing Organization Address [facility] Co de Phone Number [facility] [address] [place] [address] [phone] * (ABNORMAL) Lipid Panel, Standard (06/17/2025 8:14 AM EDT) Triglycerides 72 <150 mg/dL [facility] Comment:Desirable Triglyceri de: less than 150 mg/dLBorderline High Triglyceride 150-199 mg/dLHigh Triglyceride: 200-499 mg/dLVery High Triglyceride: greater than or equal to 5OO mg/dL Cholesterol 97 <200 mg/dL [facility] Comment:Desirable Cholestero l: less than 200 mg/dLBorderline High Cholesterol: 200-239 mg/dLHigh Cholesterol: greater than 239 mg/dL LDL Cholesterol Calculated 49 <100 mg/dL [facility] Comment:Desirable LDL: less than 100 mg/dLNear Optimal/Above Optimal LDL: 110- 129 mg/dLBorderline High LDL: 130-159 mg/dLHigh LDL: 160-189 mg/dLVery High LDL: greater than or equal to 190 mg/dL HDL Cholesterol 34(L) >40 mg/dL [facility] Comment:Desirable HDL: great er than 40 mg/dL Note: This HDL assay may give artificially low results in patients with liver disease. 06/17/2025 8:14 AM EDT 06/17/2025 11:21 AM EDT us Roma Sharma MD LAB BLOOD ORDERABLES Fin al Result Performing Organization Address [facility] Co de Phone Number [facility] [address] [place] [address] [phone] * (ABNORMAL) Basic Metabolic Panel (06/17/2025 8:14 AM EDT) Sodium 143 135 - 145 mmol/L [facility] Potassium 3.9 3.3 - 5.1 mmol/L [facility] Chloride 106 96 - 108 mmol/L [facility] Carbon Dioxide 29 22 - 29 mmol/L [facility] Anion Gap 12 12 - 20 [facility] Urea Nitrogen (BUN) 10 9 - 16 mg/dL [facility] Creatinine, Serum 0.75 0.5 - 1.4 mg/dL [facility] Estimated Glomerular Filt Rate >60 [facility] Comment:Chronic Kidney Disea se: Estimated GFR < 60 mL/min/1.18i0Weylny Kidney Disease: Estimated GFR < 15 mL/min/1.73m2 Glucose 139(H) 60 - 115 mg/dL [facility] Calcium 8.7 8.4 - 10.2 mg/dL [facility] 06/17/2025 8:14 AM EDT 06/17/2025 11:21 AM EDT us Roma Sharma MD LAB BLOOD ORDERABLES Fin al Result [facility] [address] [place] [phone] * Hepatic Function Panel (06/17/2025 8:14 AM EDT) Bilirubin, Total 0.4 0.0 - 1.0 mg/dL [facility] Bilirubin, Direct 0.2 0.0 - 0.5 mg/dL [facility] Aspartate Amino Transferase 21 5 - 37 U/L [facility] Alanine Aminotransferase 15 0 - 40 U/L [facility] Total Protein 7.6 6.5 - 8.0 g/dL [facility] Albumin Level 4.5 3.5 - 5.0 g/dL [facility] Alkaline Phosphatase 59 39 - 117 U/L [facility] 06/17/2025 8:14 AM EDT 06/17/2025 11:21 AM EDT us Roma Sharma MD LAB BLOOD ORDERABLES Fin al Result [facility] [address] [place] [address] [phone] documented in this encounter Visit Diagnoses Not on filedocumented in this encounter Additional Health Concerns Assessment Noted Time PHQ-9 Depression Total Score: 12 025 10:44 AM EDT documented as of this encounter Care Teams Brass Wind Instruments Tube Bender Relationship Specialty Start Date End Date Roma Sharma MD [address] [place] [phone] PCP - General Internal Medicine 01/04/25 Carlos Eduardo Marinelli, AaronD [address] [place] [phone] Pharmacist Internal Medicine 05/19/24 Ronald Church DMD [address] [place] [address] Dental Bakery Pastry Internship 12/09/24 documented as of this encounter
--- OUTSIDE RECORDS SUMMARY | 2025-06-21 16:26 | XMS_ITS | Encounter Summary ---
Author Organization [employer] Address [address] [place] [address] 7 [place] [address] Care Team Providers Care Ice Cream Freezer Helper Name Role Phone Carlos Eduardo Marinelli PharmD Unavailable [phone] LynnetteRonald DMD Unavailable Roma Sharma MD Primary Care Provider + Reason for Visit * Reason Comments Med Refill Encounter Details Date Type Department Care Team ([facility] st Contact Info) Description 02/18/2025 Refill [facility] MEDICINE 230 [place], [place] [phone] Carlos Eduardo Marinelli, PharmD 230 [place] [address] Type 2 diabetes mellitus with hyperglycemia, with long-term current use of insulin ([facility]) Social History Tobacco Use Types Packs/Day Years [...] 9:00 AM EST Medication Management [facility] MEDICINE [address] [place] [phone] Carlos Eduardo Marinelli, PharmD 230 [place] [address] 08/25/2025 9:00 AM EST Office Visit [facility] MEDICINE [address] [place] [phone] Roma Sharma MD 230 [place] [address] 09/30/2025 1:30 PM EST Office Visit [facility] OPTOMETRY [address] [place] [address] Pamela Dubois, AUTUMN 267 [place] [address] documented as of this encounter Goals Goal [...] of insulin (HCC) documented in this encounter Additional Health Concerns Assessment Noted Time PHQ-9 Depression Total Score: 12 025 10:44 AM EDT documented as of this encounter Care Teams Ice Cream Freezer Helper Relationship Specialty Start Date End Date Roma Sharma MD [address] [place] [phone] PCP - General Internal Medicine 01/04/25 Carlos Eduardo Marinelli PharmD [address] [place] [phone] Pharmacist Internal Medicine 05/19/24 Ronald Church DMD [address] [place] [phone] Dental Sledger 12/09/24 documented as of this encounter
--- OUTSIDE RECORDS SUMMARY | 2025-06-21 16:26 | XMS_ITS | Encounter Summary ---
Author Organization [employer] Address 75 [facility] 7t [place] [address] Care Team Providers Care Geopolitics Teacher Name Role Phone Roma Sharma MD Primary Care Provider + Yves Carlos Eduardo PharmD Unavailable [phone] SamiRonald dobson DMD Unavailable Roma Sharma MD Primary Care Provider + Reason for Visit * Reason Onset Date Comments Med Refill 09/23/2024 Encounter Details Date Type Department Care Team (Late st Contact Info) Description 09/23/2024 Refill [facility] MED[facility]INE [address] [place], [place] [phone] Roma Sharma MD 230 [place], [place] [phone] Type 2 diabetes mellitus with hyperglycemia, with long-term current use of insulin ([facility]) Social History Tobacco Use Types [...] Description 08/11/2025 9:00 AM EST Medication Management [facility] MED[facility] [address] [place] [address] Carlos Eduardo Marinelli, PharmD 230 [place] [address] 08/25/2025 9:00 AM EST Office Visit [facility] MED[facility] [address] [place] [phone] Roma Sharma MD 230 [place] [address] 09/30/2025 1:30 PM EST Office Visit [facility] OPTOMETRY [address] [place] [address] Pamela Dubois OD 267 [place] [address] documented as of this encounter Goals Goal [...] (HCC) documented in this encounter Care Teams Geopolitics Teacher Relationship Specialty Start Date End Date Roma Sharma MD 230 [place] [address] PCP - General Internal Medicine 04/06/24 12/08/24 Roma Sharma MD [address] [place], [place] [phone] PCP - General Internal Medicine 01/04/25 Carlos Eduardo Marinelli, PharmD [address] [place] [address] [phone] Pharmacist Internal Medicine 05/19/24 Ronald Church DMD [address] [place], [place] [phone] Dental Geotechnical Field Technician 12/09/24 documented as of this encounter
--- OUTSIDE RECORDS SUMMARY | 2025-06-21 16:26 | XMS_ITS | Encounter Summary ---
Author Organization [employer] Address 75 [facility] 7 [place] [address] Care Team Providers Care Application Lead Name Role Phone Roma Sharma MD Primary Care Provider + Yves Carlos Eduardo PharmD Unavailable [phone] SamiRonald dobson DMD Unavailable Roma Sharma MD Primary Care Provider + Reason for Visit * Reason Onset Date Comments Med Refill 10/04/2024 Encounter Details Date Type Department Care Team (Late st Contact Info) Description 10/04/2024 Refill [facility] 230 [place], [place] [phone] Roma Sharma MD 230 [place], [place] [phone] Type 2 diabetes mellitus with hyperglycemia, with long-term current use of insulin ([facility]) Social History Tobacco Use [...] the past 12 months, has t he [employer], gas, oil or water company threatened to [...] Total Score 14 10/04/2024 10:26 AM EST [employer] documented as of this encounter Plan of Treatment Upcoming Encounters Date Type Department Care Team (Late st Contact Info) Description 08/11/2025 9:00 AM EST Medication Management [facility] [address] [place] [address] Carlos Eduardo Marinelli PharmD [address] [place] [address] 08/25/2025 9:00 AM EST Office Visit [facility] [address] [place] [address] Roma Sharma MD [address] [place] [address] 09/30/2025 1:30 PM EST Office Visit [facility] OPTOMETRY [address] [place] [address] Pamela Dubois, OD 267 [place] [address] documented as of this encounter Goals Goal [...] documented as of this encounter Care Teams Application Lead Relationship Specialty Start Date End Date Roma Sharma MD [address] [place] [phone] PCP - General Internal Medicine 04/06/24 12/08/24 Roma Sharma MD [address] [place] [address] [phone] PCP - General Internal Medicine 01/04/25 Carlos Eduardo Marinelli, Anant [address] [place] [address] [phone] Pharmacist Internal Medicine 05/19/24 Ronald Church DMD [address] [place] [address] [phone] Dental Revenue Manager 12/09/24 documented as of this encounter
--- OUTSIDE RECORDS SUMMARY | 2025-06-21 16:27 | XMS_ITS | Clinical Summary ---
Author Organization [employer] Address [address] [facility] 7t [place] [address] Care Team Providers Care Digital Marketing Manager Name Role Phone Carlos Eduardo Marinelli PharmD Unavailable [phone] SamiRonlad dobson DMD Unavailable Roma Sharma MD Primary [...] 2 tablets (10mg) by mouth at bedtime Active glucose blood (FreeStyle Precision Tavo Test) test stripIndications :Type 2 diabetes mellitus with hyperglycemia, with long-term current use of insulin ([facility]) Use to check blood sugar up to three times daily as needed for hypoglycemia or sensor failure. 100 each 11 025 2025 Active Lancets 33G miscIndications: Type 2 diabetes mellitus with hyperglycemia, with long-term current use of insulin ([facility]) Use to check blood sugar up to three times daily as needed for hypoglycemia or sensor failure. 100 each Active Lancet Devices (Lancing Device) miscIndications: Type 2 diabetes mellitus with hyperglycemia, with long-term current use of insulin ([facility]) Use as directed to test blood sugar. 1 each 025 Active aspirin (Aspirin Adult Low Dose) 81 MG EC tabletIndication s:Uncontrolled type 2 diabetes mellitus with hyperglycemia (HCC) Take 1 tablet by mouth daily 90 tablet 3 025 Active atorvastatin (Lipitor) 40 MG tabletIndication s:Uncontrolled type 2 diabetes mellitus with hyperglycemia (HCC) Take 1 tablet (40 mg) by mouth [...] hyperglycemia, with long-term current use of insulin ([facility]) Inject 20 units under the skin once daily 15 mL 025 Active empagliflozin-me tFORMIN ER (Synjardy XR) 12.5-1000 MG 24 hr tabletIndication s:Type 2 diabetes mellitus with hyperglycemia, with long-term current use of insulin ([facility]) Take 1 tablet by mouth 2 times daily. 60 tablet 5 025 Active glucose 4 g chewable tablet Chew 4 tablets (16 g) if needed for low blood sugar. 30 tablet 11 07/25/2 025 Active Continuous Glucose Sensor (FreeStyle Rob 3 Sensor) miscIndications: Type 2 diabetes mellitus with hyperglycemia, with long-term current use of insulin (HCC) USE DIRECTED TO TEST BLOOD SUGAR. CHANGE EVERY 14 DAYS . 2 each 025 Active Dulaglutide (Trulicity) 0.75 MG/0.5ML solution auto-injectorInd ications:Type 2 diabetes mellitus with hyperglycemia, with long-term current use of insulin ([facility]) Inject 0.75 mg under the skin 1 (one) time per week. 2 mL 5 025 Active Continuous Glucose Sensor (FreeStyle Rob 3 Sensor) miscIndications: Type 2 diabetes mellitus with hyperglycemia, with long-term current use of insulin ([facility]) Apply 1 Device topically every 14 (fourteen) [...] hyperglycemia, with long-term current use of insulin ([facility]) INJECT ONE PEN (=0.75MG) SUBCUTANEOUSLY ONCE A WEEK DIRECTED 2 mL 5 025 2024 Discontinued(R eorder (will not trigger [...] discussed with him going to groups including [facility] meetings on Tuesdays and at [facility] building He feels safe at home and is [...] with loved ones who and relocation from [place] to [place] a year ago as triggers. Jamari finds support in the community. 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 Pt reports receiving support from his daughter [...] as part of treatment. Moderate episode of recurren t major depressive disorder (CMS/HCC) 07/30/2024 Assessment & Plan (11/29/2024 11:44 AM [...] lives in a third floor apartment in [place] and is looking to move to a lower floor near his adult children in [place]. Pt reports having diabetes as a chronic disease. The passing of his mother and sister years ago is a trigger for Jamari and leads to his depressive mood. Pt reports being able to manage and cope on his own. He attends a Day Program in [facility] Friday through Friday and reports having social support from the community, his SP[employer]ISH SPEAKING BABYSITTER and his family. clinician engaged patient with active/reflective listening. Reviewed and assessed for risk, current stressors and protective factors using open-ended questions. Pt was connected with OP services but stopped attending session about two months ago. He declined OP referral and will contact clinician if he changes his mind regarding MH services. Provided information for [facility] centers, [facility] help line and [facility]. clinician will provide additional support during next [...] with loved ones who and relocation from [place] to [place] a year ago as triggers. Jamari finds support in the community. 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 Pt reports receiving support from his daughter [...] I gave him information on psychotherapist from [email or web address] at [facility], so he can call and [...] CT scan of brain on 12/2023 at [facility] in [place] showed diffuse WM changes See encounter on 04/07/24 Assessment & Plan (04/22/2024 3:15 PM EDT): CT scan of brain on 12/2023 at [facility] in [place] showed diffuse WM changes Its likely related to jail uncontrolled DM Continue ASA D/w patient re [...] adjust sliding scale as needed, patient has Speedmente 3 system Add Metformin XR 750/d, will monitor GFR in 4-5w Refer to [facility] clinic and nutrition DTaP. Assessment & Plan (04/06/2024 4:29 PM EDT): Uncontrolled. Recently back on meds, not fully compliant Continue on lantus 40u/d, order labs and fu with me in 3-4w to adjust meds Counseled re more frequent low calorie/carb meals, he has info re local pantry in [place], refer to [facility]. Check fgstk 2x daily Encouraged physical activity [...] pulso We discussed re community resources including [employer] and AUD program here at [facility], AA meetings and reach out to [...] Abnormal EKG 12/31/2023 Acute hypoxic respiratory failure (CMS/HCC) 12/21 Acute metabolic encephalopathy 12/31/2023 JEN (acute kidney injury) 12/31/2023 Diabetes mellitus 12/31/2023 DKA (diabetic ketoacidosis) 12/31/2023 Genital infection 12/31/2023 Hyperphosphatemia 12/31/2023 Hypothermia 12/31/2023 Pterygium eye, bilateral 12/31/2023 Sepsis (CMS/HCC) 12/31/2023 Aspiration pneumonia of both lower lobes due to regurgitated food (CMS/HCC) 12/12/2023 History of BPH 12/12/2023 Lactic acidosis 12/12/2023 Macrocytosis 12/12/2023 Benign essential hypertension 12/12/2023 Type 2 diabetes mellitus wit h hypoglycemia without coma, with long-term current use of insulin 12/12/2023 Special screening for malignant neoplasms, colon 02/08/2019 Overview (04/05/2025): Added automatically from request for surgery [id number] S/P left knee arthroscopy 08/08/2017 Old complex [...] Encounters Date Type Department Care Team Description 06/17/2025 Orders Only [facility] [address] [place] [address] Roma Sharma MD 06/16/2025 Travel 06/15/2025 9:30 AM EDT Office Visit [facility] [address] [place] [address] Ronald Church DMD 05/26/2025 2:30 PM EDT Office Visit [facility] [address] [place] [address] Ronald Church DMD 05/24/2025 Refill [facility] [address] [place] [address] Roma Sharma MD Type 2 diabetes mellitus with hyperglycemia, with long-term current use of insulin ([facility]) 05/16/2025 Orders Only GENERIC EXTERNAL DATA DEPARTMENT Provider, Generic External Data 05/13/2025 Travel 04/15/2025 Travel 04/05/2025 9:00 AM EDT Office Visit [facility] [address] [place] [address] Ronald Church DMD 03/29/2025 10:00 AM EDT Office Visit [facility] [address] [place] [address] Jennie León from Last 3 Months Immunizations [...] Description 08/11/2025 9:00 AM EST Medication Management [facility] [address] [place] [phone] Carlos Eduardo Marinelli, PharmD [address] [place] [address] 08/25/2025 9:00 AM EST Office Visit [facility] [address] [place] [address] Roma Sharma MD [address] [place] [address] 09/30/2025 1:30 PM EST Office Visit [facility] [address] [place] [address] Pamela Dubois, OD [address] [place] [address] Health Maintenance Due Date Last Done Comments CT Colonography 1956 Colonoscopy 1956 Colorectal Cancer Screening 1956 FIT DNA/Cologuard 1956 FIT 1956 FOBT 1956 Sigmoidoscopy 1956 Alcohol/Substance Use Screening 1968 RSV Patients and Patients Aged 60 years or older (1 - Risk 60-74 years 1-dose series) 2016 Diabetes: Foot Exam 04/06/2025 04/06/2024, 04/06/2024, 04/06/2024, Additional history exists SDOH Screening 04/06/2025 04/06/2024 COVID-19 Vaccine (2 - season) 2025 06/17/2024 Influenza Vaccine (#1) 2025 , 08/09/2020, 06/25/2019, Additional history exists Depression Monitoring 06/01/2025 11/29/2024, 025 Zoster Vaccines (2 of 2) 06/10/2025 04/15/2025 Diabetes: Hemoglobin A1C 08/13/2025 025, 02/01/2025, 11/05/2024, Additional history exists Dental Prophylaxis 09/30/2025 03/29/2025, 0 09/28/2024, 04/20/2024 Dental Oral Exam 10/07/2025 04/05/2025, 02/12/2024 Tobacco Screening 06/15/2026 06/15/2025 Diabetes: Urine Protein Screening 06/17/2026 06/17/2025, 04/09/2024 Lipid Panel 06/17/2026 06/17/2025, 04/09/2024 Eye Exam 07/27/2026 07/27/2024, 01/2024, 07/27/2024, Additional [...] VITAMIN B12 Routine 06/17/2025 8:14 AM EDT LIPID PANEL, STANDARD Routine 06/17/2025 8:14 AM EDT BASIC METABOLIC PANEL Routine 06/17/2025 8:14 AM EDT HEPATIC FUNCTION PANEL Routine 06/17/2025 8:14 AM EDT DENTURE ADJUSTMENT Routine 06/15/2025 9: 30 AM EDT DENTURE ADJUSTMENT Routine 05/26/2025 2: 30 PM EDT BASIC METABOLIC PANEL, FASTING Routine 05/16/2025 7:17 AM EDT CBC Routine 05/16/2025 7:17 AM EDT GLUCOSE, WHOLE BLOOD Routine 05/16/2025 6:30 AM EDT POCT GLYCATED HEMOGLOBIN, TOTAL Routine 05/13/2025 9:58 AM EDT Type 2 diabetes mellitus with hyperglycemia, with long-term current use of insulin ([facility]) CASE PRESENTATION, DETAILED AND EXTENSIVE TREATMENT PLANNING [...] long-term current use of insulin ([facility]) PANORAMIC RADIOGRAPHIC IMAGE Routine 02/12/2024 10:00 AM EDT from Last 3 Months or Most Recently Relevant to Health Maintenance Results * (ABNORMAL) Albumin, Random Urine W/Creatinine (06/17/2025 8:14 AM EDT) Creatinine, Urine 89.15 mg/dL [facility] Microalbumin Urine 32.0 mg/L H [facility] Microalbum Creatinine Ratio Ur 35.8(H) <30 ug/mg cr [facility] Comment:Albumin/Creatinine R atio Reference Ranges: Normal: < 30 ug/mg creatinine Microalbuminuria: 30 - 300 ug/mg creatinineClinical Albuminuria: > 300 ug/mg creatinine 06/17/2025 8:14 AM EDT 06/17/2025 11:57 AM EDT us Roma Sharma MD LAB URINE ORDERABLES Fin al Result [facility] [address] [place] [address] [phone] * Vitamin B12 (06/17/2025 8:14 AM EDT) Vitamin B12 424 200 - 900 pg/mL [facility] Comment:NORMAL 200-900 PG/ML INDETERMINATE 160-199 PG/ML DEFICIENT < 160 PG/ML 06/17/2025 8:14 AM EDT 06/17/2025 11:21 AM EDT us Roma Sharma MD LAB BLOOD ORDERABLES Fin al Result Performing Organization Address [facility]/ZIP Co de Phone Number [facility] [address] [place] [phone] * Hepatic Function Panel (06/17/2025 8:14 AM EDT) Bilirubin, Total 0.4 0.0 - 1.0 mg/dL [facility] Bilirubin, Direct 0.2 0.0 - 0.5 mg/dL [facility] Aspartate Amino Transferase 21 5 - 37 U/L [facility] Alanine Aminotransferase 15 0 - 40 U/L [facility] Total Protein 7.6 6.5 - 8.0 g/dL [facility] Albumin Level 4.5 3.5 - 5.0 g/dL [facility] Alkaline Phosphatase 59 39 - 117 U/L [facility] 06/17/2025 8:14 AM EDT 06/17/2025 11:21 AM EDT Roma Sharma MD LAB BLOOD ORDERABLES Fin al Result [facility] [address] [place] [phone] * (ABNORMAL) Lipid Panel, Standard (06/17/2025 8:14 AM EDT) Triglycerides 72 <150 mg/dL [facility] Comment:Desirable Triglyceri de: less than 150 mg/dLBorderline High Triglyceride 150-199 mg/dLHigh Triglyceride: 200-499 mg/dLVery High Triglyceride: greater than or equal to 5OO mg/dL Cholesterol 97 <200 mg/dL [facility] Comment:Desirable Cholestero l: less than 200 mg/dLBorderline High Cholesterol: 200-239 mg/dLHigh Cholesterol: greater than 239 mg/dL LDL Cholesterol Calculated 49 <100 mg/dL [facility] Comment:Desirable LDL: less than 100 mg/dLNear Optimal/Above Optimal LDL: 110- 129 mg/dLBorderline High LDL: 130-159 mg/dLHigh LDL: 160-189 mg/dLVery High LDL: greater than or equal to 190 mg/dL HDL Cholesterol 34(L) >40 mg/dL [facility] Comment:Desirable HDL: great er than 40 mg/dL Note: This HDL assay may give artificially low results in patients with liver disease. 06/17/2025 8:14 AM EDT 06/17/2025 11:21 AM EDT us Roma Sharma MD LAB BLOOD ORDERABLES Fin al Result [facility] [address] [place] [phone] * (ABNORMAL) Basic Metabolic Panel (06/17/2025 8:14 AM EDT) Sodium 143 135 - 145 mmol/L [facility] Potassium 3.9 3.3 - 5.1 mmol/L [facility] Chloride 106 96 - 108 mmol/L [facility] Carbon Dioxide 29 22 - 29 mmol/L [facility] Anion Gap 12 12 - 20 [facility] Urea Nitrogen (BUN) 10 9 - 16 mg/dL [facility] Creatinine, Serum 0.75 0.5 - 1.4 mg/dL [facility] Estimated Glomerular Filt Rate >60 [facility] Comment:Chronic Kidney Disea se: Estimated GFR < 60 mL/min/1.88l7Ngvxfy Kidney Disease: Estimated GFR < 15 mL/min/1.73m2 Glucose 139(H) 60 - 115 mg/dL [facility] Calcium 8.7 8.4 - 10.2 mg/dL [facility] 06/17/2025 8:14 AM EDT 06/17/2025 11:21 AM EDT Roma Sharma MD LAB BLOOD ORDERABLES Fin al Result [facility] [address] [place] [phone] * (ABNORMAL) Basic Metabolic Panel, Fasting (05/16/2025 7:17 AM EDT) Sodium 142 135 - 145 mmol/L [facility] Potassium 3.7 3.3 - 5.1 mmol/L [facility] Chloride 108 96 - 108 mmol/L [facility] Carbon Dioxide 26 22 - 29 mmol/L [facility] Anion Gap 12 12 - 20 [facility] Urea Nitrogen (BUN) 13 9 - 16 mg/dL [facility] Creatinine, Serum 0.75 0.5 - 1.4 mg/dL [facility] Creatinine Clr Calc Pharmacy 95.9 [facility] Comment:eGFR (calculated fro m the MDRD study equation) and eCrCl(calculated from the Cockcroft-Gault equation) are based ondifferent parameters and may not yield comparable results.If eCrCl result is absurd, please check patient'sheight/weight. Estimated Glomerular Filt Rate >60 [facility] Comment:Chronic Kidney Disea se: Estimated GFR < 60 mL/min/1.36r6Nrhytg Kidney Disease: Estimated GFR < 15 mL/min/1.73m2 Glucose Fasting 136(H) 60 - 99 mg/dL [facility] Comment:A fasting glucose of 126 mg/dl or greater on more than oneoccasion is considered diagnostic of diabetes. Calcium 8.5 8.4 - 10.2 mg/dL [facility] 05/16/2025 7:17 AM EDT 05/16/2025 7:20 AM EDT us Generic External Data Provider LAB BLOOD ORDERAB LES Final Result Performing Organization Address [facility]/ZIP Co de Phone Number [facility] [address] [place] [address] [phone] * (ABNORMAL) CBC (05/16/2025 7:17 AM EDT) White Blood Count 5.6 4.8 - 10.8 X10*3/uL [facility] Red Blood Count 5.18 4.60 - 5.80 X10*6/uL [facility] Hemoglobin 11.6(L) 14.0 - 18.0 g/dl [facility] Hematocrit 38.1(L) 42.0 - 52.0 % [facility] Mean Corpuscular Volume 73.6(L) 80.0 - 98.0 fL [facility] Mean Corpuscular Hemoglobin 22.4(L) 27.0 - 33.0 pg [facility] Mean Corpuscular HGB Conc 30.4(L) 31.0 - 36.0 g/dl [facility] Red Cell Distribution Width 17.5(H) 11.0 - 16.0 % [facility] Platelet Count 203 160 - 400 X10*3/uL [facility] Mean Platelet Volume 11.1 9.4 - 12.4 fL [facility] NRBC Pct Auto 0.0 0.0 - 0.2 /100WBC [facility] NRBC Abs Auto 0.000 0.0 - 0.012 X10*3/uL [facility] 05/16/2025 7:17 AM EDT 05/16/2025 7:20 AM EDT us Generic External Data Provider LAB BLOOD ORDERAB LES Final Result Performing Organization Address City/[facility]/ZIP Co de Phone Number [facility] [address] [place] [phone] * (ABNORMAL) Glucose, Whole Blood (05/16/2025 6:30 AM EDT) Glucose, Whole Blood 144(H) 60 - 115 mg/dL [facility] Comment:METER #: [id number] 05/16/2025 6:30 AM EDT 05/16/2025 6:35 AM EDT Generic External Data Provider LAB BLOOD ORDERAB LES Final Result [facility] [address] [place] [address] [phone] * (ABNORMAL) POCT HGB A1C (05/13/2025 9:58 AM EDT) Pathologist [facility] Hemoglobin A1C 8.5(A) 4.0 - 5.7 % QC Media Lot # [id number] Lot# Expiration Date Blood 05/13/2025 9:58 AM EDT Roma Sharma MD POINT OF CARE TEST ENTER /EDIT ORDERABLES Final Result * Hepatitis Panel, General (04/09/2024 9:20 AM EDT) Pathologist [facility] Hepatitis A IgM Nonreactive Nonreactive [facility] Comment:IgM antibodies to HEARD V not detected; does not exclude earlyacute or recovered HAV infection. ~Hepatitis B Surface Antibody NONREACTIVE Nonreactive [facility] Comment:Nonreactive: < 8.00 mIU/mL Hepatitis B Core Antibody Nonreactive Nonreactive [facility] Hepatitis C Antibody Nonreactive Nonreactive [facility] Comment:Antibodies to HCV no t detected; does not exclude early acuteHCV infection. Hepatitis B Surface Ag Negative Negative [facility] Blood 04/09/2024 9:20 AM EDT 04/09/2024 10:40 AM EDT Roma Sharma MD LAB BLOOD ORDERABLES Fin al Result [facility] [address] [place] [address] [phone] from Last 3 Months or Most Recently Relevant to Health Maintenance Insurance [facility] USP OPTIONS (HMO D-SNP) ANNE LERNER [id number] DENTAL [facility] Care Teams Digital Marketing Manager Relationship Specialty Start Date End Date Roma Sharma MD [address] [place] [phone] PCP - General Internal Medicine 01/04/25 Carlos Eduardo Marinelli PharmD [address] [place] [phone] Pharmacist Internal Medicine 05/19/24 Ronald Church DMD [address] [place] [phone] Dental Buffing Machine Tender 12/09/24
--- OUTSIDE RECORDS SUMMARY | 2025-06-21 16:27 | XMS_ITS | Encounter Summary ---
Author Organization [employer] Address [address] [facility] 7t [place] [address] Care Team Providers Care Field Artillery Basic Name Role Phone Carlos Eduardo Marinelli PharmD Unavailable [phone] SamiRonald dobson DMD Unavailable Roma Sharma [...] Medication Management [facility] [address] [place] [phone] Carlos Eduardo Marinelli PharmD [address] [place] [address] 08/25/2025 9:00 AM EST Office Visit [facility] [address] [place] [phone] Roma Sharma MD [address] [place] [address] 09/30/2025 1:30 PM EST Office Visit [facility] [address] [place] [address] Pamela Dubois, OD [address] [place] [address] documented as of this encounter Goals Goal [...] documented as of this encounter Care Teams Field Artillery Basic Relationship Specialty Start Date End Date Roma Sharma MD [address] [place], [place] [phone] PCP - General Internal Medicine 01/04/25 Carlos Eduardo Marinelli, Anant [address] [place], [place] [phone] Pharmacist Internal Medicine 05/19/24 Ronald Church DMD [address] [place], [place] [phone] Dental Observation Assistant 12/09/24 documented as of this encounter
== END 2025-06-21 16:10 | disposition home or self-care (01) ==
LOC: HO.HUSH 15:02
PROVIDERS: PCP Internal Medicine; Visit Provider Urology
DX: Z13.9 Encounter for screening, unspecified (principal)

== ENCOUNTER → 2025-06-21 15:02 | Outpatient (BNVA) | payer OTHER, SELFPAY | PROVIDERS: PCP Internal Medicine; Visit Provider Urology | DX: N40.1 Benign prostatic hyperplasia with lower urinary tract symptoms (principal); R33.9 Retention of urine, unspecified; R39.9 Unspecified symptoms and signs involving the genitourinary system | CPT/HCPCS: 51798; 81003; 99212 ==

== ENCOUNTER 2025-08-25 09:50 | Outpatient (REF) | payer OTHER, SELFPAY ==
--- OUTSIDE RECORDS SUMMARY | 2025-08-25 09:00 | XMS_ITS | Encounter Summary ---
Author Organization [employer] Address [address] [place] [address] 7t [place] [address] Care Team Providers Care Director Of Family Service Center Name Role Phone Carlos Eduardo Marinelli PharmD Unavailable [phone] Ronald Church DMD Unavailable Roma Sharma MD Primary Care Provider + Encounter Details Date Type Department Care Team (Late st Contact Info) Description 08/25/2025 9:00 AM EST Office Visit [facility] [address] [place] [address] Roma Sharma MD [address] [place] [address] Microcytic anemia (Primary Dx); Type 2 diabetes mellitus with hyperglycemia, with long-term current use of insulin (HCC); Overweight; Primary hypertension; Mixed hyperlipidemia; Screen for STD (sexually transmitted disease); No vaccination-pt refuse; Dietary counseling; Exercise counseling Social History Tobacco Use Types Packs/Day Years Used Date Smoking Tobacco: Never Smokeless Tobacco: Never Alcohol Use Standard Drinks/Week Comments Not Currently 1 (1 standard drink = 0.6 oz pure alcohol) Oca, Used to drink heavily 6 pack/d until 12/2023 for the previous 15y Alcohol Answer Date Recorded How often do you have a drink containing alcohol ? 0 08/25/2025 Average Number of Drinks Not on file 025 How often do you have six or more drinks on one occasion? 0 08/25/2025 Depression Answer Date Recorded Patient Health Questionnaire-9 [...] Sign Reading Time Taken Comments Blood Pressure 152/78 08/25/2025 9:25 AM EST Pulse 79 08/25/2025 9:25 AM EST Temperature 36.2 C (97.2 F) 08/25/2025 9:25 AM EST Respiratory Rate 12 08/25/2025 9:25 AM EST Oxygen Saturation 100% 08/25/2025 9:25 AM EST Inhaled Oxygen Concentration - - Weight 70.9 kg (156 lb 3.2 oz) 08/25/2025 9:25 A M EST Height 167.6 cm (5' 6 ) 08/25/2025 9:25 AM EST Body Mass Index 25.21 08/25/2025 9:25 AM EST documented in this encounter Functional Status * Over the last 2 weeks, how often have you been bothered by any of the following problems? Question Answer Date of Assessment Author Feeling nervous, anxious, or on edge 0 08/25/2025 10:01 AM Emma Roger MA Not being able to stop or co ntrol worrying 0 08/25/2025 10:01 AM Emma Roger MA Worrying too much about diff erent things 0 08/25/2025 10:01 AM Emma Roger MA Trouble relaxing 0 08/25/2025 10:01 AM Emma Roger MA Being so restless that it is hard to sit still 0 08/25/2025 10:01 AM Emma Roger MA Becoming easily annoyed or irritable 0 08/25/2025 10:01 AM Emma Roger MA Feeling afraid as if somethi ng awful might happen 0 08/25/2025 10:01 AM Emma Roger MA RHONDA-7 Total Score 0 08/25/2025 10:01 AM Emma Roger MA documented as of this encounter Miscellaneous Notes * Assessment & Plan Note - Roma Sharma MD - 08/25/2025 9:50 AM EST Associated Problem(s): Microcytic anemia - Mild microcytic anemia noted. No evidence of gastrointestinal bleeding or other acute causes. Colonoscopy is pending, referred earlier this year. - Ordered repeat blood tests for anemia. Reinforced need to complete colonoscopy. Will review results when available. - Consider hematology referral if nay other abn result. * Assessment & Plan Note - Roma Sharma MD - 08/25/2025 9:49 AM EST Associated Problem(s): Type 2 diabetes mellitus with hyperglycemia, with long- term current use of insulin (HCC) - He's off Insulin, dc from med lsit - Type 2 diabetes mellitus is currently well controlled with Trulicity and Sinjardi. Weight loss attributed to medication and dietary changes. No recent episodes of hypoglycemia except one in the past two months. No evidence of diabetic retinopathy; follow-up for glaucoma suspect scheduled every 6 months. - Continue Trulicity 0.75 mcg weekly and Sinjardi as currently prescribed. Keep A1c between 7 and 7.5 due to age. - Reinforce portion control and dietary habits. - Check fgstk bid and PRN sxs - follow-up in 3 months. - Risks and side effects: Discussed potential side effects of Trulicity, including decreased appetite, constipation, and vomiting. Patient tolerating medication well. documented in this encounter Plan of Treatment Upcoming Encounters Date Type Department Care Team (Late st Contact Info) Description 09/30/2025 1:30 PM EST Office Visit [facility] [address] [place], [place] [phone] Pamela Dubois, OD [address] [place] [address] 10/20/2025 9:00 AM EST Medication Management [facility] [address] [place] [address] Carlos Eduardo Marinelli, PharmD [address] [place] [address] Scheduled Orders Name Type Priority Associated Diagnoses Orde r Schedule Ferritin Lab Routine Microcytic anemia Expected: 08/25/2025, Expires: 08/25/2026 Vitamin B12/Folate, Serum Panel Lab Routine Microcytic anemia Expected: 08/25/2025, Expires: 08/25/2026 HIV-1/2 Antigen and Antibodies, Fourth Generation, with Reflexes Lab Routine Microcytic anemia Screen for STD (sexually transmitted disease) Expected: 08/25/2025 (Approximate), Expires: 08/25/2026 Hepatitis Panel, General Lab Routine Screen for STD (sexually transmitted disease) Expected: 08/25/2025 (Approximate), Expires: 08/25/2026 Syphilis Screen Lab Routine Screen for STD (sexually transmitted disease) Expected: 08/25/2025 (Approximate), Expires: 08/25/2026 Chlamydia/N. Gonorrhoeae RNA, TMA, Urogenitial Microbiology Routine Screen for STD (sexually transmitted disease) Ordered: 08/25/2025 documented as of this encounter Goals Goal Patient Goal Type Associated Problems Recent Progress Patient-Stated? Author Blood Pressure < 140/90 Blood Pressure 152/78(2024 9:25 AM EST) Carlos Eduardo Armas PharmD Hemoglobin A1c < 7 Result Component 7.5( 9:37 AM EST) Carlos Eduardo Armas PharmD Help patients manage their type 2 diabetes Care Plan Help patients manage their type 2 diabetes Roma Hand MD Weekly blood pressure task Care Plan Weekly blood pressure task Roma Hand MD Help patients manage their type 2 diabetes Care Plan Help patients manage their type 2 diabetes Roma Hand MD Patient has chronic kidney disease Care Plan Patient has chronic kidney disease Roma Hand MD Weekly blood pressure task Care Plan Weekly blood pressure task Roma Hand MD Patient has chronic kidney disease Care Plan Patient has chronic kidney disease Roma Hand MD documented as of this encounter Procedures Procedure Name Priority Date/Time Associated Diagnosis Comments RETICULOCYTE COUNT Routine 08/25/2025 9: 54 AM EST Microcytic anemia POCT GLUCOSE Routine 08/25/2025 9:27 AM EST Type 2 diabetes mellitus with hyperglycemia, with long-term current use of insulin (HCC) documented in this encounter Results * (ABNORMAL) Reticulocyte Count (08/25/2025 9:54 AM EST) Reticulocytes Absolute 0.056 0.026 - 0.095 X10*6/uL [facility] Immature Retic Fraction 8.6 2.3 - 13.4 % [facility] Retic HGB Equivalent 27.4(L) 30.0 - 35.0 pg [facility] Reticulocyte Percent 1.0 0.5 - 1.8 % [facility] Blood Venous blood specimen / Unknown 08/25/2025 9:54 AM EST 08/25/2025 11:11 AM EST us Roma Sharma MD LAB BLOOD ORDERABLES Fin al Result [facility] [address] [place] [address] [phone] * POCT Glucose (08/25/2025 9:27 AM EST) Glucose Blood, POC 168 60 - 200 mg/dL QC Media Lot # [id number] Lot# Expiration Date Blood Capillary blood specimen / Unknown 08/25/2025 9:27 AM EST Roma Sharma MD POINT OF CARE TEST ENTER /EDIT ORDERABLES Final Result documented in this encounter Visit Diagnoses Diagnosis Microcytic anemia- Primary Unspecified iron deficiency anemia Type 2 diabetes mellitus with hyperglycemia, with long-term current use of insulin (HCC) Overweight Primary hypertension Unspecified essential hypertension Mixed hyperlipidemia Screen for STD (sexually transmitted disease) Screening examination for venereal disease No vaccination-pt refuse Vaccination not carried out because of patient refusal Dietary counseling Dietary surveillance and counseling Exercise counseling documented in this encounter Additional Health Concerns Active Problems Noted Date Diagnosed Date Help patients manage their type 2 diabetes 08/25 Weekly blood pressure task 08/25/2025 Help patients manage their type 2 diabetes 08/25 Patient has chronic kidney disease 08/25/2025 Weekly blood pressure task 08/25/2025 Patient has chronic kidney disease 08/25/2025 Assessment Noted Time PHQ-9 Depression Total Score: 12 025 10:44 AM EDT documented as of this encounter Care Teams Director Of Family Service Center Relationship Specialty Start Date End Date Roma Sharma MD [address] [place] [address] PCP - General Internal Medicine 01/04/25 Carlos Eduardo Marinelli, AaronD [address] [place], [place] Pharmacist Internal Medicine 05/19/24 Ronald Church DMD [address] [place], [place] Dental Diversity Intern 12/09/24 documented as of this encounter
[2025-08-25 11:22] LABS: Reticulocytes Absolute 0.056 X10*6/uL (0.026-0.095)
--- OUTSIDE RECORDS SUMMARY | 2025-08-25 11:26 | XMS_ITS | Encounter Summary ---
Author Organization [employer] Address [address] [facility] 7t [place] [address] Care Team Providers Care Sales And Marketing Agent Name Role Phone Roma Sharma MD Primary Care Provider + Carlos Eduardo Marinelli PharmD Unavailable [phone] Ronald Church DMD Unavailable Roma Sharma MD Primary Care Provider + Reason for Visit * Reason Onset Date Comments medical clearance 04/07/2024 Encounter Details Date Type Department Care Team (Late st Contact Info) Description 04/07/2024 Telephone [facility] [address] [place] [address] Ronald Church, DMD [address] [place] [address] medical clearance Social History Tobacco Use Types [...] Miscellaneous Notes * Telephone Encounter - Araceli Hermes - 04/07/2024 1:33 PM EDT Daughter of [...] Description 09/30/2025 1:30 PM EST Office Visit [facility] [address] [place] [address] Pamela Dubois, AUTUMN [address] [place] [address] 10/20/2025 9:00 AM EST Medication Management [facility] [address] [place] [address] Carlos Eduardo Marinelli, AaronD [address] [place] [address] documented as of this encounter Visit Diagnoses Not on filedocumented in this encounter Care Teams Sales And Marketing Agent Relationship Specialty Start Date End Date Roma Sharma MD [address] [place] [address] PCP - General Internal Medicine 04/06/24 12/08/24 Roma Sharma MD [address] [place] [address] PCP - General Internal Medicine 01/04/25 Carlos Eduardo Marinelli, AaronD [address] [place] [address] Pharmacist Internal Medicine 05/19/24 Ronald Church DMD [address] [place] [address] Dental Resistor Tester 12/09/24 documented as of this encounter
--- OUTSIDE RECORDS SUMMARY | 2025-08-25 11:26 | XMS_ITS | Encounter Summary ---
Author Organization [employer] Address [address] [facility] 7 [place] [address] Care Team Providers Care Automotive Generator Repairer Name Role Phone Roma Sharma MD Primary Care Provider + Yves Carlos Eduardo PharmD Unavailable [phone] SamiRonald dobson DMD Unavailable Roma Sharma MD Primary Care Provider + Reason for Visit * Reason Onset Date Comments Med Refill 10/04/2024 Encounter Details Date Type Department Care Team (Late st Contact Info) Description 10/04/2024 Refill [facility] [address] [place], [place] [phone] Roma Sharma MD [address] [place], [place] [phone] Type 2 diabetes mellitus with hyperglycemia, with long-term current use of insulin ([facility]) Social History Tobacco Use Types [...] the past 12 months, has t he [employer], gas, oil or water company threatened to [...] Total Score 14 10/04/2024 10:26 AM EST UrenaCyndee mercedesannasamina documented as of this encounter Plan of Treatment Upcoming Encounters Date Type Department Care Team (Late st Contact Info) Description 09/30/2025 1:30 PM EST Office Visit [facility] [address] [place] [address] Pamela Dubois, OD [address] [place] [address] 10/20/2025 9:00 AM EST Medication Management [facility] [address] [place] [address] Carlos Eduardo Marinelli PharmD [address] [place] [address] documented as of this encounter Goals Goal Patient Goal Type Associated Problems Recent Progress Patient-Stated? Author Blood Pressure < 140/90 Blood Pressure 152/78(2024 9:25 AM EST) No Carlos Eduardo Marinelli PharmD Hemoglobin A1c < 7 Result Component 7.5( 9:37 AM EST) No Carlos Eduardo Marinelli PharmD documented as of this encounter Visit Diagnoses Diagnosis Type 2 diabetes mellitus with hyperglycemia, with long-term current use of insulin (HCC) documented in this encounter Additional Health Concerns Assessment Noted Time PHQ-9 Depression Total Score: 17 025 10:25 AM EST documented as of this encounter Care Teams Automotive Generator Repairer Relationship Specialty Start Date End Date Roma Sharma MD [address] [place] [phone] PCP - General Internal Medicine 04/06/24 12/08/24 Roma Sharma MD [address] [place] [address] PCP - General Internal Medicine 01/04/25 Carlos Eduardo Marinelli PharmD [address] [place] [address] Pharmacist Internal Medicine 05/19/24 Ronald Church DMD [address] [place] [address] [phone] Dental Ash Kier Boiler 12/09/24 documented as of this encounter
--- OUTSIDE RECORDS SUMMARY | 2025-08-25 11:26 | XMS_ITS | Encounter Summary ---
Author Organization [employer] Address [address] [facility] 7t [place] [address] Care Team Providers Care Director Of Vital Statistics Name Role Phone Roma Sharma MD Primary Care Provider + Yves Carlos Eduardo PharmD Unavailable [phone] SamiRonald dobson DMD Unavailable Roma Sharma MD Primary Care Provider + Reason for Visit * Reason Onset Date Comments Med Refill 08/16/2024 Encounter Details Date Type Department Care Team (Late st Contact Info) Description 08/16/2024 Refill [facility] [address] [place], [place] [phone] Roma Sharma MD [address] [place], [place] [phone] Type 2 diabetes mellitus with hyperglycemia, with long-term current use of insulin ([facility]) Social History Tobacco Use Types [...] Description 09/30/2025 1:30 PM EST Office Visit [facility] [address] [place] [address] Tarka, Pamela, OD [address] [place] [address] 10/20/2025 9:00 AM EST Medication Management [facility] [address] [place] [address] Carlos Eduardo Marinelli PharmD [address] [place] [address] documented as of this encounter Goals Goal [...] (HCC) documented in this encounter Care Teams Director Of Vital Statistics Relationship Specialty Start Date End Date Roma Sharma MD [address] [place] [address] PCP - General Internal Medicine 04/06/24 12/08/24 Roma Sharma MD [address] [place], [place] [phone] PCP - General Internal Medicine 01/04/25 Carlos Eduardo Marinelli, AaronD [address] [place], [place] [phone] Pharmacist Internal Medicine 05/19/24 Ronald Church DMD [address] [place], [place] [phone] Dental Office Asst 12/09/24 documented as of this encounter
--- OUTSIDE RECORDS SUMMARY | 2025-08-25 11:26 | XMS_ITS | Encounter Summary ---
Author Organization [employer] Address [address] [place] [address] 7t [place] [address] Care Team Providers Care Restorative Art Embalmer Name Role Phone Roma Sharma MD Primary Care Provider + Yves Carlos Eduardo PharmD Unavailable [phone] SamiRonald dobson DMD Unavailable Roma Sharma MD Primary Care Provider + Reason for Visit * Reason Onset Date Comments Med Refill 09/30/2024 Encounter Details Date Type Department Care Team (Late st Contact Info) Description 09/30/2024 Refill [facility] [address] [place], [place] [phone] TarkaPamela, OD [address] [place] [address] 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 [...] the past 12 months, has t he [employer], gas, oil or water [employer] threatened to shut off services in your [...] Description 09/30/2025 1:30 PM EST Office Visit [facility] [address] [place] [address] Pamlea Dubois, OD [address] [place] [address] 10/20/2025 9:00 AM EST Medication Management [facility] [address] [place] [address] Carlos Eduardo Marinelli, PharmD [address] [place] [address] documented as of this encounter Goals Goal Patient Goal Type Associated Problems Recent Progress Patient-Stated? 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
--- OUTSIDE RECORDS SUMMARY | 2025-08-25 11:26 | XMS_ITS | Encounter Summary ---
Author Organization [employer] Address [address] [facility] 7t [place] [address] Care Team Providers Care Chief Science Officer Name Role Phone Roma Sharma MD Primary Care Provider + Yves Carlos Eduardo PharmD Unavailable [phone] SamiRonald dobson DMD Unavailable Roma Sharma MD Primary Care Provider + Reason for Visit * Reason Onset Date Comments Med Refill 09/23/2024 Encounter Details Date Type Department Care Team (Late st Contact Info) Description 09/23/2024 Refill [facility] [address] [place], [place] [phone] Roma Sharma MD [address] [place], [place] [phone] Type 2 diabetes mellitus with hyperglycemia, with long-term current use of insulin ([facility]) Social History Tobacco Use Types [...] 1:30 PM EST Office Visit [facility] [address] [place] [address] Tarka, Pamela, OD [address] [place] [address] 10/20/2025 9:00 AM EST Medication Management [facility] [address] [place] [address] Carlos Eduardo Marinelli PharmD [address] [place] [address] documented as of this encounter Goals Goal [...] (HCC) documented in this encounter Care Teams Chief Science Officer Relationship Specialty Start Date End Date Roma Sharma MD [address] [place] [address] PCP - General Internal Medicine 04/06/24 12/08/24 Roma Sharma MD [address] [place], [place] [phone] PCP - General Internal Medicine 01/04/25 Carlos Eduardo Marinelli, AaronD [address] [place], [place] [phone] Pharmacist Internal Medicine 05/19/24 Ronald Church DMD [address] [place], [place] [phone] Dental Matzo Forming Machine Operator 12/09/24 documented as of this encounter
--- OUTSIDE RECORDS SUMMARY | 2025-08-25 11:26 | XMS_ITS | Encounter Summary ---
Author Organization [employer] Address [address] [facility] 7t [place] [address] Care Team Providers Care Wood Boring Machine Operator Name Role Phone Carlos Eduardo Marinelli PharmD Unavailable [phone] SamiRonald dobson DMD Unavailable Roma Sharma MD Primary Care Provider + Encounter Details Date Type Department Care Team (Latest Contact Info) Description 08/25/2025 Travel Social History Tobacco Use Types Packs/Day [...] Roger [place] documented as of this encounter Plan of Treatment Upcoming Encounters Date Type Department Care Team (Late st Contact Info) Description 09/30/2025 1:30 PM EST Office Visit [facility] [address] [place] [address] Pamela Dubois, OD [address] [place] [address] 10/20/2025 9:00 AM EST Medication Management [facility] [address] [place] [address] Carlos Eduardo Marinelli PharmD [address] [place] [address] documented as of this encounter Goals Goal Patient Goal Type Associated Problems Recent Progress Patient-Stated? Author Blood Pressure < 140/90 Blood Pressure 152/78(2024 9:25 AM EST) No Carlos Eduardo Marinelli PharmD Hemoglobin A1c < 7 Result Component 7.5( 9:37 AM EST) No Carlos Eduardo Marinelli PharmD Help patients manage their type 2 diabetes Care Plan Help patients manage their type 2 diabetes No Roma Sharma MD Weekly blood pressure task Care Plan Weekly blood pressure task No Roma Sharma MD Help patients manage their type 2 diabetes Care Plan Help patients manage their type 2 diabetes No Roma Sharma MD Patient has chronic kidney disease Care Plan Patient has chronic kidney disease No Roma Sharma MD Weekly blood pressure task Care Plan Weekly blood pressure task No Roma Sharma MD Patient has chronic kidney disease Care Plan Patient has chronic kidney disease No Roma Sharma MD documented as of this encounter Visit Diagnoses Not on filedocumented in this encounter Additional Health Concerns Active [...] documented as of this encounter Care Teams Wood Boring Machine Operator Relationship Specialty Start Date End Date Roma Sharma MD [address] [place] [address] PCP - General Internal Medicine 01/04/25 Carlos Eduardo Marinelli, AaronD [address] [place], [place] [phone] Pharmacist Internal Medicine 05/19/24 Ronald Church DMD [address] [place], [place] [phone] Dental Ampoule Filler And Sealer 12/09/24 documented as of this encounter
--- OUTSIDE RECORDS SUMMARY | 2025-08-25 11:26 | XMS_ITS | Encounter Summary ---
Author Organization [employer] Address [address] [facility] 7 [place] [address] Care Team Providers Care Coastal Tug Mate Name Role Phone Roma Sharma MD Primary Care Provider + Yves Carlos Eduardo PharmD Unavailable [phone] SamiRonald dobson DMD Unavailable Roma Sharma MD Primary Care Provider + Reason for Visit * Reason Onset Date Comments Med Refill 09/30/2024 Encounter Details Date Type Department Care Team (Late st Contact Info) Description 09/30/2024 Refill [facility] [address] [place], [place] [phone] Roma Sharma MD [address] [place], [place] [phone] Type 2 diabetes mellitus with hyperglycemia, with long-term current use of insulin ([facility]) Social History Tobacco Use Types Packs/Day Years [...] the past 12 months, has t he [employer], gas, oil or water [employer]cope threatened to shut off services in your [...] Description 09/30/2025 1:30 PM EST Office Visit [facility] [address] [place] [address] Tarmark Pamela, OD [address] [place] [address] 10/20/2025 9:00 AM EST Medication Management [facility] [address] [place] [address] Carlos Eduardo Marinelli, Anant [address] [place] [address] documented as of this encounter Goals Goal Patient Goal Type Associated Problems Recent Progress Patient-Stated? Author Blood Pressure < 140/90 Blood Pressure 152/78(2024 9:25 AM EST) No Carlos Eduardo Marinelli PharmD Hemoglobin A1c < 7 Result Component 7.5( 9:37 AM EST) No Marinelli, Carlos Eduardo, PharmD documented as of this encounter Visit Diagnoses Diagnosis Type 2 diabetes mellitus with hyperglycemia, with long-term current use of insulin (HCC) documented in this encounter Care Teams Coastal Tug Mate Relationship Specialty Start Date End Date Roma Sharma MD [address] [place] [address] PCP - General Internal Medicine 04/06/24 12/08/24 Roma Sharma MD [address] [place] [address] PCP - General Internal Medicine 01/04/25 Carlos Eduardo Marinelli, PharmD [address] [place] [phone] Pharmacist Internal Medicine 05/19/24 Ronald Church DMD [address] [place] [phone] Dental Youth Career Specialist 12/09/24 documented as of this encounter
--- OUTSIDE RECORDS SUMMARY | 2025-08-25 11:26 | XMS_ITS | Clinical Summary ---
Author Organization [facility] Address [address] [place] [address] Phone Care Team Providers Care Coat Finisher Name Role Phone Roma Sharma MD Primary Care Provider + [phone] Allergies No known active allergies Medications metFORMIN [...] (50 mg total) by mouth daily. 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 Mixed hyperlipidemia 04/12/2024 Closed fracture of right low er extremity with routine healing 04/12/2024 Alcohol abuse 04/12/2024 Limited access to food 04/12/2024 Type 2 diabetes mellitus wit h hyperglycemia, with long-term current use of insulin ([facility] V24, CMS/HCC V28) Social History Tobacco Use Types Packs/Day Years [...] AM EST Office Visit Orthopedic Surgery - [place] [id number] [phone] Momo Minor, FRACISCO [address] [address] Health Maintenance Due Date Last Done Comments Colorectal Cancer Screening: Colonoscopy 1956 Diabetes: Annual Foot Exam 1966 Diabetes: Annual Retina Eye Exam 1966 Hepatitis A Vaccines (1 of 2 - Risk 2-dose series) 1975 RSV Immunization Adult Patients (1 - Risk 50-74 years 1-dose series) 2006 Zoster Vaccines (1 of 2) 2006 Cholesterol Screening (Lipid Panel) 04/15/2024 Diabetes: Annual Urine Albumin-Creatinine Ratio (uACR) 04/15/2024 Falls Risk Assessment 04/15/2024 Hepatitis C Screening 04/15/2024 Medicare Annual Wellness Visit 04/15/2024 Social Influencers of Health Screening 04/15/2024 Depression Screening 09/22/2024 Diabetes: Annual GFR (Glomerular Filtration Rate) 01/07/2025 01/08/2024, 01/08/2024, 01/05/2024, Additional history exists Hypertension/CHF/CAD Annual BMP Blood Test 01/07/2025 01/08/2024, 01/08/2024, 01/05/2024, Additional history exists COVID-19 Vaccine (2 - season) 2025 06/17/2024 [...] patient's age to complete this topic Insurance [employer] MEDICARE Member Subscriber Plan / Payer (Ef fective 2024-Present) Name:JAMARI VANESSA Relation to Subscriber:Self Name:Jamari Vanessa Payer ID:[id number] Group ID:[id number] Type:Not on file Address: [address] [facility] [place] [address] Care Teams Coat Finisher Relationship Specialty Start Date End Date Roma Sharma MD [address] [place] [phone] PCP - General 05/26/24
--- OUTSIDE RECORDS SUMMARY | 2025-08-25 11:26 | XMS_ITS | Encounter Summary ---
Author Organization [facility] Address [address] [place] [address] [address] [place] [address] Care Team Providers Care Pick Out Hand Name Role Phone Carlos Eduardo Marinelli PharmD Unavailable [phone] Ronald Church DMD Unavailable Roma Sharma MD Primary Care Provider + Reason for Visit * Reason Onset Date Comments Chart prep 08/24/2025 Encounter Details Date Type Department Care Team ([facility] st Contact Info) Description 08/24/2025 Telephone [facility] [address] [place] [address] Roma Sharma MD [address] [place] [address] Chart prep Social History Tobacco Use Types [...] encounter Miscellaneous Notes * Telephone Encounter - Emma Hyman [place] - 08/24/2025 4:02 PM EST Chart Prep Labs: done Images: done Referrals: complete Vaccines due: Covid and Flu Screenings: colonoscopy and foot exam Overdue care gaps: Glucose, SBIRT, SDOH, and PHQ-9 A1C due October documented in this encounter Plan of Treatment Upcoming Encounters Date Type Department Care Team (Late st Contact Info) Description 09/30/2025 1:30 PM EST Office Visit [facility] [address] [place] [address] Pamela Dubois, OD [address] [place] [address] 10/20/2025 9:00 AM EST Medication Management [facility] [address] [place] [address] Carlos Eduardo Marinelli PharmD [address] [place] [address] documented as of this encounter Goals Goal [...] documented as of this encounter Care Teams Pick Out Hand Relationship Specialty Start Date End Date Roma Sharma MD [address] [place] [address] PCP - General Internal Medicine 01/04/25 Carlos Eduardo Marinelli, PharmD [address] [place] [address] Pharmacist Internal Medicine 05/19/24 Ronald Church DMD [address] [place] [address] [facility] [place] 12/09/24 documented as of this encounter
--- OUTSIDE RECORDS SUMMARY | 2025-08-25 11:26 | XMS_ITS | Encounter Summary ---
Author Organization [facility] Address [address] [place] [address] [address] [place] [address] Care Team Providers Care Yellow Pages Space Salesperson Name Role Phone Carlos Eduardo Marinelli PharmD Unavailable [phone] Lynnette Ronald DMD Unavailable Roma Sharma MD Primary Care Provider + Reason for Visit * Reason Comments Med Refill Encounter Details Date Type Department Care Team ([facility] st Contact Info) Description 02/18/2025 Refill [facility] [address] [place], [place] [phone] Carlos Eduardo Marinelli, PharmD [address] [place] [address] Type 2 diabetes mellitus with hyperglycemia, with long-term current use of insulin ([facility]) Social History Tobacco Use Types [...] Description 09/30/2025 1:30 PM EST Office Visit [facility] [address] [place] [address] Pamela Dubois, OD [address] [place] [address] 10/20/2025 9:00 AM EST Medication Management [facility] [address] [place] [address] Carlos Eduardo Marinelli PharmD [address] [place] [address] documented as of this encounter Goals Goal [...] documented as of this encounter Care Teams Yellow Pages Space Salesperson Relationship Specialty Start Date End Date Roma Sharma MD [address] [place], [place] [phone] PCP - General Internal Medicine 01/04/25 Carlos Eduardo Marinelli, AaronD [address] [place] [phone] Pharmacist Internal Medicine 05/19/24 Ronald Church DMD [address] [place], [place] [phone] Dental Nursing Assistant 12/09/24 documented as of this encounter
--- OUTSIDE RECORDS SUMMARY | 2025-08-25 11:26 | XMS_ITS | Clinical Summary ---
Author Organization [employer] Address [address] [facility] [address] [place] [address] Care Team Providers Care Final Inspection Supervisor Name Role Phone Carlos Eduardo Marinelli PharmD Unavailable [phone] SamiRonald dobson DMD Unavailable Roma Sharma MD Primary Care Provider + Allergies No known active allergies Medications * This document contains information received from the source organization and may not represent a complete record from that organization. Blood Pressure Monitoring (Blood Pressure Cuff) misc Use daily as prescribed 1 each Active Additional Information Patient not taking.Reported on 08/25/2025 finasteride (Proscar) 5 MG tablet TAKE 1 TABLET BY MOUTH EVERY DAY FOR 90 DAYS 024 Active tamsulosin (Flomax) 0.4 MG 24 hr capsule Take 0.4 mg by mouth Once per day. 023 Active divalproex (Depakote ER) 250 MG 24 hr tablet Take 1 tablet (250 mg) by mouth 2 times daily. Do not crush, chew, or split. 60 tablet 08/15/20 11:18 AM EST 025 2025 Active Bisacodyl EC 5 MG EC tablet take 2 tablets (10mg) by mouth at bedtime Active glucose blood (FreeStyle Precision Tavo Test) test stripIndications :Type 2 diabetes mellitus with hyperglycemia, with long-term current use of insulin (HCC) Use to check blood sugar up to three times daily as needed for hypoglycemia or sensor failure. 100 each 11 08/15/20 25 11:18 AM EST 025 2025 Active Lancets 33G miscIndications: Type 2 diabetes mellitus with hyperglycemia, with long-term current use of insulin ([facility]) Use to check blood sugar up to three times daily as needed for hypoglycemia or sensor failure. 100 each 08/15/20 11:18 AM EST Active aspirin (Aspirin Adult Low Dose) 81 MG EC tabletIndication s:Uncontrolled type 2 diabetes mellitus with hyperglycemia (HCC) Take 1 tablet by mouth daily 90 tablet 3 Active meloxicam (Mobic) 15 MG tablet 1 tab PO daily x 2w then daily prn pain 30 tablet Active Sodium Fluoride (PreviDent 5000 Booster Plus) 1.1 % paste Apply 1 Application. to teeth 2 times daily. 112 g 3 025 Active Sodium Fluoride 1.1 % gel Apply 1 Application to teeth 2 times daily. 1 g 2 025 Active empagliflozin-me tFORMIN ER (Synjardy XR) 12.5-1000 MG 24 hr tabletIndication s:Type 2 diabetes mellitus with hyperglycemia, with long-term current use of insulin ([facility]) Take 1 tablet by mouth 2 times daily. 60 tablet 5 08/15/20 11:18 AM EST 025 Active glucose 4 g chewable tablet Chew 4 tablets (16 g) if needed for low blood sugar. 30 tablet Active Dulaglutide (Trulicity) 0.75 MG/0.5ML solution auto-injectorInd ications:Type 2 diabetes mellitus with hyperglycemia, with long-term current use of insulin ([facility]) Inject 0.75 mg under the skin 1 (one) time per week. 2 mL 5 08/15/20 2:08 PM EST Active Continuous Glucose Sensor (FreeStyle Rob 3 Plus Sensor) miscIndications: Type 2 diabetes mellitus with hyperglycemia, with long-term current use of insulin ([facility]) 1 each every 15 days. 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 15 mL 6 024 2024 Lancet Devices (Lancing Device) miscIndications: Type 2 diabetes mellitus with hyperglycemia, with long-term current use of insulin (HCC) Use as directed to test blood sugar. 1 each 025 2024 Discontinued(M ed list cleanup (will not trigger notification to Pharmacy)) insulin glargine (Lantus SoloStar) 100 UNIT/ML penIndications:T ype 2 diabetes mellitus with hyperglycemia, with long-term current use of insulin ([facility]) Inject 20 units under the skin once daily 15 mL 11 025 2024 Discontinued(P atient refused) Active Problems Problem Noted Date Diagnosed Date Overweight 08/25/2025 Screen for STD (sexually transmitted disease) No vaccination-pt refuse 08/25/2025 Knee pain, left 04/05/2025 Tendinosis of right [...] discussed with him going to groups including [employer] meetings on Tuesdays and at [facility] He feels safe at home and is [...] with loved ones who and relocation from [place] to [place] a year ago as triggers. Jamari finds support in the community. 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 Pt reports having diabetes as a chronic disease. The passing of his mother and sister years ago is a trigger for Jamari and leads to his depressive mood. Pt reports being able to manage and cope on his own. He attends a Day Program in [facility] Friday through Friday and reports having social support from the community, his JOINT MACHINE OPERATOR and his family. clinician engaged patient with active/reflective listening. Reviewed and assessed for risk, current stressors and protective factors using open-ended questions. Pt was connected with OP services but stopped attending session about two months ago. He declined OP referral and will contact clinician if he changes his mind regarding MH services. Provided information for [facility] centers, [facility] help line and HHC. clinician will provide additional support during next [...] with loved ones who and relocation from [place] to [place] a year ago as triggers. Jamari finds support in the community. 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 Pt reports receiving support from his daughter [...] I gave him information on psychotherapist from [facility] at [facility], so he can call and make an [...] Xrays of both knees, refer to orthopedics. 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 Vitamin D deficiency 04/22/2024 Assessment & Plan (04/22/2024 3:25 PM EDT): Vit D levels is fairly normal at this time, we'll restart Vit at upcoming appts so that we can closely fu DM med tolerance first. Alcohol abuse 04/12/2024 Mixed hyperlipidemia 04/06/2024 Assessment & Plan (04/22/2024 [...] [employer] and AUD program here at [facility], AA meetings and reach out to recovery coaches. Assessment & Plan (04/06/2024 4:32 PM EDT): Has cutdown significantly D/w him re options to go to AA, AUD program or local groups /meetings including [employer] , he declined Advised to quit ETOH, check HIV, Hepatitis profile. Limited access to food 04/06/2024 Assessment & Plan (04/06/2024 4:32 PM EDT): Refer to SDOH Microcytic anemia 01/03/2024 Assessment & Plan (08/25/2025 9:50 AM EST): - Mild microcytic anemia noted. No evidence of gastrointestinal bleeding or other acute causes. Colonoscopy is pending, referred earlier this year. - Ordered repeat blood tests for anemia. Reinforced need to complete colonoscopy. Will review results when available. - Consider hematology referral if nay other abn result. Abnormal EKG 12/31/2023 Acute metabolic encephalopathy 12/31/2023 JEN (acute kidney injury) 12/31/2023 Diabetes mellitus 12/31/2023 DKA (diabetic ketoacidosis) 12/31/2023 Genital infection 12/31/2023 Hyperphosphatemia 12/31/2023 Hypothermia 12/31/2023 Pterygium eye, bilateral 12/31/2023 Sepsis (CMS/HCC) 12/31/2023 Type 2 diabetes mellitus wit h hyperglycemia, with long-term current use of insulin 12/12/2023 Assessment & Plan (08/25/2025 9:49 AM EST): - He's off Insulin, dc from [employer] - Type 2 diabetes mellitus is currently [...] constipation, and vomiting. Patient tolerating medication well. Assessment & Plan (01/04/2025 2:53 PM EDT): [...] adjust sliding scale as needed, patient has sifonr 3 system Add Metformin XR 750/d, will monitor GFR in 4-5w Refer to [facility] clinic and nutrition DTaP. Assessment & Plan (04/06/2024 4:29 PM EDT): Uncontrolled. Recently back on meds, not fully compliant Continue on lantus 40u/d, order labs and fu with me in 3-4w to adjust meds Counseled re more frequent low calorie/carb meals, he has info re local pantry in [place], refer to [facility]. Check fgstk 2x daily Encouraged physical activity as tolerated. Primary hypertension 12/12/2023 Assessment & Plan (11/05/2024 1:34 PM EST): [...] me in 4w, will do BMP then Aspiration pneumonia of both lower lobes due to regurgitated food (CMS/HCC) 12/12/2023 History of BPH 12/12/2023 Lactic acidosis 12/12/2023 Macrocytosis 12/12/2023 Special screening for malignant neoplasms, colon 02/08/2019 Overview (04/05/2025): Added automatically from request for surgery [id number] S/P left knee arthroscopy 08/08/2017 Old complex tear of medial meniscus of left knee 05/23/2017 Chest pressure 01/29/2016 Overview (04/05/2025): 01/29/16: Standard treadmill with reproduction of chest discomfort and ischemic ST depression that started in stage I and lasted late into recovery Gastroesophageal reflux disease without esophagi tis 01/29/2016 Hyperlipidemia 01/29/2016 Hypertension 01/29/2016 Resolved Problems Problem Noted Date Diagnosed Date Resolved Date Malnutrition 01/05/2024 08/25/2025 Severe protein-calorie malnutrition 01/01/2024 08/25/2025 Acute hypoxic respiratory failure (CMS/HCC) 12/31/2023 08/25/2025 Encounters Date Type Department Care Team Description 08/25/2025 9:00 AM EST Office Visit [facility] [address] [place] [address] Roma Sharma MD Microcytic anemia (Primary Dx); Type 2 diabetes mellitus with hyperglycemia, with long-term current use of insulin (HCC); Overweight; Primary hypertension; Mixed hyperlipidemia; Screen for STD (sexually transmitted disease); No vaccination-pt refuse; Dietary counseling; Exercise counseling 08/25/2025 Travel 08/24/2025 Telephone [facility] [address] [place] [address] Roma Sharma MD Chart prep 08/11/2025 Travel 08/10/[address] [phone] Roma Sharma MD 08/10/2025 Patient Outreach [address] [address] oRma Sharma MD Pre-visit Planning ((Unable to reach for PVP screening or LVM) to be completed in office ) 07/23/2025 Refill [facility] [address] [place] [phone] Roma Sharma MD 07/13/[address] [phone] Roma Sharma MD Prior Authorization 07/12/2025 Telephone [facility] [address] [place] [phone] Ronald Church DMD 07/12/2025 Refill [facility] [address] [place] [phone] Carlos Eduardo Marinelli, PharmD Uncontrolled type 2 diabetes mellitus with hyperglycemia (HCC) 06/28/[address] [phone] Carlos Eduardo Marinelli, PharmD Type 2 diabetes mellitus with hyperglycemia, with long-term current use of insulin (HCC) (Primary Dx) 06/17/2025 Orders Only [facility] [address] [place] [phone] Roma Sharma MD 06/16/2025 Travel 06/15/2025 9:30 AM EDT Office Visit [facility] [address] [place] [phone] Ronald Church DMD 05/26/2025 2:30 PM EDT Office Visit [facility] [address] [place] [phone] Ronald Church DMD from Last 3 Months Immunizations Immunization Administration Dates Next Due HepB-CpG 08/25/2024,06/28/2024 Influenza injectable quadriv alent preservative free 08/09/2020,06/25/2019,10/01/2018 Influenza, High Dose Seasona l, Preservative Free 06/15/2024 Pfizer Covid-19 Vaccine 12+ 06/17/2024 Pneumococcal Conjugate PCV 20 06/28/2024 Tdap 06/15/2024,07/16/2015 Zoster, Recombinant 08/11/2025,04/15/2025 Family History Medical History Relation Name Comments [...] Mass Index 25.21 08/25/2025 9:25 AM EST Plan of Treatment Upcoming Encounters Date Type Department Care Team (Late st Contact Info) Description 09/30/2025 1:30 PM EST Office Visit [facility] [address] [place] [address] TarPamela flores, OD [address] [place] [address] 10/20/2025 9:00 AM EST Medication Management [facility] [address] [place] [address] Carlos Eduardo Marinelli, PharmD [address] [place] [address] Health Maintenance Due Date Last Done Comments CT Colonography 1955 Colonoscopy 1955 Colorectal Cancer Screening 1955 FIT DNA/Cologuard 1956 FIT 1956 FOBT 1955 Sigmoidoscopy 1955 SDOH Screening 04/06/2025 04/06/2024 COVID-19 Vaccine (2 - season) 2025 06/17/2024 Influenza Vaccine (#1) 2025 , 08/09/2020, 06/25/2019, Additional history exists Depression Monitoring 06/01/2025 11/29/2024, 025 Dental Prophylaxis 09/30/2025 03/29/2025, 0 09/28/2024, 04/20/2024 Dental Oral Exam 10/07/2025 04/05/2025, 02/12/2024 Diabetes: Hemoglobin A1C 11/11/2025 025, 05/13/2025, 02/01/2025, Additional history exists Diabetes: Urine Protein Screening 06/17/2026 06/17/2025, 04/09/2024 Lipid Panel 06/17/2026 06/17/2025, 04/09/2024 Eye Exam 07/27/2026 07/27/2024, 11/0 01/2024, 07/27/2024, Additional history exists Alcohol/Substance Use Screening 08/25/2026 08/25/2025 Diabetes: Foot Exam 08/25/2026 08/25/2025, 08/25/2025, 08/25/2025, Additional history exists Tobacco Screening 08/25/2026 08/25/2025 Dental X-Ray: Full Mouth 02/12/2027 02/12/2024 RSV Patients and Patients Aged 60 years or older (1 - 1-dose 75+ series) 2031 DTaP/Tdap/Td Vaccines (3 - Td or Tdap) 06/15/2034 06/15/2024, 07/16/2015 Hepatitis C Screening Completed 04/09/2024 Pneumococcal Vaccine: 50+ Years Completed 06/28/2024 Hepatitis B Vaccines Completed 08/25/2024, 06/28/20 Zoster Vaccines Completed 08/11/2025, 04/15/2025 Dental X-Ray: Bitewings Discontinued HIB Vaccines Aged [...] chronic kidney disease No Roma Sharma MD Procedures Procedure Name Priority Date/Time Associated Diagnosis Comments RETICULOCYTE COUNT Routine 08/25/2025 9: 54 AM EST Microcytic anemia POCT GLUCOSE Routine 08/25/2025 9:27 AM EST Type 2 diabetes mellitus with hyperglycemia, with long-term current use of insulin (HCC) POCT GLYCATED HEMOGLOBIN, TOTAL Routine 08/11/2025 9:37 AM EST Type 2 diabetes mellitus with hyperglycemia, with long-term current use of insulin (HCC) ALBUMIN, RANDOM URINE W/CREATININE Routine 06/17/2025 8:14 AM EDT VITAMIN B12 Routine 06/17/2025 8:14 AM EDT LIPID PANEL, STANDARD Routine 06/17/2025 8:14 AM EDT BASIC METABOLIC PANEL Routine 06/17/2025 8:14 AM EDT HEPATIC FUNCTION PANEL Routine 06/17/2025 8:14 AM EDT DENTURE ADJUSTMENT Routine 06/15/2025 9: 30 AM EDT DENTURE ADJUSTMENT Routine 05/26/2025 2: 30 PM EDT PERIODIC ORAL EVALUATION - ESTABLISHED PATIENT Routine 04/05/2025 9:00 AM EDT PROPHYLAXIS - ADULT Routine 03/29/2025 1 0:00 AM EDT HEPATITIS PANEL, GENERAL Routine 04/09/2024 9:20 AM EDT Type 2 diabetes mellitus with hyperglycemia, with long-term current use of insulin (CMS/HCC) PANORAMIC RADIOGRAPHIC IMAGE Routine 02/12/2024 10:00 AM EDT from Last 3 Months or Most Recently Relevant to Health Maintenance Results * (ABNORMAL) Reticulocyte Count (08/25/2025 9:54 AM EST) Reticulocytes Absolute 0.056 0.026 - 0.095 X10*6/uL [facility] Immature Retic Fraction 8.6 2.3 - 13.4 % [facility] Retic HGB Equivalent 27.4(L) 30.0 - 35.0 pg [facility] Reticulocyte Percent 1.0 0.5 - 1.8 % [facility] Blood Venous blood specimen / Unknown 08/25/2025 9:54 AM EST 08/25/2025 11:11 AM EST us Roma Sharma MD LAB BLOOD ORDERABLES Fin al Result [facility] [address] [place] [address] [phone] * POCT Glucose (08/25/2025 9:27 AM EST) Pathologist [facility] Glucose Blood, POC 168 60 - 200 mg/dL QC Media Lot # [id number] Lot# Expiration Date Blood Capillary blood specimen / Unknown 08/25/2025 9:27 AM EST Roma Sharma MD POINT OF CARE TEST ENTER /EDIT ORDERABLES Final Result * (ABNORMAL) POCT Hgb A1c (08/11/2025 9:37 AM EST) Pathologist [facility] Hemoglobin A1C 7.5(A) 4.0 - 5.7 % QC Media Lot # [id number] Lot# Expiration Date Blood 08/11/2025 9:37 AM EST Roma Sharma MD POINT OF CARE TEST ENTER /EDIT ORDERABLES Final Result * (ABNORMAL) Albumin, Random Urine W/Creatinine (06/17/2025 8:14 AM EDT) [facility] Creatinine, Urine 89.15 mg/dL [facility] Microalbumin Urine 32.0 mg/L H [facility] Microalbum Creatinine Ratio Ur 35.8(H) <30 ug/mg cr [facility] Comment:Albumin/Creatinine R atio Reference Ranges: Normal: < 30 ug/mg creatinine Microalbuminuria: 30 - 300 ug/mg creatinineClinical Albuminuria: > 300 ug/mg creatinine 06/17/2025 8:14 AM EDT 06/17/2025 11:57 AM EDT Roma Sharma MD LAB URINE ORDERABLES Fin al Result [facility] [address] [place] [phone] * Vitamin B12 (06/17/2025 8:14 AM EDT) [facility] Vitamin B12 424 200 - 900 pg/mL [facility] Comment:NORMAL 200-900 PG/ML INDETERMINATE 160-199 PG/ML DEFICIENT < 160 PG/ML 06/17/2025 8:14 AM EDT 06/17/2025 11:21 AM EDT Roma Sharma MD LAB BLOOD ORDERABLES Fin al Result Performing Organization Address [facility] Co de Phone Number [facility] [address] [place] [phone] * Hepatic Function Panel (06/17/2025 8:14 AM EDT) Pathologist [facility] Bilirubin, Total 0.4 0.0 - 1.0 mg/dL [facility] Bilirubin, Direct 0.2 0.0 - 0.5 mg/dL [facility] Aspartate Amino Transferase 21 5 - 37 U/L [facility] Alanine Aminotransferase 15 0 - 40 U/L [facility] Total Protein 7.6 6.5 - 8.0 g/dL [facility] Albumin Level 4.5 3.5 - 5.0 g/dL [facility] Alkaline Phosphatase 59 39 - 117 U/L [facility] 06/17/2025 8:14 AM EDT 06/17/2025 11:21 AM EDT Roma Sharma MD LAB BLOOD ORDERABLES Fin al Result Performing Organization Address [facility] Co ct Phone Number [facility] [address] [place] [phone] * (ABNORMAL) Lipid Panel, Standard (06/17/2025 8:14 AM EDT) Pathologist [facility] Triglycerides 72 <150 mg/dL [facility] Comment:Desirable Triglyceri de: less than 150 mg/dLBorderline High Triglyceride 150-199 mg/dLHigh Triglyceride: 200-499 mg/dLVery High Triglyceride: greater than or equal to 5OO mg/dL Cholesterol 97 <200 mg/dL [facility] Comment:Desirable Cholestero l: less than 200 mg/dLBorderline High Cholesterol: 200-239 mg/dLHigh Cholesterol: greater than 239 mg/dL LDL Cholesterol Calculated 49 <100 mg/dL [facility] Comment:Desirable LDL: less than 100 mg/dLNear Optimal/Above Optimal LDL: 110- 129 mg/dLBorderline High LDL: 130-159 mg/dLHigh LDL: 160-189 mg/dLVery High LDL: greater than or equal to 190 mg/dL HDL Cholesterol 34(L) >40 mg/dL [facility] Comment:Desirable HDL: great er than 40 mg/dL Note: This HDL assay may give artificially low results in patients with liver disease. 06/17/2025 8:14 AM EDT 06/17/2025 11:21 AM EDT us Roma Sharma MD LAB BLOOD ORDERABLES Fin al Result [facility] [address] [place] [phone] * (ABNORMAL) Basic Metabolic Panel (06/17/2025 8:14 AM EDT) Sodium 143 135 - 145 mmol/L [facility] Potassium 3.9 3.3 - 5.1 mmol/L [facility] Chloride 106 96 - 108 mmol/L [facility] Carbon Dioxide 29 22 - 29 mmol/L [facility] Anion Gap 12 12 - 20 [facility] Urea Nitrogen (BUN) 10 9 - 16 mg/dL [facility] Creatinine, Serum 0.75 0.5 - 1.4 mg/dL [facility] Estimated Glomerular Filt Rate >60 [facility] Comment:Chronic Kidney Disea se: Estimated GFR < 60 mL/min/1.85t3[place] Kidney Disease: Estimated GFR < 15 mL/min/1.73m2 Glucose 139(H) 60 - 115 mg/dL [facility] Calcium 8.7 8.4 - 10.2 mg/dL [facility] 06/17/2025 8:14 AM EDT 06/17/2025 11:21 AM EDT Roma Sharma MD LAB BLOOD ORDERABLES Fin al Result Performing Organization Address [facility] Co de Phone Number [facility] [address] [place] [phone] [phone] * Hepatitis Panel, General (04/09/2024 9:20 AM EDT) Hepatitis A IgM Nonreactive Nonreactive [facility] Comment:IgM antibodies to HEARD V not detected; does not exclude earlyacute or recovered HAV infection. ~Hepatitis B Surface Antibody NONREACTIVE Nonreactive [facility] Comment:Nonreactive: < 8.00 mIU/mL Hepatitis B Core Antibody Nonreactive Nonreactive [facility] Hepatitis C Antibody Nonreactive Nonreactive [facility] Comment:Antibodies to HCV no t detected; does not exclude early acuteHCV infection. Hepatitis B Surface Ag Negative Negative [facility] Blood 04/09/2024 9:20 AM EDT 04/09/2024 10:40 AM EDT Roma Sharma MD LAB BLOOD ORDERABLES Fin al Result Performing Organization Address [facility] Co de Phone Number [facility] [address] [place] [address] [phone] from Last 3 Months or Most Recently Relevant to Health Maintenance Additional Health Concerns Active Problems Noted Date Diagnosed Date Help patients manage their type 2 diabetes 08/25 Weekly blood pressure task 08/25/2025 Help patients manage their type 2 diabetes 08/25 Patient has chronic kidney disease 08/25/2025 Weekly blood pressure task 08/25/2025 Patient has chronic kidney disease 08/25/2025 Insurance [facility] [employer] (HMO D-SNP) ANNE LERNER [id number] DENTAL - [facility] Care Teams Final Inspection Supervisor Relationship Specialty Start Date End Date Roma Sharma MD [address] [place] [address] PCP - General Internal Medicine 01/04/25 Carlos Eduardo Marinelli PharmD [address] [place] [address] Pharmacist Internal Medicine 05/19/24 Ronald Church DMD [address] [place] [address] Dental Roll Examiner 12/09/24
[2025-08-25 12:22] LABS: Ferritin 65 ng/mL (20-250)
[2025-08-25 12:29] LABS: Folate 13.0 ng/mL (> or = 4.0); Vitamin B12 342 pg/mL (200-900)
[2025-08-26 05:03] LABS: HBS Num1 61.74 mIU/mL (0-7.99); HBc Num1 0.07 S/CO (0.00-0.79); HBsAGNum1 0.52 S/CO (0.00-0.99); HIV Num 1 0.08 S/CO (0.00-0.99); Hepatitis A Antibody IgM 0.16 Index (0-0.79); Hepatitis B Surface Antigen Negative (Negative); ~HepC Num1 0.10 S/CO (0.00-0.79); ~Hepatitis A Antibody IgM Nonreactive (Nonreactive); ~Hepatitis B Surface Antibody REACTIVE (Nonreactive); ~Hepatitis C Antibody Nonreactive (Nonreactive)
[2025-08-26 06:01] LABS: Syphilis Screen Nonreactive (Nonreactive)
== END 2025-08-25 09:51 | disposition home or self-care (01) ==
LOC: HO.HHCL 09:50
PROVIDERS: PCP Internal Medicine; Visit Provider Internal Medicine
DX: Z11.4 Encounter for screening for human immunodeficiency virus [HIV] (principal); D50.9 Iron deficiency anemia, unspecified; Z20.2 Contact with and (suspected) exposure to infections with a predominantly sexual mode of transmission
CPT/HCPCS: 36415; 82607; 82728; 82746; 85045; 86704; 86706; 86709; 86780; 86803; 87340; 87389